=== PATIENT | male | born 1970 | race Caucasian/White ===

== ENCOUNTER 2020-06-01 12:33 | Inpatient (IN) ==
[2020-06-01 14:02] LABS: Basophils # (auto) 0.02 K/uL (0-0.2); Basophils % (auto) 0.2 %; Eosinophils # (auto) 0.27 K/uL (0-0.5); Eosinophils % (auto) 3.2 %; Hematocrit (blood only) 43.6 % (42-52); Immature Granulocytes # (auto) 0.04 K/uL (0.00-0.02); Immature Granulocytes % (auto) 0.5 %; Lymphocytes # (auto) 2.25 K/uL (1.2-3.4); Lymphocytes % (auto) 26.8 %; Mean Corpuscular Hemoglobin 29.5 pg (25-34); Mean Corpuscular Hgb Conc 34.4 g/dL (32-36); Mean Corpuscular Volume 85.8 fL (80-100); Mean Platelet Volume 10.1 fL (7.4-10.4); Monocytes # (auto) 0.48 K/uL (0.11-0.59); Monocytes % (auto) 5.7 %; Neutrophils # (auto) 5.33 K/uL (1.4-6.5); Neutrophils % (auto) 63.6 %; Platelet Count 170 K/uL (130-400); RDW Coefficient of Variation 12.8 % (11.5-14.5); RDW Standard Deviation 40.3 fL (36.4-46.3); Red Blood Count 5.08 M/uL (4.7-6.1); White Blood Count 8.39 K/uL (4.8-10.8)
[2020-06-01 14:15] LABS: INR 1.1 (0.9-1.1); Partial Thromboplastin Time 28.2 Seconds (21.0-31.0); Prothrombin Time 11.2 Seconds (9.0-12.0)
--- NOTE | 2020-06-01 14:15 | Emergency Department Note ---
History of Present Illness General Chief complaint: Leg Injury/Pain Stated complaint: R LEG SWELLING AND PAIN Time Seen by Provider: 06/01/20 12:55 History of Present Illness Maximum Pain Intensity: 9 49-year-old male who presents to the emergency department with complaint of right leg swelling, chest pressure and shortness of breath. The patient reports that he started to get some right calf pain Thday evening, then swelling started yesterday. The patient reports progressively worsening shortness of breath. The reports that when he walked up the steps last night to go to bed, he had difficulty breathing. The thought that it may have been from anxiety, and had him slow his breathing down. The patient reports that his symptoms did improve, and was able to sleep. When he got up this morning, shortness of breath persisted with mild chest pressure. The patient denies history of heart disease. He does report borderline hypercholesterolemia, but was never started on medications. He denies any recent injury to his right leg. 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 The patient reports that he had similar right calf pain and shortness of breath 2 months ago, but that resolved within a few days. The patient reports that his glen grimm recently had a DVT and pulmonary embolus, and was admitted to [facility]. The believes that he is in the process of undergoing a coagulopathy work-up. The patient denies any known coronary artery disease in the family. He denies tobacco use. He currently rates his d iscomfort in the chest a 2 out of 10, and 6 out of 10 in the right calf. Home Medications Home Medications Medication Instructions Recorded Confirmed Type ibuprofen [Advil] 400 mg PO Q6H PRN 06/01/20 06/01/20 History Allergies Allergy/AdvReac Type Severity Reaction Status Date / Time morphine Allergy Mild UNK Unverified 06/01/20 14:39 Past Med/Surg History Medical History Dyslipidemia Pneumonia (Resolved) Surgical History History of appendectomy History of cardiac cath Family History Brother Deep vein thrombosis Grandfather (Maternal) Diabetes Social History Smoking Status: Former smoker Tobacco Type: Cigarettes Hx Alcohol Use: Yes Alcohol type: beer Alcohol Intake Frequency: Monthly or Less Hx Substance Use: No Preferred Language: Malawian Communication Ability: Effective 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 Beliefs That Will Affect Care: None marital status: Current Living Situation: Spouse Other Information That Helps Us Care for You: No Feels Safe at Home: Yes Safety Concerns: Feels Safe At This Time Review of Systems 10 system review was performed and was negative except for pertinent positives and negatives as indicated in history of present illness Physical Exam Vital Signs Vital Signs - 24 hr 06/01/20 12:39 06/01/20 13:40 06/01/20 14:34 Temperature 36.7 C Temperature Source Oral Pulse Rate 67 Pulse Rate [Apical] 62 Respiratory Rate 20 18 Respiratory Depth Normal Blood Pressure 146/89 H Blood Pressure [Left Arm] 141/80 H Blood Pressure Mean 108 Blood Pressure Mean [Left Arm] 100 Pulse Oximetry 96 96 95 Oxygen Delivery Method Room Air Room Air Room Air Sepsis Recent Fever Within 48 Hours No Sepsis New/Unexplained Change in Mental Status N/A Sepsis Action Taken by Nursing No Action Required CONSTITUTIONAL: Healthy and well nourished. Alert and oriented X 3. Patient appears in mild discomfort with right calf pain. HEENT: Normocephalic, atraumatic. Pupils equal, round and reactive. No scl eral icterus or conjunctival injection. NECK: Full active range of motion without discomfort. LYMPHATICS: No cervical chain adenopathy. RESPIRATORY: Clear to auscultation bilaterally with no wheezing, crackles, rhonchi or stridor. CARDIOVASCULAR: Regular rate and rhythm with no murmurs, rubs or gallops. GASTROINTESTINAL: Bowel sounds present in all quadrants. Abdomen is soft and nontender to palpation. MUSCULOSKELETAL: Examination shows edema of the right calf with tenderness to palpation. No overriding erythema or increased warmth to palpation. No popliteal fullness. No tenderness to palpation about the knee or ankle. Pedal pulses are intact. INTEGUMENTARY: No rash or other significant dermatologic conditions noted. HEMATOLOGIC: No ecchymosis or petechiae. PSYCHIATRIC: Positive affect. NEUROLOGIC: No focal neurologic deficits noted. Course Course Patient history and physical exam were performed. Nurse's notes were reviewed. Vital signs were reviewed, showing a blood pressure of 146/89. The patient is otherwise afebrile, normotensive and with normal O2 saturation on room air. IV access was established, and labs were drawn. The patient refused any analgesics. Review of labs shows a normal CBC, CMP, lipase and TSH. Coagulation studies are also normal. ECG was performed and was unremarkable. The patient was placed on athletic monitor while in the emergency department. Troponin is elevated at 1.05. Chest CT angiography shows a saddle embolus that traverses the midline. Extensive pulmonary emboli is noted, involving the right distal main pulmonary artery with bulky pulmonary emboli involving the right hemithorax pulmonary arterial vasculature and to a lesser extent right upper lobe pulmonary arterial vasculature. Venous ultrasound of bilateral lower extremities also shows an extensive right lower extremity DVT. Left lower extremity is normal. The case was further discussed with Dr. Campos, ED attending physician, who recommended discussing the case further with our hospitalist regarding need to transfer to a tertiary care facility for further intervention or thrombolysis. I then discussed the case with the [facility] Hospitalist service, who requested that I also discussed the case with an school operations manager. I was able to contact Dr. Avilez, school operations manager, who recommended that since the patient is currently hemodynamically stable, he can be admitted and treated with IV heparin. I placed an order for IV heparin. I then discussed the case further with the [facility] hospitalist, who will evaluate the patient. Shortly after the patient was evaluated by the [facility] Hospitalist team, I was advised by our assembler unit that the patient's [id number] ( of the patient's brother who recently had pulmonary emboli) has requested to speak with the patient's medical provider, and that the patient be transferred to [facility]. I did explain that I would be unable to discuss this with other family members without the patient's consent per HIPAA laws. I also had our network contract manager page the [facility] hospitalist service regarding this request. The hospitalist service did go back in and speak with the patient and his , who again was concerned if the patient's condition worsens, he would need to be transferred to another facility, and could certainly be at higher risk for adverse event given his current condition. At this point, the hospitalist service came to talk to me about options for transfer. I also had our dependency case manager involved as well. In the meantime, bilateral lower extremity Dopplers were performed to show an extensive right DVT, and no DVT in the left lower extremity. These findings were discussed with the patient and . I also discussed complications with transfer to [facility], especially with their facility not being the closest tertiary care center. Our dependency case manager also discussed possible insurance implications as well. I do understand the patient's and 's concern should his condition deteriorate, and offered to discuss the case with an school operations manager at either [facility] or [facility], the two other closest tertiary care centers. The patient and were in agreement, and re quested transfer to [facility] if accepted. I then discussed the case further with Dr. Valdes, school operations manager at [facility]. The patient's case, including laboratory and imaging results, along with the patient's vital signs and current treatment, were discussed with Dr. Valdes. He indicated that because the patient is currently stable, their facility would essentially provide the same treatment, including IV heparin and telemetry. Even if the patient's case were to worsen, they would only provide additional systemic anticoagulation. He also indicated that his condition would not warrant interventional procedure. He was in agreement with our school operations manager's treatment recommendations. The case was then further discussed with the patient and , and they were relieved that they would be provided the same treatment options at our facility. They were in agreement with admission. I recontacted the [facility] Hospitalist group advise them of the patient and 's wishes. See their dictation for further treatment and final disposition. Administered Medications Heparin Sodium/Dextrose (Heparin Sodium/Dextrose) 25,000 units in 500 mls @ 0.02 mls/hr IV .Q24H [facility]; Protocol Stop: 07/01/20 15:29 Last Admin: 06/01/20 16:35 Dose: 1,500 units/hr, 30 mls/hr Documented by: [id number] Cosigned by: [id number] Discontinued Medications Acetaminophen (Tylenol) Confirm Administered Dose 650 mg .ROUTE .STK-MED ONE Stop: 06/01/20 17:33 Last Admin: 06/01/20 17:35 Dose: 650 mg Documented by: [id number] Heparin Sodium (Porcine) (Heparin Iv Bolus) Confirm Administered Dose 10,000 units .ROUTE .STK-MED ONE Stop: 06/01/20 16:15 Last Admin: 06/01/20 16:35 Dose: 7,000 units Documented by: [id number] Cosigned by: [id number] Heparin Sodium/Dextrose () 1 ea IV NOW STA; Protocol Stop: 06/01/20 15:24 Last Admin: 06/01/20 16:36 Dose: 1 ea Documented by: [id number] Ioversol (Optiray 320 125ml) 88 ml IV ONCE ONE Stop: 06/01/20 14:37 Last Admin: 06/01/20 14:38 Dose: 88 ml Documented by: [id number] Critical Care Time Critical Care Time: Yes Total Critical Care Time: 95 I have personally spent 95 minutes of critical care time in the direct management of this patient. This includes bedside care, interpretation of diagnostic studies, and testing, discussion with consultants, patient, and family members, and other required patient management activities. This 95 minutes is in excess of all separately billable procedures. Medical Decision Making Medical Records Attestation: I reviewed the patient's medical records. Home Medications Current Medication List: was personally reviewed by me Laboratory Data Attestation: I reviewed the patient's lab results. Result diagrams: 06/01/20 13:50 06/01/20 13:50 Lab Results 06/01/20 06/01/20 06/01/20 Range/Units 13:50 13:50 13:50 WBC 8.39 (4.8-10.8) K/uL RBC 5.08 (4.7-6.1) M/uL Hgb 15.0 (14.0-18.0) g/dL Hct 43.6 (42-52) % MCV 85.8 (80-100) fL MCH 29.5 (25-34) pg MCHC 34.4 (32-36) g/dL RDW Std Deviation 40.3 (36.4-46.3) fL RDW Coeff of [place] 12.8 (11.5-14.5) % Plt Count 170 (130-400) K/uL MPV 10.1 (7.4-10.4) fL Immature Gran % (Auto) 0.5 % Neut % (Auto) 63.6 % Lymph % (Auto) 26.8 % Alfalfa % (Auto) 5.7 % Eos % (Auto) 3.2 % Baso % (Auto) 0.2 % Neut # (Auto) 5.33 (1.4-6.5) K/uL Lymph # (Auto) 2.25 (1.2-3.4) K/uL Alfalfa # (Auto) 0.48 (0.11-0.59) K/uL Eos # (Auto) 0.27 (0-0.5) K/uL Baso # (Auto) 0.02 (0-0.2) K/uL Immature Gran # (Auto) 0.04 H (0.00-0.02) K/uL PT 11.2 (9.0-12.0) Seconds INR 1.1 (0.9-1.1) APTT 28.2 (21.0-31.0) Seconds PTT Ratio 1.0 Sodium 141 (136-145) mmol/L Potassium 4.1 (3.5-5.1) mmol/L Chloride 111 H (98-107) mmol/L Carbon Dioxide 26 (21-32) mmol/L Anion Gap 5.0 (3-11) BUN 17 (7-18) mg/dl Creatinine 1.37 (0.6-1.4) mg/dl Est Cr Clr Drug Dosing 75.7 ml/min Est GFR ( Amer) 69.2 Est GFR (Non-Af Amer) 59.7 BUN/Creatinine Ratio 12.2 (10-20) Glucose 89 (70-99) mg/dl Calcium 9.2 (8.5-10.1) mg/dl Total Bilirubin 0.4 (0.2-1) mg/dl AST 28 (15-37) U/L ALT 56 (12-78) U/L Alkaline Phosphatase 104 (45-117) U/L CK-MB (CK-2) 3.6 (0.5-3.6) ng/ml Troponin I 1.050 H* (0-0.045) ng/ml NT-Pro-B Natriuret Pep 678 (0-900) pg/ml Total Protein 7.5 (6.4-8.2) gm/dl Albumin 3.6 (3.4-5.0) gm/dl Globulin 3.9 (2.5-4.0) gm/dl Albumin/Globulin Ratio 0.9 (0.9-2) Lipase 193 (73-393) U/L TSH 0.908 (0.300-4.500) uIu/ml Imaging Data Attestation: I personally reviewed and interpreted this imaging study as follows: My Impression: CT angiography of the chest shows a saddle embolus with other pulmonary emboli. There is no evidence for right heart strain. Bilateral lower extremity venous Dopplers shows an extensive right lower extremity DVT. Left lower extremity is clear. Radiologist reports were reviewed. Radiologist's Impression: CT angio chest PE protocol CT DOSE: 759.22 mGy.cm HISTORY: Chest pain. Dyspnea. Chest Pain, R leg swelling - eval for PE TECHNIQUE: Multiaxial CT images of the chest were performed following the intravenous administration of contrast to evaluate the pulmonary arteries. Maximal intensity projection images were also obtained. A dose lowering technique was utilized adhering to the principles of ALARA. COMPARISON STUDY: None. FINDINGS: Study is positive for a saddle embolus. This traverses the midline. There is extensive pulmonary emboli involving the right distal main pulmonary artery with extension to the right lower and to a lesser extent right upper lobe pulmonary arterial vasculature. There is prominent but less bulky pulmonary embolic change involving the left lower and left upper pulmonary arterial vasculature. There is no evidence for right heart strain. Evaluation of the lung parenchyma shows the lungs region clear. There is minimal interstitial infiltrative change anterior aspect left upper lobe. The pulmonary apices are clear. IMPRESSION: 1. Saddle embolus. 2. Bulky pulmonary emboli involving the right hemithoracic pulmonary arterial vasculature and to a lesser extent left. US venous doppler LE BI HISTORY: Pain. Edema. R leg swelling, SOB COMPARISON STUDY: None. FINDINGS: Acute deep venous thrombosis of the right thigh and lower leg. This involves the distal femoral vein, popliteal, posterior tibial, anterior tibial, and peroneal vessels. The left leg shows no evidence for deep venous thrombosis. IMPRESSION: Extensive acute deep venous thrombosis right leg. Normal left leg. ECG Data Indication: + chest pain and + SOB/dyspnea Rate (beats per minute): 61 Rhythm: + normal sinus ECG Intervals/blocks: + Normal QRS ECG [place]: + Normal Comparison ECG Date: from (10/16/2013) Change: the following changes noted (QT interval slightly prolonged, and T wave amplitude decrease in anterior leads) Blood Pressure Blood Pressure Findings: Elevated blood pressure MDM Narrative Cardiac monitoring: An order was placed for continuous cardiac monitoring. The monitor shows a rate of 61 bpm with a normal sinus rhythm. night monitor history was reviewed throughout the evaluation, and no dysrhythmias were noted. 2 days work-up shows evidence for a saddle pulmonary embolus. The patient also has elevated troponin. It is noted that the patient does not have any right heart strain on CT imaging. The case has been discussed with our hospitalist school operations manager, as well as a tertiary care school operations manager from from [facility] who have stated that treatment at this time is with IV heparin. The patient has remained hemodynamically stable while in the emergency department. He is not dyspneic, and has maintained normal O2 saturations on room air. Not hypotensive, febrile or tachycardic. Although the patient does appear to be stable, he does have a moderate severity medical condition warranting low-dose management. I have thoroughly discussed this case with multiple medical providers and both the patient and , and they do feel comfortable and in agreement with local hospitalist management. Impression & Plan Acute saddle pulmonary embolism, Acute deep vein thrombosis (DVT) of right lower extremity, Elevated troponin I level Discharge Plan Visit Data *Final* Discharge Date/Time: 06/01/20 17:28 Chief Complaint: Leg Injury/Pain Stated Complaint: R LEG SWELLING AND PAIN ED Provider: Herlinda Campos ED Midlevel Provider: Danny Moore Discharge Problem: Acute saddle pulmonary embolism, Acute deep vein thrombosis (DVT) of right lower extremity, Elevated troponin I level Patient Disposition: Admitted As Inpatient Discharge Instructions Interventions: ED Discharge Assessment Last Done: 06/01/20 17:28 Discharge Problem: Acute saddle pulmonary embolism Qualifiers: Acute cor pulmonale presence: without acute cor pulmonale Qualified Code(s): I26.92 - Saddle embolus of pulmonary artery without acute cor pulmonale Acute deep vein thrombosis (DVT) of right lower extremity Qualifiers: Affected thrombotic vein of extremity: unspecified lower extremity proximal vein Qualified Code(s): I82.4Y1 - Acute embolism and thrombosis of unspecified deep veins of right proximal lower extremity
[2020-06-01 14:20] LABS: Alanine Aminotransferase 56 U/L (12-78); Albumin Level 3.6 gm/dl (3.4-5.0); Aspartate Aminotransferase 28 U/L (15-37); BUN Creatinine Ratio 12.2 (10-20); Blood Urea Nitrogen 17 mg/dl (7-18); Calcium 9.2 mg/dl (8.5-10.1); Carbon Dioxide 26 mmol/L (21-32); Chloride 111 mmol/L (98-107); Creatinine Clr Calc Pharmacy 75.7 ml/min; Est GFR (African American) 69.2; Est GFR (Non-African American) 59.7; Glucose 89 mg/dl (70-99); Lipase 193 U/L (73-393); Potassium 4.1 mmol/L (3.5-5.1); Sodium 141 mmol/L (136-145)
[2020-06-01 14:35] LABS: Albumin Globulin Ratio 0.9 (0.9-2); Alkaline Phosphatase 104 U/L (45-117); Bilirubin,Total 0.4 mg/dl (0.2-1); Creatine Kinase MB 3.6 ng/ml (0.5-3.6); Globulin 3.9 gm/dl (2.5-4.0); NT Pro B Type Natriuretic Pept 678 pg/ml (0-900); Thyroid Stimulating Hormone 0.908 uIu/ml (0.300-4.500); Total Protein 7.5 gm/dl (6.4-8.2)
[2020-06-01] MEDS ORDERED: OPTIRAY 320 125ml IV ONE (14:36)
--- NOTE | 2020-06-01 14:47 | CT Scan Report ---
CT angio chest PE protocol CT DOSE: 759.22 mGy.cm HISTORY: Chest pain. Dyspnea. Chest Pain, R leg swelling - eval for PE TECHNIQUE: Multiaxial CT images of the chest were performed following the intravenous administration of contrast to evaluate the pulmonary arteries. Maximal intensity projection images were also obtaine d. A dose lowering technique was utilized adhering to the principles of ALARA. COMPARISON STUDY: None. FINDINGS: Study is positive for a saddle embolus. This traverses the midline. There is extensive pulmonary emboli involving the right distal main pulmonary artery with extension t o the right lower and to a lesser extent right upper lobe pulmonary arterial vasculature. There is prominent but less bulky pulmonary embolic change involving the left lower and left upper pu lmonary arterial vasculature. There is no evidence for right heart strain. Evaluation of the lung parenchyma shows the lungs region clear. There is minimal interstitial infiltr ative change anterior aspect left upper lobe. The pulmonary apices are clear. IMPRESSION: 1. Saddle embolus. 2. Bulky pulmonary emboli involving the right hemithoracic pulmonary arterial vasculature and to a le sser extent left. ACT 112: Negative or not required by law. The above report was generated using voice recognition software. It may contain grammatical, syntax or spelling errors. Electronically signed by: Wayne Eldridge M.D. 06/01/2020 2:46 PM
--- NOTE | 2020-06-01 15:49 | Ultrasound Report ---
US venous doppler LE BI HISTORY: Pain. Edema. R leg swelling, SOB COMPARISON STUDY: None. FINDINGS: Acute deep venous thrombosis of the right thigh and lower leg. This involves the distal fem oral vein, popliteal, posterior tibial, anterior tibial, and peroneal vessels. The left leg shows no evidence for deep venous thrombosis. IMPRESSION: Extensive acute deep venous thrombosis right leg. Normal left leg. ACT 112: Negative or not required by law. The above report was generated using voice recognition software. It may contain grammatical, syntax or spelling errors. Electronically signed by: Wayne Eldridge M.D. 06/01/2020 3:48 PM
--- NOTE | 2020-06-01 16:05 | History & Physical Report ---
Date of Service June 01, 2020 History of Present Illness Chief Complaint: Right leg pain and swelling, SOB Primary Care Provider: Jesus Katz MD Pt is 49 y/o M with PMH mild dyslipidemia presented to ER with c/o R leg pain and swelling for several days. Denies any injury or trauma. Pt states some mild chest tightness and SOB with exertion for past couple of months. Last night increased SOB after climbing stairs with continued SOB with exertion today. SOB decreases at rest. Allergies Allergy/AdvReac Type Severity Reaction Status Date / Time morphine Allergy Mild UNK Unverified 06/01/20 14:39 Home Medications Home Medications Medication Instructions Recorded Confirmed Type ibuprofen [Advil] 400 mg PO Q6H PRN 06/01/20 06/01/20 History Past Med/Surg History Medical History No significant past medical history Surgical History History of cardiac cath Social History Smoking Status: Former smoker Tobacco Type: Cigarettes marital status: Current Living Situation: Spouse Feels Safe at Home: Yes Results & Data Results & [facility] ([facility] Vital Signs (Past 12 Hours) Vital Signs Temp Pulse Pulse Resp BP BP Pulse Ox 06/01/20 14:34 62 18 141/80 H 95 06/01/20 13:40 96 06/01/20 12:39 36.7 C 67 20 146/89 H 96 Code Status & VTE Plan VTE Prophylaxis Plan VTE Prophylaxis will be ordered: Yes
[2020-06-01] MEDS ORDERED: HEPARIN SOD (PORCINE) 1000 UNIT/ML 10 ML VIAL ONE (16:14)
[2020-06-01] MEDS: HEPARIN SODIUM/DEXTROSE 25,000 UNITS/500 ML BAG IV SCH (16:35)
--- NOTE | 2020-06-01 16:44 | Consultation ---
Date of Consultation June 01, 2020 Assessment & Plan (1) Saddle pulmonary embolus: (2) Elevated troponin: Pt is 49 y/o M with PMH mild dyslipidemia presented to ER with c/o R leg pain and swelling for several days. C/O mild chest tightness and SOB, dizziness with exertion for past couple of months. Last night increased SOB after climbing stairs with continued SOB with exertion today, SOB decreases at rest. Denies any worsening chest pain. In ER pt afebrile, P: 67, RR: 20, BP: 146/89, 96% on room air. No leukocytosis, H/H: 15/43, PLT: 140, normal coags, troponin: 1.0 CTA CHEST: 1. Saddle embolus. 2. Bulky pulmonary emboli involving the right hemithoracic pulmonary arterial vasculature and to a lesser extent left. VENOUS DOPPLER: Extensive acute deep venous thrombosis right leg. Normal left leg. -Hospitalist team was asked to evaluate patient for possible admission -Hypercoagulable work-up was added -ER provider - Danny Moore PA-C, as well as myself Zuleima Guerrero PA-C spoke to Dr. Avilez-supervisor core drilling/oral health therapist about patient and he had recommended patient at this time does not require further intervention and recommended heparin and monitoring on telemetry -Upon hospitalist evaluation with patient and patient's , patient's brother talking to on phone as well. Patient's and patient's brother as well of patient would like transfer to tertiary center -ER provider, Danny Moore PA-C made aware of patient and family wishes and reevaluates patient and will contact [facility] History of Present Illness Requesting Physician: Santy Moore PA-C Reason for Consultation: Possible Admission History of Present Illness Pt is 49 y/o M with PMH mild dyslipidemia presented to ER with c/o R leg pain and swelling for several days. Denies any injury or trauma. Pt states some mild chest tightness and SOB, dizziness with exertion for past couple of months. Last night increased SOB after climbing stairs with continued SOB with exertion today. SOB decreases at rest. Denies any worsening chest pain. Denies any fevers, chills, cough, hemoptysis. Does state that he drives to [facility] for work. Denies recent surgeries, any underlying known cancer. Patient reports that his brother had recent DVT and PE and has followed up with [facility] to try and find underlying cause. Patient reports that his brother was told it was unprovoked DVT/PE and he reports that he had negative hypercoagulable work-up. Denies fever/chills, diaphoresis, N/V/D/C, SANCHEZ, syncope, vision changes, neck pain, palpitations, sore throat, choking, otalgia, rhinorrhea, abdominal pain, paresthesias, weakness, rashes, urinary symptoms. Allergies Allergy/AdvReac Type Severity Reaction Status Date / Time morphine Allergy Mild UNK Unverified 06/01/20 14:39 Home Medications Home Medications Medication Instructions Recorded Confirmed Type ibuprofen [Advil] 400 mg PO Q6H PRN 06/01/20 06/01/20 History Patient History Medical History (Updated 06/01/20 @ 16:49 by Zuleima Guerrero PA-C) Dyslipidemia No significant past medical history Pneumonia (Resolved) Surgical History (Updated 06/01/20 @ 16:45 by Zuleima Guerrero PA-C) History of appendectomy History of cardiac cath Family History (Updated 06/01/20 @ 16:46 by Zuleima Guerrero PA-C) Brother Deep vein thrombosis Grandfather (Maternal) Diabetes Social History (Updated 06/01/20 @ 16:47 by Zuleima Guerrero PA-C) Smoking Status: Former smoker Tobacco Type: Cigarettes Hx Alcohol Use: Yes Alcohol Intake Frequency: Monthly or Less Hx Substance Use: No marital status: Current Living Situation: Spouse Feels Safe at Home: Yes Review of Systems Review of Systems: All systems reviewed & are unremarkable except as noted in HPI & below Physical Exam Physical Exam: General: no distress, overweight Head: normocephalic, atraumatic Eyes: conjunctiva non-injected, anicteric ENT: normal inspection external ears, nose, mucous membranes moist Neck: supple, trachea midline Lungs: clear, no respiratory distress, no wheezing/rhonchi/rales CV: RRR, no murmur, no pretibial edema Abd: normal BS, soft, non-tender Ext: no cyanosis, no calf tenderness Neuro: A&O x 3, no focal deficits noted, normal affect Skin: warm, dry Results & Data ([facility]) Vital Signs (Past 12 Hours) Vital Signs Temp Pulse Pulse Resp BP BP Pulse Ox 06/01/20 14:34 62 18 141/80 H 95 06/01/20 13:40 96 06/01/20 12:39 36.7 C 67 20 146/89 H 96 Laboratory Results Short CBC 06/01/20 Range/Units 13:50 WBC 8.39 (4.8-10.8) K/uL Hgb 15.0 (14.0-18.0) g/dL Hct 43.6 (42-52) % Plt Count 170 (130-400) K/uL BMP 06/01/20 13:50 Sodium 141 Potassium 4.1 Chloride 111 H Carbon Dioxide 26 BUN 17 Creatinine 1.37 Glucose 89 Calcium 9.2 Cardiac Enzymes 06/01/20 Range/Units 13:50 CK-MB (CK-2) 3.6 (0.5-3.6) ng/ml Troponin I 1.050 H* (0-0.045) ng/ml Liver Function 06/01/20 Range/Units 13:50 Total Bilirubin 0.4 (0.2-1) mg/dl AST 28 (15-37) U/L ALT 56 (12-78) U/L Alkaline Phosphatase 104 (45-117) U/L Albumin 3.6 (3.4-5.0) gm/dl Diagnostic Findings CTA CHEST: IMPRESSION: 1. Saddle embolus. 2. Bulky pulmonary emboli involving the right hemithoracic pulmonary arterial vasculature and to a lesser extent left. VENOUS DOPPLER: IMPRESSION: Extensive acute deep venous thrombosis right leg. Normal left leg.
--- NOTE | 2020-06-01 17:13 | History & Physical Report ---
Date of Service June 01, 2020 Assessment & Plan (1) Saddle pulmonary embolus: (2) Elevated troponin: Pt is 49 y/o M with PMH mild dyslipidemia presented to ER with c/o R leg pain and swelling for several days. C/O mild chest tightness and SOB, dizziness with exertion for past couple of months. Last night increased SOB after climbing stairs with continued SOB with exertion today, SOB decreases at rest. Denies any worsening chest pain. In ER pt afebrile, P: 67, RR: 20, BP: 146/89, 96% on room air. No leukocytosis, H/H: 15/43, PLT: 140, normal coags, troponin: 1.0 CTA CHEST: 1. Saddle embolus. 2. Bulky pulmonary emboli involving the right hemithoracic pulmonary arterial vasculature and to a lesser extent left. VENOUS DOPPLER: Extensive acute deep venous thrombosis right leg. Normal left leg. -Hospitalist team was asked to evaluate patient for admission -Hypercoagulable work-up was added -ER provider - Danny Moore PA-C, as well as myself Zuleima Guerrero PA-C spoke to Dr. Avilez-fixer supervisor/painter drum about patient and he had recommended patient at this time does not require further intervention and recommended heparin and monitoring on telemetry -Upon hospitalist evaluation with patient and patient's , patient's brother talking to on phone as well. Patient's and patient's brother would like consideration to transfer to tertiary center -ER provider, Danny Moore PA-C made aware of patient and family wishes and reevaluates patient and contacted [facility] and spoke with construction assistant continuous conveyor screen drier who reports no other intervention indicated at this time and if pt would have worsening would accept in transfer. Patient and family aware of recommendations and report understanding and wished to be admitted here at [facility] -Continue Heparin drip -Echo -Repeat troponin -EKG in am -Pulmonology consult -CBC, BMP in am (3) Dyslipidemia: Mild dyslipidemia. Not on any medications DVT Prophylaxis -Currently on Heparin IV for DVT PE that was present prior to admission Full Code as per discussion with pt Follows with Dr Katz for routine care Pt was seen and care coordinated with Dr Forte. See addendum History of Present Illness Chief Complaint: Right leg pain, SOB Primary Care Provider: Jesus Katz MD Pt is 49 y/o M with PMH mild dyslipidemia presented to ER with c/o R leg pain and swelling for several days. Denies any injury or trauma. Pt states some mild chest tightness and SOB, dizziness with exertion for past couple of months. Last night increased SOB after climbing stairs with continued SOB with exertion today. SOB decreases at rest. Denies any worsening chest pain. Denies any fevers, chills, cough, hemoptysis. Does state that he drives to [facility] for work. Denies recent surgeries, any underlying known cancer. Patient reports that his brother had recent DVT and PE and has followed up with [facility] to try and find underlying cause. Patient reports that his brother was told it was unprovoked DVT/PE and he reports that he had negative hypercoagulable work-up. Denies fever/chills, diaphoresis, N/V/D/C, SANCHEZ, syncope, vision changes, neck pain, palpitations, sore throat, choking, otalgia, rhinorrhea, abdominal pain, paresthesias, weakness, rashes, urinary symptoms. Allergies Allergy/AdvReac Type Severity Reaction Status Date / Time morphine Allergy Mild UNK Unverified 06/01/20 14:39 Home Medications Home Medications Medication Instructions Recorded Confirmed Type ibuprofen [Advil] 400 mg PO Q6H PRN 06/01/20 06/01/20 History Past Med/Surg History Medical History (Updated 06/01/20 @ 17:19 by Zuleima Guerrero PA-C) Dyslipidemia Pneumonia (Resolved) Surgical History History of appendectomy History of cardiac cath Family History Brother Deep vein thrombosis Grandfather (Maternal) Diabetes Social History Smoking Status: Former smoker Tobacco Type: Cigarettes Hx Alcohol Use: Yes Alcohol Intake Frequency: Monthly or Less Hx Substance Use: No marital status: Current Living Situation: Spouse Feels Safe at Home: Yes Review of Systems Review of Systems: All systems reviewed & are unremarkable except as noted in HPI & below Physical Exam Physical Exam: General: no distress, overweight Head: normocephalic, atraumatic Eyes: conjunctiva non-injected, anicteric ENT: normal inspection external ears, nose, mucous membranes moist Neck: supple, trachea midline Lungs: clear, no respiratory distress, no wheezing/rhonchi/rales CV: RRR, no murmur, no pretibial edema Abd: normal BS, soft, non-tender Ext: no cyanosis, RLE: +edema, no significant erythema, +tenderness to palpation calf; sensation to light touch intact, brisk capillary refill Neuro: A&O x 3, no focal deficits noted, normal affect Skin: warm, dry Results & Data Results & Data ([facility]) Vital Signs (Past 12 Hours) Vital Signs Temp Pulse Pulse Resp BP BP Pulse Ox 06/01/20 14:34 62 18 141/80 H 95 06/01/20 13:40 96 06/01/20 12:39 36.7 C 67 20 146/89 H 96 Laboratory Results Short CBC 06/01/20 Range/Units 13:50 WBC 8.39 (4.8-10.8) K/uL Hgb 15.0 (14.0-18.0) g/dL Hct 43.6 (42-52) % Plt Count 170 (130-400) K/uL BMP 06/01/20 13:50 Sodium 141 Potassium 4.1 Chloride 111 H Carbon Dioxide 26 BUN 17 Creatinine 1.37 Glucose 89 Calcium 9.2 Cardiac Enzymes 06/01/20 Range/Units 13:50 CK-MB (CK-2) 3.6 (0.5-3.6) ng/ml Troponin I 1.050 H* (0-0.045) ng/ml Liver Function 06/01/20 Range/Units 13:50 Total Bilirubin 0.4 (0.2-1) mg/dl AST 28 (15-37) U/L ALT 56 (12-78) U/L Alkaline Phosphatase 104 (45-117) U/L Albumin 3.6 (3.4-5.0) gm/dl Diagnostic Findings CTA CHEST: IMPRESSION: 1. Saddle embolus. 2. Bulky pulmonary emboli involving the right hemithoracic pulmonary arterial vasculature and to a lesser extent left. VENOUS DOPPLER: IMPRESSION: Extensive acute deep venous thrombosis right leg. Normal left leg. Code Status & VTE Plan VTE Prophylaxis Plan VTE Prophylaxis will be ordered: Yes Supervising Physician Co-Signing Physician Notes Patient was seen and examined by me, care coordinated with Zuleima Guerrero PA-C. Please see her note above for further details. Patient is a 49-year-old male with no significant past medical history, besides dyslipidemia, who now presents with extensive right lower extremity DVT and saddle pulmonary embolism. The patient reports having right calf pain since evening, then swelling which started yesterday. The patient reports progressively worsening shortness of breath and some chest pressure. He denies any recent injury to his right leg. The patient does drive to [place] weekly for work. Patient's brother also had a DVT and pulmonary embolus and was worked up for underlying coagulopathy at [facility], however results nonrevealing. Patient denies any heart disease, and quit smoking about 15 years ago. He was scheduled for screening colonoscopy however seems to be canceled due to COVID. No known history of prior or current cancer, no prior history of DVT or PE. Currently patient is lying in bed, in no acute distress. He is breathing comfortably on room air. His blood pressure is 140s over 80s. He is not tachycardic, nor tachypneic. Lung sounds are clear to auscultation bilaterally without any wheezing rhonchi or crackles, heart sounds are regular. Abdomen is soft, nontender, nondistended, obese, positive bowel sounds. Patient moves all 4 extremities spontaneously without difficulty. He is alert and oriented and answers questions appropriately. There is significant edema of right calf, and tenderness to palpation. Also noted pain with movement of right leg. Skin is otherwise warm, dry, well perfused. Patient's case was discussed with fixer supervisor/painter drum here at [facility], and it was recommended that patient is started on IV heparin, no intervention required at this moment. During my evaluation, patient was on the phone with his brother, who also has history of DVT and PE, and they were considering transfer to [facility] in case patient's medical condition would worsen. ED provider was notified, and contacted [facility] fixer supervisor/painter drum, it was recommended that patient would not be transferred at this time. Patient in agreement to be admitted to [facility]. Hypercoagulable blood work ordered, IV heparin ordered, pulmonology/fixer supervisor consulted. Patient also has elevated troponin, will continue to monitor troponin, telemetry, and will repeat twelve-lead EKG in the morning. We will also obtain echocardiogram, CTA at this point did not clearly show heart strain. Jonathan Forte MD
[2020-06-01] MEDS ORDERED: ACETAMINOPHEN 325 MG TAB ONE (17:32)
[2020-06-01] MEDS ORDERED: ACETAMINOPHEN 325 MG TAB PO PRN (17:44)
[2020-06-01 23:03] LABS: Partial Thromboplastin Ratio 1.8
[2020-06-02] MEDS ORDERED: TRAMADOL HCL 50 MG TABLET PO PRN (01:49)
[2020-06-02] MEDS: HYDROmorphone INJ 0.5 MG/0.5 ML SYR IV PRN ×2 (01:58→10:02)
[2020-06-02 06:44] LABS: Hematocrit (blood only) 40.6 % (42-52); Hemoglobin 13.9 g/dL (14.0-18.0); Mean Corpuscular Hemoglobin 29.3 pg (25-34); Mean Corpuscular Hgb Conc 34.2 g/dL (32-36); Mean Corpuscular Volume 85.7 fL (80-100); Mean Platelet Volume 10.5 fL (7.4-10.4); Platelet Count 169 K/uL (130-400); RDW Coefficient of Variation 12.8 % (11.5-14.5); Red Blood Count 4.74 M/uL (4.7-6.1)
[2020-06-02 07:09] LABS: BUN Creatinine Ratio 14.6 (10-20); Calcium 8.5 mg/dl (8.5-10.1); Est GFR (African American) 76.6; Est GFR (Non-African American) 66.1; Potassium 4.1 mmol/L (3.5-5.1)
--- NOTE | 2020-06-02 07:49 | Pulmonary Consultation ---
Date of Consultation June 02, 2020 Assessment & Plan (1) Acute saddle pulmonary embolism: Impression: 49-year-old male with questionable family history of thrombophilia presenting now with extensive right DVT and PE. He is hemodynamically stable with a normal heart rate and blood pressure and is on room air. He did demonstrate a mild elevation in troponin but BNP is normal. Echocardiogram is pending. Recommendations: 1. Acute pulmonary embolism: Continue heparin. The patient will likely require heparin for 5 days followed by 24 to 48 hours of overlap with an oral anticoagulant. Troponin is peaked and is decreasing. BMP is normal. We are pending echocardiogram. Outcomes in acute pulmonary emboli are not associated with clot burden so the volume of clot should not dictate interventions. Given the patient's hemodynamic stability, would not recommend catheter-based lysis or systemic lysis at this time. Should the patient deteriorate with tachycardia, hypotension, cardiogenic shock, or increasing oxygen requirement, could consider salvage lytic therapy, but again not indicated currently 2. Potential thrombophilia: Prothrombin gene mutation has been assessed as well as cardiolipin. We will add factor V Leiden. Other work-up for thrombophilia is deferred as measurements of protein C&S will be affected by anticoagulation and current acute clot. Given the unprovoked event an extensive nature of the clot, would recommend lifelong anticoagulation unless there is a significant contraindication to anticoagulation. 3. Extensive iliofemoral DVT: Patient does have some signs of on the leg with increased pain. Continue anticoagulation with heparin. Given the risk of potential long-term complications of phlegmasia cerulea dolens of the leg, it would be appropriate to discuss with interventional radiology whether or not catheter-based lysis of the lower extremity clot be appropriate. He is a complicated case as typically catheter directed TPA requires discontinuation of systemic heparin and I would not favor holding heparin and given his extensive burden of pulmonary embolus. We will continue to follow with you Acute cor pulmonale presence: without acute cor pulmonale Qualified Code(s): I26.92 - Saddle embolus of pulmonary artery without acute cor pulmonale (2) Acute deep vein thrombosis (DVT) of right lower extremity: Affected thrombotic vein of extremity: unspecified lower extremity proximal vein Qualified Code(s): I82.4Y1 - Acute embolism and thrombosis of unspecified deep veins of right proximal lower extremity History of Present Illness Attending Physician: Sherron Tim DO History of Present Illness Asked by hospitalist to assist in management this patient admitted with extensive DVT and PE. History is obtained from discussion with the patient as well as review the electronic medical record. Case was also discussed with the ER attending and with the hospitalist service. Patient is a 49-year-old male without significant past medical history. He quit smoking over 12 years ago. 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 He states that last after his drive he noticed some swelling in his right calf. This got worse on return to [place] and the patient was seen by his primary care provider who referred him to the emergency room. He does report that he had some slight shortness of breath while climbing a flight of stairs but is not had any syncope or presyncope. He does relate a vague history of chest pressure going back for several months. He is never had a cardiac work-up previous to this. In the emergency room he was studied with a CT angios right lower extremity clot as well as a fairly high clot burden of pulmonary emboli. The patient was completely hemodynamically stable with a normal heart rate and blood pressure. He was on room air. I was initially contacted about referral to a tertiary center. I advised that the patient could be managed here. Apparently discussions were also had with [facility] roof truss detailer who agreed with coagulation and monitoring. The patient states that he does have a family history of clotting disorder. His brother has an unprovoked clot and is on anticoagulation. It is unclear what work-up for thrombophilia was conducted and his brother. No other history of clotting or bleeding disorders or sudden cardiac that he is aware of. Allergies Allergy/AdvReac Type Severity Reaction Status Date / Time morphine Allergy Mild UNK Unverified 06/01/20 14:39 Home Medications Home Medications Medication Instructions Recorded Confirmed Type ibuprofen [Advil] 400 mg PO Q6H PRN 06/01/20 06/01/20 History Patient History Medical History Dyslipidemia Pneumonia (Resolved) Surgical History History of appendectomy History of cardiac cath Family History Brother Deep vein thrombosis Grandfather (Maternal) Diabetes Social History Smoking Status: Former smoker Tobacco Type: Cigarettes Hx Alcohol Use: Yes Alcohol type: beer Alcohol Intake Frequency: Monthly or Less Hx Substance Use: No Preferred Language: Setswana Communication Ability: Effective Soft Work Cigar Machine Operator Required: No Beliefs That Will Affect Care: None marital status: Current Living Situation: Spouse Other Information That Helps Us Care for You: No Feels Safe at Home: Yes Safety Concerns: Feels Safe At This Time Review of Systems Review of Systems: Please refer to admission H&P. No additions or deletions Physical Exam Constitutional: WD/WN, vitals as above Neck: trachea midline, no thyromegaly Respiratory: normal respiratory effort, lungs clear to auscultation Cardiovascular: RRR, no murmur, no edema Gastrointestinal (Abdomen): normal bowel sounds, soft, nontender, no hepatosplenomegaly Musculoskeletal: Extremities: extremities normal to inspection Skin: no rashes, warm and dry Neurologic: Nonfocal exam Lymphatic: no cervical lymphadenopathy Results & Data Results & Data ([facility]) Vital Signs (Past 12 Hours) Vital Signs Temp Pulse Resp BP Pulse Ox 06/02/20 03:25 36.7 C 63 18 116/71 91 06/02/20 00:06 36.7 C 68 18 120/83 98 Laboratory Results 06/02/20 06:01 06/02/20 06:01 Initial troponin I 0.050 decreased down to 0.743 BNP normal at 678 Anticardiolipin and prothrombin gene mutation pending Diagnostic Findings CT angiogram reviewed independently. There is extensive filling defects including saddle emboli with clot filling the vast majority of the right lower lobe pulmonary artery. EKG reviewed. No findings concerning for right heart strain. PG Care Time/CCT Total # of Minutes Spent Total Time Spent with Patient: Total time spent is greater than 50% in coordin ation of care (as documented) at patient's floor/unit and/or counseling patient: Coding Level of Care Code 40668 Inpt Consult Level 5 Diagnoses Acute saddle pulmonary embolism I26.92 Acute cor pulmonale presence: without acute cor pulmonale Acute deep vein thrombosis (DVT) of right lower extremity I82.4Y1 Affected thrombotic vein of extremity: unspecified lower extremity proximal vein Time Spent (min) 59
[2020-06-02] MEDS: HEPARIN SODIUM/DEXTROSE 25,000 UNITS/500 ML BAG IV SCH (09:15)
[2020-06-02 09:48] LABS: Partial Thromboplastin Ratio 1.5; Partial Thromboplastin Time 42.5 Seconds (21.0-31.0)
[2020-06-02] MEDS ORDERED: HEPARIN IV BOLUS 3,000 UNITS in SYRINGE 0 ML IV ONE (12:45)
[2020-06-02] MEDS ORDERED: OXYCODONE HCL IR 5 MG TAB (IMMEDIATE RELEASE) PO PRN (12:53)
[2020-06-02] MEDS ORDERED: OXYCODONE HCL IR 5 MG TAB (IMMEDIATE RELEASE) PO STA (12:53)
--- NOTE | 2020-06-02 12:59 | Hospitalist Progress Note ---
Date of Service June 02, 2020 Assessment & Plan (1) Saddle pulmonary embolus: heparin drip for now with transition to oral anticoagulant as things settle down in a couple of days. Not requiring oxygen supplementation. (2) DVT (deep venous thrombosis): post thrombotic syndrome. Support pain with medications. Started scheduled APAP and PRN oxycodone. DVT /PE thought to be unprovoked. Hyper coagulable panel is pending. (3) Elevated troponin: likely related to demand ischemia. No chest pain, normal EKG. Sinus rhythm on the monitor. Echo pending. (4) Dyslipidemia: (5) DVT prophylaxis: heparin drip Full Code Dispo-continue hospitalization. Plan for home with clinically improved. Sherron Tim DO [facility] Hospitalist Admission and Anticipated Discharge Date Admission Date: June 01, 2020 Subjective Increased R leg pain ovenright Dilaudid and tramadol not effective Discussed options and decided on scheduled APAP and oxycodone PRN Heparin drip running Denies increased work of breathing except with exertion Bilateral LE pulses are Dopplerable. Pt reports concern for covid-19 based on a possible positive contact in March. Review of Systems Review of Systems: All systems reviewed & are unremarkable except as noted in Subjective Physical Exam Physical Exam: CONSTITUTIONAL: WNWD, vitals as above, generally well- appearing EYES: normal conjunctivae, no scleral icterus ENT: external ear and nose normal, oropharynx clear, MMM RESPIRATORY: clear to auscultation bilaterally, no crackles, rales or wheezes, normal respiratory effort CARDIOVASCULAR: regular rate and rhythm, S1 and 2 heard without murmurs, gallops or rubs, no JVD, no peripheral edema GASTROINTESTINAL: soft, nontender, nondistended MUSCULOSKELETAL: strength 5/5 throughout, head is normocephalic and atraumatic SKIN: warm and dry, no discoloration to r leg at this time. NEUROLOGIC: CN 2-12 grossly intact, normal cognition, normal speech, no tremor, no gross focal deficits. PSYCHIATRIC: alert cooperative and oriented to person, place and time. Results & Data Results & Data ([facility]) Vital Signs (Past 12 Hours) Vital Signs Temp Pulse Pulse Resp BP Pulse Ox 06/02/20 11:47 57 L 06/02/20 11:41 37.0 C 58 L 18 147/68 H 98 06/02/20 08:13 36.8 C 60 18 121/71 96 06/02/20 03:25 36.7 C 63 18 116/71 91 Laboratory Results Short CBC 06/01/20 06/02/20 Range/Units 13:50 06:01 WBC 8.39 7.80 (4.8-10.8) K/uL Hgb 15.0 13.9 L (14.0-18.0) g/dL Hct 43.6 40.6 L (42-52) % Plt Count 170 169 (130-400) K/uL BMP 06/01/20 06/02/20 13:50 06:01 Sodium 141 140 Potassium 4.1 4.1 Chloride 111 H 108 H Carbon Dioxide 26 26 BUN 17 18 Creatinine 1.37 1.26 Glucose 89 104 H Calcium 9.2 8.5 Cardiac Enzymes 06/01/20 06/01/20 Range/Units 13:50 19:50 CK-MB (CK-2) 3.6 (0.5-3.6) ng/ml Troponin I 1.050 H* 0.743 H* (0-0.045) ng/ml Liver Function 06/01/20 Range/Units 13:50 Total Bilirubin 0.4 (0.2-1) mg/dl AST 28 (15-37) U/L ALT 56 (12-78) U/L Alkaline Phosphatase 104 (45-117) U/L Albumin 3.6 (3.4-5.0) gm/dl Medications Administered Current Inpatient Medications Hydromorphone HCl (Dilaudid) 0.25 mg IV Q3H PRN PRN Reason: Pain Stop: 06/16/20 01:48 Last Admin: 06/02/20 10:02 Dose: 0.25 mg Documented by: Heparin Sodium/Dextrose (Heparin Sodium/Dextrose) 25,000 units in 500 mls @ 33 mls/hr IV .[id number] [facility]; Protocol Stop: 07/01/20 15:29 Last Titration: 06/02/20 12:24 Dose: 1,650 units/hr, 33 mls/hr Documented by:
--- NOTE | 2020-06-02 13:08 | Electrocardiogram Report ---
Test Reason : Blood Pressure : / mmHG Vent. Rate : 061 BPM Atrial Rate : 061 BPM P-R Int : 130 ms QRS Dur : 088 ms QT Int : 422 ms P-R-T Axes : 026 048 017 degrees QTc Int : 424 ms Normal sinus rhythm RSR' or QR pattern in V1 suggests right ventricular conduction delay Nonspecific ST abnormality Abnormal ECG When compared with ECG of 16-OCT-2013 10:13, T wave amplitude has decreased in Anterior leads QT has lengthened Confirmed by Víctor Araiza ([id number]) on 06/02/2020 1:08:20 PM Referred By: REFERRED SELF Confirmed By:Víctor Araiza
[2020-06-02] MEDS: ACETAMINOPHEN 500 MG TAB PO SCH ×2 (13:09→22:03)
--- NOTE | 2020-06-02 13:25 | Electrocardiogram Report ---
Test Reason : Blood Pressure : / mmHG Vent. Rate : 056 BPM Atrial Rate : 056 BPM P-R Int : 126 ms QRS Dur : 090 ms QT Int : 486 ms P-R-T Axes : 030 056 035 degrees QTc Int : 468 ms Sinus bradycardia RSR' or QR pattern in V1 suggests right ventricular conduction delay Otherwise Normal ECG When compared with ECG of 01-JUN-2020 13:44, (unconfirmed) No significant change was found Confirmed by Víctor Araiza ([id number]) on 06/02/2020 1:25:01 PM Referred By: REFERRED SELF Confirmed By:Víctor Araiza
[2020-06-02 19:54] LABS: Partial Thromboplastin Time 56.6 Seconds (21.0-31.0)
[2020-06-03] MEDS: HEPARIN SODIUM/DEXTROSE 25,000 UNITS/500 ML BAG IV SCH ×2 (00:18→15:19)
[2020-06-03] MEDS: HYDROmorphone INJ 0.5 MG/0.5 ML SYR IV PRN ×4 (03:30→23:31)
[2020-06-03] MEDS ORDERED: LORazepam 0.25 MG/0.5 ML VIAL IV PRN (05:11)
[2020-06-03] MEDS ORDERED: POLYETHYLENE (MIRALAX) 17 GM PACK PO PRN (05:12)
[2020-06-03] MEDS ORDERED: PROMETHAZINE HCL 12.5 MG in SODIUM CHLORIDE 0.9% 50 ML IV PRN (05:19)
[2020-06-03] MEDS: ACETAMINOPHEN 500 MG TAB PO SCH ×3 (05:23→21:33)
[2020-06-03] MEDS: DOCUSATE SODIUM/SENNA 50/8.6MG TAB PO SCH (05:23)
[2020-06-03 07:48] LABS: Hematocrit (blood only) 41.5 % (42-52); Hemoglobin 14.9 g/dL (14.0-18.0); Mean Corpuscular Hemoglobin 31.3 pg (25-34); Mean Corpuscular Hgb Conc 35.9 g/dL (32-36); Mean Corpuscular Volume 87.2 fL (80-100); Mean Platelet Volume 9.9 fL (7.4-10.4); Platelet Count 190 K/uL (130-400); RDW Coefficient of Variation 12.8 % (11.5-14.5); RDW Standard Deviation 41.1 fL (36.4-46.3); Red Blood Count 4.76 M/uL (4.7-6.1); White Blood Count 7.59 K/uL (4.8-10.8)
[2020-06-03 08:09] LABS: Partial Thromboplastin Ratio 1.9
[2020-06-03 08:12] LABS: BUN Creatinine Ratio 10.1 (10-20); Calcium 9.3 mg/dl (8.5-10.1); Creatinine Clr Calc Pharmacy 69.3 ml/min; Est GFR (African American) 62.5; Potassium 4.1 mmol/L (3.5-5.1)
[2020-06-03 08:13] LABS: Partial Thromboplastin Time 51.8 Seconds (21.0-31.0)
--- NOTE | 2020-06-03 12:54 | Pulmonology Progress Note ---
Date of Service June 03, 2020 Assessment & Plan (1) Acute saddle pulmonary embolism: Impression: 49-year-old male with questionable family history of thrombophilia presenting now with extensive right DVT and PE. Currently he is hemodynamically stable. Echocardiogram demonstrates significant right ventricular strain with evidence of pulmonary hypertension. Recommendations: 1. Acute pulmonary embolism: Continue heparin for the time being. Upon discharge, he can be switched over to a novel anticoagulant. Maintain sats greater than 92%. Additionally, I suspect that he has a high likelihood of obstructive sleep apnea. We will obtain a nocturnal pulse oximetry given his submassive pulmonary embolism and high risk for obstructive sleep apnea. Hopefully, if this demonstrates hypoxemia, this will allow us to send him home with an auto CPAP as he is at very significant risk for further right heart strain and complications due to this given his acute pulmonary embolism and likely chronic obstructive sleep apnea. He will need a formal outpatient sleep study. 2. Potential thrombophilia: Prothrombin gene mutation has been assessed as well as cardiolipin. We will add factor V Leiden. Other work-up for thrombophilia is deferred as measurements of protein C&S will be affected by anticoagulation and current acute clot. Given the unprovoked event an extensive nature of the clot, would recommend lifelong anticoagulation unless there is a significant contraindication to anticoagulation. 3. Extensive iliofemoral DVT: The swelling appears to be improving. No need for catheter directed thrombolysis at this time. We will continue to follow with you Acute cor pulmonale presence: without acute cor pulmonale Qualified Code(s): I26.92 - Saddle embolus of pulmonary artery without acute cor pulmonale (2) Acute deep vein thrombosis (DVT) of right lower extremity: Affected thrombotic vein of extremity: unspecified lower extremity proximal vein Qualified Code(s): I82.4Y1 - Acute embolism and thrombosis of unspecified deep veins of right proximal lower extremity Admission and Anticipated Discharge Date Admission Date: June 01, 2020 Subjective Patient is overall feeling better today. Appetite has been adequate. Right leg pain has improved along with swelling. He is keeping the right leg elevated for the most part. Denies any chest pain but he does become short of breath with minimal exertion. He is currently saturating 95% on room air. Afebrile overnight. Review of Systems Review of Systems: All systems reviewed & are unremarkable except as noted in HPI & below Physical Exam Constitutional: WD/WN, vitals as above Neck: trachea midline, no thyromegaly Respiratory: normal respiratory effort, lungs clear to auscultation Cardiovascular: Rate/Rhythm: regular rhythm and + bradycardic Heart Sounds: normal S1 Prominent P2. Mild right lower extremity swelling. Gastrointestinal (Abdomen): normal bowel sounds, soft, nontender, no hepatosplenomegaly Musculoskeletal: no cyanosis or clubbing, extremities motor strength 5/5 Skin: no rashes, warm and dry Neurologic: patellar DTR's 2+ bilat, sensation intact Nonfocal exam Psychiatric: A+Ox3, euthymic affect Lymphatic: no cervical lymphadenopathy Results & Data Results & Data ([facility]) Vital Signs (Past 12 Hours) Vital Signs Temp Pulse Resp BP Pulse Ox 06/03/20 12:18 97.9 F 61 19 132/80 95 06/03/20 07:22 97.3 F L 52 L 19 120/81 98 06/03/20 03:27 97.5 F L 50 L 18 113/74 95 I personally reviewed vital signs, labs and chest imaging. PG Care Time/CCT Total # of Minutes Spent Total Time Spent with Patient: Total time spent is greater than 50% in coordination of care (as documented) at patient's floor/unit and/or counseling patient: Coding Level of Care Code 82713 Subseq Hosp Care Lvl 3 Diagnoses Acute saddle pulmonary embolism I26.92 Acute cor pulmonale presence: without acute cor pulmonale Acute deep vein thrombosis (DVT) of right lower extremity I82.4Y1 Affected thrombotic vein of extremity: unspecified lower extremity proximal vein
[2020-06-03] MEDS: ENOXAPARIN 100 MG/1ML SYR SQ SCH (21:32)
--- NOTE | 2020-06-03 21:56 | Hospitalist Progress Note ---
Date of Service June 03, 2020 Assessment & Plan (1) Pulmonary embolism: Presented with RLE pain and dyspnea on exertion. CTA chest showed large pulmonary emboli involving saddle embolus involving left & right main pulmonary arteries and branches. Venous duplex demonstrated extensive proximal + distal DVT RLE. VTE, present on admission, apparently unprovoked. Brother has history of DVT, seen at [facility]. Father apparently had some type of clotting disorder. Hemodynamically stable and maintained adequate oxygenation. No need for thrombolytic therapy. Case discussed with [facility] [place]- no need for transfer to tertiary care. Evaluation for hypercoagulable disorders initiated (although some results may be affected by acute VTE). Started on IV heparin. Pulmonary Medicine consulted. Echo showed pulmonary hypertension, RV dilatation with decreased systolic function. Transition from IV unfractionated heparin to SQ enoxaparin. Should be good candidate for DOAC upon discharge. Check with pt's pharmacy regarding any formulary issues. Gradually increase activity as tolerated. Outpatient consultation with Hematology recommended. Routine cancer screening coordinated by PCP recommended. (2) DVT (deep venous thrombosis): As discussed above. (3) Elevated troponin I level: Troponin I as high as 1.050. Elevated troponin probably secondary to pulmonary emboli. Echo did not show any left ventricular abnormalities. Doubt acute coronary syndrome. (4) Right ventricular dilation: Echo showed severe pulmonary hypertension with estimated PA systolic pressure 64 mm, moderate dilatation RV with moderately reduced RV systolic function, mild TR. Right heart findings on echo probably due to pulmonary emboli with RV strain. Consider sleep apnea per Pulm Med; nocturnal pulse oximetry ordered. Outpt sleep study recommended. Should have follow-up echo, perhaps in 2-3 months to reassess. (5) COVID-19 ruled out: SARS-CoV-2 PCR negative 06/02/20. (6) DVT prophylaxis: Receiving IV heparin for acute DVT & PE. (7) Discharge planning issues: Anticipated discharge to home. Family Medicine follow-up with Dr. Katz. Admission and Anticipated Discharge Date Admission Date: June 01, 2020 Subjective Recheck for pulmonary emboli and DVT. Patient seen in their room around 0950. Persistent dyspnea on exertion in room. No pleuritic chest pain, cough, hemoptysis. Persistent pain RLE, mostly medial thigh. No unusual bleeding or bruising. Has questions regarding test results and further management. Review of Systems: Constitutional- no fever. Cardiac- no anginal symptoms. Pulmonary- no cough or SOB. GI- no nausea, vomiting, diarrhea, melena, hematochezia. - no dysuria or hematuria. Otherwise, as noted above. Physical Exam Constitutional: no acute distress Respiratory: no respiratory distress Auscultation: lungs clear to auscultation bilaterally Cardiovascular: Rate/Rhythm: regular rate and regular rhythm Heart Sounds: no gallop, no murmur and no cardiac rub Vessels: dorsalis pedis pulses present (right DP diminished; right PT strong); no JVD Extremities: normal capillary refill and + edema (trace edema right calf); no calf tenderness Gastrointestinal (Abdomen): normal bowel sounds, soft, nontender, no hepatosplenomegaly Musculoskeletal: Extremities: no cyanosis Skin: no rashes, warm and dry Psychiatric: Orientation: alert and oriented x 3 Results & Data Results & Data ([facility]) Vital Signs (Past 12 Hours) Vital Signs Temp Pulse Resp BP Pulse Ox 06/03/20 19:44 36.5 C 54 L 18 138/82 90 06/03/20 15:45 36.7 C 59 L 18 130/76 92 06/03/20 12:18 36.6 C 61 19 132/80 95 Laboratory Results Laboratory Results - last 24 hr 06/03/20 06/03/20 06/03/20 07:02 07:02 07:02 WBC 7.59 RBC 4.76 Hgb 14.9 Hct 41.5 L MCV 87.2 MCH 31.3 MCHC 35.9 RDW Std Deviation 41.1 RDW Coeff of [place] 12.8 Plt Count 190 MPV 9.9 APTT 51.8 H* PTT Ratio 1.9 Sodium 138 Potassium 4.1 Chloride 104 Carbon Dioxide 29 Anion Gap 5.0 BUN 15 Creatinine 1.49 H Est Cr Clr Drug Dosing 69.3 Est GFR ( Amer) 62.5 Est GFR (Non-Af Amer) 54.0 BUN/Creatinine Ratio 10.1 Glucose 111 H Calcium 9.3
[2020-06-04 03:08] LABS: Appearance Urine Clear (Clear); Bilirubin Urine Negative (Negative); Blood Urine Negative (Negative); Color Urine Yellow; Glucose Urine UA Negative (Negative); Ketones Urine Negative (Negative); Leukocyte Esterase Urine Negative (Negative); Nitrite Urine Negative (Negative); Protein Urine Negative (Negative); Specific Gravity Urine 1.008 (1.000-1.030); Urobilinogen Urine Negative (Negative)
[2020-06-04] MEDS: ACETAMINOPHEN 500 MG TAB PO SCH ×3 (05:59→20:57)
[2020-06-04 07:03] LABS: BUN Creatinine Ratio 11.2 (10-20); Calcium 9.1 mg/dl (8.5-10.1); Creatinine Clr Calc Pharmacy 67.1 ml/min; Est GFR (African American) 60.1; Est GFR (Non-African American) 51.8; Potassium 4.4 mmol/L (3.5-5.1)
[2020-06-04] MEDS: DOCUSATE SODIUM/SENNA 50/8.6MG TAB PO SCH (08:19)
[2020-06-04] MEDS: ENOXAPARIN 100 MG/1ML SYR SQ SCH ×2 (08:19→20:57)
[2020-06-04] MEDS: HYDROmorphone INJ 0.5 MG/0.5 ML SYR IV PRN ×3 (10:57→19:01)
--- NOTE | 2020-06-04 11:42 | Pulmonology Progress Note ---
Date of Service June 04, 2020 Assessment & Plan (1) Acute saddle pulmonary embolism: Impression: 49-year-old male with questionable family history of thrombophilia presenting now with extensive right DVT and PE. Currently he is hemodynamically stable. Echocardiogram demonstrates significant right ventricular strain with evidence of pulmonary hypertension. Recommendations: 1. Acute pulmonary embolism: The patient has been switched to Lovenox from heparin drip which is reasonable. He will need to be discharged on a direct oral anticoagulant prior to discharge. Maintain sats greater than 92%. Nocturnal oximetry study is consistent with nocturnal hypoxemia. We will give him supplemental oxygen at night and he will need to undergo a sleep study as an outpatient. I would also recommend a repeat echocardiogram in 3 months to follow-up on the pulmonary pretension. 2. Potential thrombophilia: Genetic testing for factor V Leiden mutation pending. This can be followed up by his primary care. 3. Extensive iliofemoral DVT: The swelling appears to be improving. No need for catheter directed thrombolysis at this time. Pulmonary will sign off at this time. Thank you for the consult. Acute cor pulmonale presence: without acute cor pulmonale Qualified Code(s): I26.92 - Saddle embolus of pulmonary artery without acute cor pulmonale (2) Acute deep vein thrombosis (DVT) of right lower extremity: Affected thrombotic vein of extremity: unspecified lower extremity proximal vein Qualified Code(s): I82.4Y1 - Acute embolism and thrombosis of unspecified deep veins of right proximal lower extremity Admission and Anticipated Discharge Date Admission Date: June 01, 2020 Subjective Patient is still having significant right lower extremity pain. Swelling remains but is improved from initial presentation. He denies any chest pain. He does have exertional dyspnea. He slept much better last night. He was able to complete the nocturnal pulse oximetry study. Physical Exam Constitutional: WD/WN, vitals as above Neck: trachea midline, no thyromegaly Respiratory: normal respiratory effort, lungs clear to auscultation Cardiovascular: Rate/Rhythm: regular rhythm and + bradycardic Heart Sounds: normal S1 Prominent P2. Mild right lower extremity swelling. Gastrointestinal (Abdomen): normal bowel sounds, soft, nontender, no hepatosplenomegaly Musculoskeletal: no cyanosis or clubbing, extremities motor strength 5/5 Skin: no rashes, warm and dry Neurologic: patellar DTR's 2+ bilat, sensation intact Nonfocal exam Psychiatric: A+Ox3, euthymic affect Lymphatic: no cervical lymphadenopathy Results & Data Results & Data ([facility]) Vital Signs (Past 12 Hours) Vital Signs Temp Pulse Pulse Pulse Resp BP Pulse Ox 06/04/20 11:32 97.7 F 56 L 19 114/79 93 06/04/20 10:44 58 L 22 117/84 98 06/04/20 06:58 97.7 F 55 L 19 118/73 95 06/04/20 05:15 51 L 06/04/20 03:35 98.6 F 54 L 17 107/71 96 06/04/20 03:05 49 L 06/04/20 00:34 48 L Pulse Ox 06/04/20 11:32 06/04/20 10:44 06/04/20 06:58 06/04/20 05:15 93 06/04/20 03:35 06/04/20 03:05 93 06/04/20 00:34 89 L PG Care Time/CCT Total # of Minutes Spent Total Time Spent with Patient: Total time spent is greater than 50% in coordination of care (as documented) at patient's floor/unit and/or counseling patient: Coding Level of Care Code 70116 Subseq Hosp Care Lvl 2 Diagnoses Acute saddle pulmonary embolism I26.92 Acute cor pulmonale presence: without acute cor pulmonale Acute deep vein thrombosis (DVT) of right lower extremity I82.4Y1 Affected thrombotic vein of extremity: unspecified lower extremity proximal vein
--- NOTE | 2020-06-04 19:19 | XRay Report ---
SINGLE VIEW CHEST CLINICAL HISTORY: Dyspnea. Pulmonary embolus. FINDINGS: An AP, portable, semierect chest radiograph is compared to study dated 10/16/2013 and corre lated with chest CT dated 06/01/2020. The examination is degraded by portable technique and apical lord otic positioning. The heart is top normal for projection. The mediastinal contour is within normal li mits. The pulmonary vasculature is noncongested. There is elevation of the right hemidiaphragm and bi basilar atelectasis. There are developing airspace opacities in the left upper lobe. No large pleural effusion is identified. No pneumothorax is seen. The bony thorax is grossly intact. IMPRESSION: There are developing airspace opacities in the left upper lobe. This likely represents a pulmonary infarct given the burden of pulmonary embolus. Correlate clinically for evidence of a super imposed infectious/inflammatory pneumonitis. ACT 112: Negative or not required by law. Electronically signed by: Andrew Plunkett M.D. 06/04/2020 7:17 PM
--- NOTE | 2020-06-04 20:11 | Hospitalist Progress Note ---
Date of Service June 04, 2020 Assessment & Plan (1) Pulmonary embolism: Presented with RLE pain and dyspnea on exertion. CTA chest showed large pulmonary emboli involving saddle embolus involving left & right main pulmonary arteries and branches. Venous duplex demonstrated extensive proximal + distal DVT RLE. VTE, present on admission, apparently unprovoked. Brother has history of DVT, seen at [facility]. Father apparently had some type of clotting disorder. Hemodynamically stable and maintained adequate oxygenation; thrombolytic therapy not indicated. Case discussed with [facility] [place] day of admission- no need for transfer to tertiary care. Evaluation for hypercoagulable disorders initiated (although some results may be affected by acute VTE). Started on IV heparin. Pulmonary Medicine consulted. Echo showed pulmonary hypertension, RV dilatation with decreased systolic function. Transitioned from IV unfractionated heparin to SQ enoxaparin last night. Should be good candidate for DOAC upon discharge; will check with pt's pharmacy regarding any formulary issues. Gradually increase activity as tolerated. Analgesics / heating pad / compression stockings for phlebitic pain RLE. Outpatient consultation with Hematology recommended. Routine cancer screening coordinated by PCP recommended. (2) DVT (deep venous thrombosis): As discussed above. (3) Elevated troponin I level: Troponin I as high as 1.050. Elevated troponin probably secondary to pulmonary emboli. Echo did not show any left ventricular abnormalities. Doubt acute coronary syndrome. (4) Right ventricular dilation: Echo showed severe pulmonary hypertension with estimated PA systolic pressure 64 mm, moderate dilatation RV with moderately reduced RV systolic function, mild TR. Right heart findings on echo probably due to pulmonary emboli with RV strain. Consider sleep apnea per Pulm Med; nocturnal pulse oximetry demonstrated hypoxia with O2 sats as low as 72%. Will need nocturnal O2 upon discharge. Outpt sleep study recommended. Should have follow-up echo, perhaps in 2-3 months to reassess. (5) Nocturnal hypoxemia: As discussed above. (6) COVID-19 ruled out: SARS-CoV-2 PCR negative 06/02/20. (7) DVT prophylaxis: Received IV heparin --> SQ enoxaparin for acute DVT & PE. (8) Discharge planning issues: Anticipated discharge to home. Family Medicine follow-up with Dr. Katz. Outpatient consultation with Hematology. visiting and given update. Admission and Anticipated Discharge Date Admission Date: June 01, 2020 Subjective Recheck for pulmonary emboli and DVT. Patient seen in their room around 1040; visiting. Persistent dyspnea on exertion. Occasional nonproductive cough. No pleuritic chest pain; no hemoptysis. Persistent pain right medial thigh. No unusual bleeding or bruising. Review of Systems: Constitutional- no fever. Cardiac- no anginal symptoms. Pulmonary- as noted above. GI- no nausea, vomiting, diarrhea, melena, hematochezia. - no dysuria or hematuria. Otherwise, as noted above. Physical Exam Constitutional: no acute distress Respiratory: no respiratory distress Auscultation: lungs clear to auscultation bilaterally Cardiovascular: Rate/Rhythm: regular rate and regular rhythm Heart Sounds: no gallop, no murmur and no cardiac rub Vessels: dorsalis pedis pulses present (right DP diminished; right PT strong); no JVD Extremities: normal capillary refill and + edema (1+ RLE); no calf tenderness Gastrointestinal (Abdomen): normal bowel sounds, soft, nontender, no hepatosplenomegaly Musculoskeletal: Extremities: no cyanosis Skin: no rashes, warm and dry Psychiatric: Orientation: alert and oriented x 3 Results & Data Results & Data ([facility]) Vital Signs (Past 12 Hours) Vital Signs VS @ 0658- temp 36.5, pulse 55, resp 19, BP 118/73, O2 sat 95% RA. Laboratory Results 06/03/20 07:02 06/04/20 05:57
--- NOTE | 2020-06-04 20:11 | Critical Care Consultation ---
Date of Consultation June 04, 2020 Assessment & Plan (1) Pulmonary embolism: Impression: 49-year-old male with acute saddle PE, pulmonary infarcts, right heart strain who presents to the ICU for close monitoring for risk of decompensation and potential need for TPA. Neuro - [facility] ICU: Negative Cardiac - Right heart strain/elevated troponincardiac echo reveals moderate right heart strain and right ventricle hypokinesis, significant pulmonary hypertension -Troponins peaked, chest pain appears to be pleuritic in nature -No changes on EKG -Treatment of PE as described below -Continuous monitoring on telemetry Respiratory - Submassive PE/pulmonary infarcts/nocturnal hypoxemiaCTA chest confirmed saddle PE with pulmonary emboli involving the right thoracic pulmonary arterial vasculature and to a lesser extent left -Patient underwent 2 days IV heparin infusion and transition to high-dose Lovenox, will continue -Will need oral anticoagulation on discharge -Nocturnal oximetry study is consistent with nocturnal hypoxemia, continue with supplemental oxygen at night -Pulmonology following, appreciate recommendations -Patient undergoing work-up for reported family history of thrombophilia; genetic testing for factor V Leiden mutation pending -Currently maintaining sats on room air, no indication for TPA at this time but will continue to monitor closely in ICU for now GI - Regular diet RENAL/LYTES - DESHAWN?Mild elevation of creatinine to 1.5 from 1.25 baseline -Patient has received high dose Lovenox therapy, continue to worsen would consider switching to heparin -IV fluids added for gentle resuscitation -Continue to monitor with routine BMPs, monitor electrolytes and replete as indicated - Strict I's and O's ENDO - No history of diabetes thyroid disease TSH within normal limits ICU hyperglycemic protocol HEME - H&H stable, monitor routine CBCs ID - No indication for infectious process at this time LINES/IV ACCESS - Peripheral IVs DVT PROPHYLAXIS - Acute right iliofemoral DVTconfirmed with venous Doppler study: Acute DVT of right thigh and lower leg involving distal femoral vein, popliteal, posterior tibial, anterior tibial, and peroneal vessels -Swelling is improving, dopplerable pedal pulses -No indication for mechanical intervention at this time -Continue with high-dose Lovenox therapy and monitor Thank you for allowing us to participate in the care of this patient. Please refer to my attending physician's documentation for any further recommendations. (2) Right ventricular dilation: (3) Dyslipidemia: (4) Elevated troponin: (5) Acute deep vein thrombosis (DVT) of right lower extremity: (6) Acute saddle pulmonary embolism: (7) Nocturnal hypoxemia: History of Present Illness Attending Physician: Simon Gonzales MD History of Present Illness Was consulted by the hospitalist for assistance in this patient's management with pulmonary embolism with cor pulmonale and development of pulmonary infarction and chest pain. Patient is a 49-year-old male with no significant past medical history, former smoker quit 12 years ago. Patient developed swelling in his right calf on while driving which continued to get worse. Patient had initially presented to his primary care provider who sent the patient to the emergency department. He had also had shortness of breath with activity and was taken for CTA chest which revealed saddle embolus with extensive bulky pulmonary emboli and venous Doppler of the right lower extremity showed acute deep venous thrombosis of the right thigh and left lower leg. Cardiac echo showed moderately dilated right ventricle with moderate diffuse right ventricular hypokinesis and severe pulmonary hypertension. Patient underwent 2 days of IV heparin infusion which was transitioned to high-dose Lovenox. He was being followed by pulmonology for assistance with management of PE. He has remained hemodynamically stable on room air, in sinus bradycardia, and normotensive throughout his admission. This afternoon the patient was reported to have developed chest discomfort and worsening dyspnea. He had been placed on oxygen to assist with symptom relief but remained hemodynamically stable. Chest x-ray revealed developing air space opacities in the left upper lobe consistent with pulmonary infarcts. Considering the patient's extensive PE, it was decided the patient should be monitored in ICU as he is high risk for decompensation which would require antithrombotic therapy. Case was also discussed with pulmonology On arrival to the ICU the patient appears comfortable with mild tachypnea but nonlabored and regular breathing. He was transferred on room air and maintains oxygen saturation 94% on monitor. He is mildly bradycardic with heart rate in the 50s and normotensive. He reports 5 out of 10 left-sided chest pain associated with breathing and moving. He also reports shortness of breath with activity but states that he is not currently having shortness of breath while at rest and is unchanged from previous days. He also reports throbbing pain in his right calf which radiates into his thigh and swelling which has improved over the past 2 days. He did exhibit a dry cough while deep breathing during auscultation on exam, and he states that the cough has been ongoing he currently denies headache, dizziness, syncope, recent illness or fevers, palpitations, nausea or vomiting or diarrhea, abdominal pain, weakness or numbness. At this time there is no indication for TPA, but will monitor in ICU for now given significance of extensive PE. Allergies Allergy/AdvReac Type Severity Reaction Status Date / Time morphine Allergy Mild UNK Unverified 06/01/20 14:39 Home Medications Home Medications Medication Instructions Recorded Confirmed Type ibuprofen [Advil] 400 mg PO Q6H PRN 06/01/20 06/01/20 History Patient History Medical History Dyslipidemia Pneumonia (Resolved) Surgical History History of appendectomy History of cardiac cath Family History Brother Deep vein thrombosis Grandfather (Maternal) Diabetes Social History Smoking Status: Former smoker Tobacco Type: Cigarettes Hx Alcohol Use: Yes Alcohol type: beer Alcohol Intake Frequency: Monthly or Less Hx Substance Use: No Preferred Language: Fijian Communication Ability: Effective 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 Beliefs That Will Affect Care: None marital status: Current Living Situation: Spouse Other Information That Helps Us Care for You: No Feels Safe at Home: Yes Safety Concerns: Feels Safe At This Time Review of Systems Review of Systems: All systems reviewed & are unremarkable except as noted in HPI & below Physical Exam Constitutional: cooperative and comfortable; not in distress and not diaphoretic Eyes: PERRL, conjunctivae normal, anicteric sclerae ENMT: external ear and nose normal, oropharynx normal Neck: trachea midline, no thyromegaly Respiratory: normal respiratory effort, + cough and + tachypneic; no respiratory distress and no labored breathing Auscultation: lungs clear to au scultation bilaterally; no crackles, no rhonchi and no wheezes Cardiovascular: RRR, no murmur, no edema Heart Sounds: normal S1 and normal S2 Vessels: no JVD Extremities: normal capillary refill Unilateral edema to the right lower extremity with tenderness Gastrointestinal (Abdomen): normal bowel sounds, soft, nontender, no hepatosplenomegaly Skin: no rashes, warm and dry Neurologic: PERRL, EOMI, accommodation nl, no face palsy, no dysarthria Psychiatric: A+Ox3, euthymic affect Results & Data Results & Data ([facility]) Vital Signs (Past 12 Hours) Vital Signs Temp Pulse Pulse Resp BP Pulse Ox 06/04/20 19:01 36.5 C 55 L 22 128/80 98 06/04/20 17:00 58 L 21 137/80 97 06/04/20 16:00 58 L 06/04/20 15:46 36.8 C 58 L 18 118/72 94 06/04/20 11:32 36.5 C 56 L 19 114/79 93 06/04/20 10:44 58 L 22 117/84 98 Coding Level of Care Code 35783 Inpt Consult Level 5 Diagnoses Pulmonary embolism I26.99 Right ventricular dilation I51.7 Dyslipidemia E78.5 Elevated troponin R79.89 Acute deep vein thrombosis (DVT) of right lower extremity I82.4Y1 Affected thrombotic vein of extremity: unspecified lower extremity proximal vein Acute saddle pulmonary embolism I26.92 Acute cor pulmonale presence: without acute cor pulmonale Nocturnal hypoxemia G47.34 (1) Acute deep vein thrombosis (DVT) of right lower extremity Affected thrombotic vein of extremity: unspecified lower extremity proximal vein Qualified Code(s): I82.4Y1 - Acute embolism and thrombosis of unspecified deep veins of right proximal lower extremity (2) Acute saddle pulmonary embolism Acute cor pulmonale presence: without acute cor pulmonale Qualified Code(s): I26.92 - Saddle embolus of pulmonary artery without acute cor pulmonale
[2020-06-04] MEDS ORDERED: OXYCODONE HCL IR 5 MG TAB (IMMEDIATE RELEASE) PO PRN (20:20)
[2020-06-04] MEDS ORDERED: LORazepam 0.5 MG/1 ML VIAL IV PRN (20:20)
[2020-06-04] MEDS ORDERED: NORMOSOL-R 1,000 ML IV SCH (21:45)
[2020-06-04] MEDS: HYDROmorphone INJ 1 MG/ML SYRINGE IV PRN (22:06)
[2020-06-05] MEDS: HYDROmorphone INJ 1 MG/ML SYRINGE IV PRN (03:31)
[2020-06-05 04:23] LABS: Hematocrit (blood only) 42.8 % (42-52); Hemoglobin 14.6 g/dL (14.0-18.0); Mean Corpuscular Hemoglobin 29.1 pg (25-34); Mean Corpuscular Hgb Conc 34.1 g/dL (32-36); Mean Corpuscular Volume 85.3 fL (80-100); Mean Platelet Volume 9.8 fL (7.4-10.4); Platelet Count 219 K/uL (130-400); RDW Coefficient of Variation 12.8 % (11.5-14.5); RDW Standard Deviation 39.4 fL (36.4-46.3); Red Blood Count 5.02 M/uL (4.7-6.1); White Blood Count 7.85 K/uL (4.8-10.8)
[2020-06-05 04:40] LABS: BUN Creatinine Ratio 13.6 (10-20); Calcium 8.6 mg/dl (8.5-10.1); Creatinine Clr Calc Pharmacy 67.5 ml/min; Est GFR (African American) 60.6; Est GFR (Non-African American) 52.2; Phosphorus 4.1 mg/dl (2.5-4.9); Potassium 4.4 mmol/L (3.5-5.1)
[2020-06-05] MEDS: ACETAMINOPHEN 500 MG TAB PO SCH ×3 (05:17→22:17)
--- NOTE | 2020-06-05 07:42 | Critical Care Progress Note ---
Date of Service June 05, 2020 Assessment & Plan (1) Acute saddle pulmonary embolism: Impression: 49-year-old male with acute saddle PE, pulmonary infarcts, right heart strain who presents to the ICU for close monitoring for risk of decompensation and potential need for TPA. Neuro - [facility] ICU: Negative Cardiac - Right heart strain: - Echocardiogram this admission showed LVEF >70%, RV with moderate dilation and moderate diffuse hypokinesis, severe pulmonary HTN with PA pressure of 64 mmHg. - Treatment of PE as described below. - Continuous cardiac monitoring. - Repeat Echo in 3 months to evaluate for change in R heart function. Elevated troponin: - Likely secondary to right heart strain as a result of acute saddle pulmonary embolus. - Troponin trending down appropriately 1.050 -> 0.743 ->0.062. - EKG without ST/T wave changes that would be suggestive of MT. Respiratory - Submassive PE with pulmonary infarct: - CTA chest confirmed saddle PE with pulmonary emboli involving the right thoracic pulmonary arterial vasculature and to a lesser extent left. - Patient underwent 2 days IV heparin infusion (completed 06/03) and transitioned to Lovenox 100mg SQ q12h, to continue for 2 more days (for a total of 5 days) before bridging to warfarin. - May not be a candidate for NOAC given potential genetic causes of hypercoagulability, however NOAC would be more amenable to patient's lifestyle. - Patient's brother was recently admitted to [facility] for DVT/PE and per patient his brother's hypercoagulability workup was negative. - Patient undergoing work-up for reported family history of thrombophilia; genetic testing for mutations in Factor V Leiden, Proteins C and S, anti- Cardiolipin, B2, and Prothrombin pending. - Patient does state that he drives to [facility] for work on a weekly basis and drives quite a lot on a daily basis as well. - Currently maintaining good saturation on room air, no indication for TPA at this time. - Pulmonology following, appreciate recommendations. Nocturnal hypoxemia: - Nocturnal oximetry study showed a total of 59 apneic events totaling ~ 1 hour while sleeping. - Lowest oxygen saturation 72%. - Continue supplemental oxygen at night while admitted. Patient may require formal sleep study to evaluate for KENAN and receive CPAP for home sleep. GI - - No GI concerns or complaints. - Regular diet. RENAL/LYTES - Elevated creatinine: - Mild elevation of creatinine to 1.5 from baseline of 1.25. - IV fluids added for gentle resuscitation overnight, without change in creatinine. Patient is with good oral intake and will discontinue. - Suspect elevation is 2/2 acute kidney strain from contrast and saddle PE. - Continue to monitor with routine BMPs, monitor electrolytes and replete as indicated. - - Strict I's and O's. ENDO - - No history of diabetes or thyroid disease. - TSH within normal limits. - ICU hyperglycemic protocol. HEME - - H&H stable. - Monitor routine CBCs. ID - - Patient has been afebrile and without leukocytosis. - No indication for infectious process at this time. LINES/IV ACCESS - - Peripheral IVs noted. DVT PROPHYLAXIS - Acute RLE DVT: - US RLE this admission showed DVT of right thigh and lower leg involving the distal femoral vein, popliteal, posterior tibial, anterior tibial, and peroneal vessels - R calf and thigh greater in diameter than LLE, however with improvement in swelling. - Continue high-dose Lovenox therapy as above and monitor while admitted. Thank you for allowing us to participate in the care of this patient. Please refer to Dr. Hawley's documentation for any further recommendations. (2) Acute deep vein thrombosis (DVT) of right lower extremity: (3) Right ventricular dilation: (4) Dyslipidemia: (5) Elevated troponin: (6) Nocturnal hypoxemia: (7) COVID-19 ruled out: Admission and Anticipated Discharge Date Admission Date: June 01, 2020 Supervising Physician Co-Signing Physician Notes Dr. Hoffmann was resident physician during care of patient. I separately evaluated patient for calderon portions of the history and the exam. I was present during the critical portion of medical decision making, and I discussed the case with the resident. I generally agree with the findings and plan. Patient remains hemodynamically stable, developing pulmonary infarct, stable for downgrade out of ICU. Subjective Patient without acute events overnight while in ED. Was transferred to ICU early yesterday evening for symptoms of chest discomfort and increased dyspnea. These symptoms quickly resolved with supplemental oxygen and increase in pain medication. Patient at time of my interview this AM is comfortable and saturating well on room air. Denies SOB, CP, palpitations, nausea or vomiting, dizziness or headache. Review of Systems Constitutional: no fever and no chills Respiratory: + dyspnea (overnight, but not this AM); no cough Cardiovascular: + chest pain (overnight, not this AM); no palpitations and no edema Gastrointestinal: no abdominal pain, no constipation and no diarrhea/loose stools Physical Exam Constitutional: WD/WN, vitals as above cooperative and comfortable; not in distress and not diaphoretic Eyes: PERRL, conjunctivae normal, anicteric sclerae ENMT: external ear and nose normal, oropharynx normal Neck: trachea midline, no thyromegaly Respiratory: normal respiratory effort and + tachypneic; no respiratory distress Auscultation: + wheezes (bilateral, expiratory); no crackles Cardiovascular: Rate/Rhythm: regular rate and regular rhythm Vessels: no JVD Extremities: normal capillary refill and + edema (RLE trace edema with tenderness topalpation of R calf) Gastrointestinal (Abdomen): normal bowel sounds, soft, nontender, no hepatosplenomegaly Musculoskeletal: no cyanosis or clubbing, extremities motor strength 5/5 Skin: no rashes, warm and dry Neurologic: moves all extremities; no focal motor deficits Speech / Cognition: normal speech Motor/Sensory: no tremor Psychiatric: A+Ox3, euthymic affect Results & Data Results & Data ([facility]) Vital Signs (Past 12 Hours) Vital Signs Temp Pulse Resp BP Pulse Ox 06/05/20 06:11 52 L 15 106/71 95 06/05/20 05:11 53 L 19 121/77 93 06/05/20 04:12 36.7 C 82 20 115/71 95 06/05/20 04:11 36.7 C 52 L 14 115/71 93 06/05/20 03:11 53 L 16 108/58 L 92 06/05/20 02:11 51 L 14 133/72 94 06/05/20 01:11 54 L 14 126/89 92 06/05/20 00:11 36.8 C 51 L 18 132/79 94 06/04/20 23:11 50 L 16 140/88 93 06/04/20 22:11 56 L 16 125/83 94 06/04/20 21:11 58 L 15 143/90 H 95 06/04/20 20:11 64 18 155/93 H 92 Resident Activity Tracking Resident Involvement: Resident Care Provided Care Provided: Adult Hospital Medicine (1) Acute saddle pulmonary embolism Acute cor pulmonale presence: without acute cor pulmonale Qualified Code(s): I26.92 - Saddle embolus of pulmonary artery without acute cor pulmonale (2) Acute deep vein thrombosis (DVT) of right lower extremity Affected thrombotic vein of extremity: unspecified lower extremity proximal vein Qualified Code(s): I82.4Y1 - Acute embolism and thrombosis of unspecified deep veins of right proximal lower extremity
[2020-06-05] MEDS: DOCUSATE SODIUM/SENNA 50/8.6MG TAB PO SCH (08:01)
[2020-06-05] MEDS: ENOXAPARIN 100 MG/1ML SYR SQ SCH ×2 (08:02→20:51)
[2020-06-05] MEDS: FOLIC ACID 1 MG TAB PO SCH (08:02)
--- NOTE | 2020-06-05 09:26 | Billing Data ---
Date of Service June 05, 2020 Coding Level of Care Code 67279 Subseq Hosp Care Lvl 3
[2020-06-05] MEDS: HYDROCODONE/ACETAMINOPHEN 10/325 TAB PO PRN ×2 (11:07→20:50)
--- NOTE | 2020-06-05 11:46 | Electrocardiogram Report ---
Test Reason : Blood Pressure : / mmHG Vent. Rate : 059 BPM Atrial Rate : 059 BPM P-R Int : 136 ms QRS Dur : 086 ms QT Int : 466 ms P-R-T Axes : 049 078 065 degrees QTc Int : 461 ms Sinus bradycardia Otherwise normal ECG When compared with ECG of 02-JUN-2020 07:27, No significant change was found Confirmed by Marciano Rodriguez ([id number]) on 06/05/2020 11:46:09 AM Referred By: REFERRED SELF Confirmed By:Reed Rodriguez
--- NOTE | 2020-06-05 20:42 | Hospitalist Progress Note ---
Date of Service June 05, 2020 Assessment & Plan (1) Pulmonary embolism: Presented with RLE pain and dyspnea on exertion. CTA chest showed large pulmonary emboli involving saddle embolus involving left & right main pulmonary arteries and branches. Venous duplex demonstrated extensive proximal + distal DVT RLE. VTE, present on admission, apparently unprovoked. Brother has history of DVT, seen at [facility]. Father apparently had some type of clotting disorder. Hemodynamically stable and maintained adequate oxygenation; thrombolytic therapy not indicated. Case discussed with [facility] day of admission- no need for transfer to tertiary care. Evaluation for hypercoagulable disorders initiated (although some results may be affected by acute VTE). Started on IV heparin. Pulmonary Medicine consulted. Echo showed pulmonary hypertension, RV dilatation with decreased systolic function. Transitioned from IV unfractionated heparin to SQ enoxaparin. Experienced chest discomfort 8/4. Remained hemodynamically stable. Chest x-ray suggested probable pulmonary infarct. Should be good candidate for DOAC upon discharge (unless antiphospholipid syndrome identified); will check with pt's pharmacy regarding any formulary issues. Gradually increase activity as tolerated. Analgesics / heating pad / compression stockings for phlebitic pain RLE. Outpatient consultation with Hematology recommended. Routine cancer screening coordinated by PCP recommended. (2) Pulmonary infarction: Developed chest pain 06/04. Vital signs, O2 sats, EKG stable. Troponin down from previously elevated levels associated with acute PE. Chest x-ray suggested pulmonary infarction. Analgesics PRN. (3) DVT (deep venous thrombosis): As discussed above. 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 Start folate. Check for MTHFR mutation. (5) Elevated troponin I level: Troponin I as high as 1.050. Elevated troponin probably secondary to pulmonary emboli. Echo did not show any left ventricular abnormalities. Doubt acute coronary syndrome. (6) Right ventricular dilation: Echo showed severe pulmonary hypertension with estimated PA systolic pressure 64 mm, moderate dilatation RV with moderately reduced RV systolic function, mild TR. Right heart findings on echo probably due to pulmonary emboli with RV strain. Consider sleep apnea per Pulm Med; nocturnal pulse oximetry demonstrated hypoxia with O2 sats as low as 72%. Will need nocturnal O2 upon discharge. Outpt sleep study recommended. Should have follow-up echo, perhaps in 2-3 months to reassess. (7) Nocturnal hypoxemia: As discussed above. (8) COVID-19 ruled out: SARS-CoV-2 PCR negative 06/02/20. (9) DVT prophylaxis: Received IV heparin --> SQ enoxaparin for acute DVT & PE. (10) Discharge planning issues: Anticipated discharge to home. Family Medicine follow-up with Dr. Katz. Follow-up with Pulmonary Medicine. Outpatient consultation with Hematology. Admission and Anticipated Discharge Date Admission Date: June 01, 2020 Subjective Recheck for pulmonary emboli and DVT. Patient seen in their room around 0840. Chest pressure / pain improved. No dyspnea at rest. Persistent RLE discomfort. No abnormal bleeding or bruising. Review of Systems: Constitutional- no fever. Cardiac- no anginal symptoms. Pulmonary- as noted above. GI- nausea attributed to oxycodone; no vomiting, diarrhea, melena, hematochezia. - no dysuria or hematuria. Otherwise, as noted above. Physical Exam Constitutional: no acute distress Respiratory: no respiratory distress Auscultation: lungs clear to auscultation bilaterally Cardiovascular: Rate/Rhythm: regular rate and regular rhythm Heart Sounds: no gallop, no murmur and no cardiac rub Vessels: no JVD Extremities: normal capillary refill and + edema (1+ RLE); no calf tenderness Gastrointestinal (Abdomen): normal bowel sounds, soft, nontender, no hepatosplenomegaly Musculoskeletal: Extremities: no cyanosis Skin: no rashes, warm and dry Psychiatric: Orientation: alert and oriented x 3 Results & Data Results & Data ([facility]) Vital Signs (Past 12 Hours) Vital Signs Pulse Resp BP Pulse Ox 06/05/20 17:00 61 19 06/05/20 16:50 57 L 15 06/05/20 16:40 66 21 06/05/20 16:30 54 L 22 06/05/20 16:20 54 L 20 06/05/20 16:12 57 L 14 146/83 H 06/05/20 16:10 51 L 19 06/05/20 16:00 56 L 19 06/05/20 15:50 55 L 22 06/05/20 15:46 55 L 21 136/82 06/05/20 15:30 63 06/05/20 15:20 58 L 23 06/05/20 15:17 56 L 06/05/20 15:10 54 L 22 06/05/20 15:00 58 L 27 H 06/05/20 14:50 55 L 21 06/05/20 14:40 55 L 18 06/05/20 14:30 53 L 20 06/05/20 14:20 61 16 06/05/20 14:10 60 21 06/05/20 14:00 56 L 20 06/05/20 13:30 57 L 22 06/05/20 13:00 69 20 96 06/05/20 12:30 54 L 18 88 L 06/05/20 12:11 60 17 127/88 93 06/05/20 12:00 76 20 91 06/05/20 11:30 50 L 18 92 06/05/20 11:12 44 L 14 137/76 95 06/05/20 11:00 55 L 18 93 06/05/20 10:30 56 L 18 95 06/05/20 10:12 58 L 21 121/81 94 06/05/20 10:00 55 L 16 93 06/05/20 09:36 56 L 22 92 06/05/20 09:35 62 20 124/78 93 06/05/20 09:30 59 L 23 93 06/05/20 09:11 55 L 19 124/78 91 06/05/20 09:00 61 24 95 06/05/20 08:30 63 24 89 L Laboratory Results Laboratory Results - last 24 hr 06/04/20 06/05/20 06/05/20 22:28 04:12 04:12 WBC 7.85 RBC 5.02 Hgb 14.6 Hct 42.8 MCV 85.3 MCH 29.1 MCHC 34.1 RDW Std Deviation 39.4 RDW Coeff of [place] 12.8 Plt Count 219 MPV 9.8 Sodium 140 Potassium 4.4 Chloride 107 Carbon Dioxide 27 Anion Gap 6.0 BUN 21 H Creatinine 1.53 H Est Cr Clr Drug Dosing 67.5 Est GFR ( Amer) 60.6 Est GFR (Non-Af Amer) 52.2 BUN/Creatinine Ratio 13.6 Glucose 108 H Calcium 8.6 Phosphorus 4.1 Magnesium 2.0 Troponin I 0.062 H*
[2020-06-06] MEDS: HYDROCODONE/ACETAMINOPHEN 10/325 TAB PO PRN ×3 (04:23→21:34)
[2020-06-06 04:31] LABS: Hematocrit (blood only) 44.7 % (42-52); Hemoglobin 15.6 g/dL (14.0-18.0); Mean Corpuscular Hemoglobin 29.8 pg (25-34); Mean Corpuscular Hgb Conc 34.9 g/dL (32-36); Mean Corpuscular Volume 85.3 fL (80-100); Mean Platelet Volume 10.1 fL (7.4-10.4); Platelet Count 227 K/uL (130-400); RDW Coefficient of Variation 12.7 % (11.5-14.5); RDW Standard Deviation 39.2 fL (36.4-46.3); Red Blood Count 5.24 M/uL (4.7-6.1); White Blood Count 7.27 K/uL (4.8-10.8)
[2020-06-06 04:51] LABS: BUN Creatinine Ratio 14.9 (10-20); Calcium 9.1 mg/dl (8.5-10.1); Creatinine Clr Calc Pharmacy 74.4 ml/min; Est GFR (African American) 66.8; Est GFR (Non-African American) 57.7; Potassium 4.5 mmol/L (3.5-5.1)
[2020-06-06] MEDS: ACETAMINOPHEN 500 MG TAB PO SCH ×5 (05:28→21:34)
[2020-06-06] MEDS: FOLIC ACID 1 MG TAB PO SCH (07:53)
[2020-06-06] MEDS: DOCUSATE SODIUM/SENNA 50/8.6MG TAB PO SCH (07:55)
[2020-06-06] MEDS: ENOXAPARIN 100 MG/1ML SYR SQ SCH ×2 (08:41→21:33)
--- NOTE | 2020-06-06 23:20 | Hospitalist Progress Note ---
Date of Service June 06, 2020 Assessment & Plan (1) Pulmonary embolism: Presented with RLE pain and dyspnea on exertion. CTA chest showed large pulmonary emboli involving saddle embolus involving left & right main pulmonary arteries and branches. Venous duplex demonstrated extensive proximal + distal DVT RLE. VTE, present on admission, apparently unprovoked. Brother has history of DVT, seen at [facility]. Father apparently had some type of clotting disorder. Hemodynamically stable and maintained adequate oxygenation; thrombolytic therapy not indicated. Case discussed with [facility] day of admission- no need for transfer to tertiary care. Evaluation for hypercoagulable disorders initiated (although some results may be affected by acute VTE). Started on IV heparin. Pulmonary Medicine consulted. Echo showed pulmonary hypertension, RV dilatation with decreased RV systolic function. Transitioned from IV unfractionated heparin to SQ enoxaparin. Experienced chest discomfort 8/. Remained hemodynamically stable. Chest x-ray suggested probable pulmonary infarct. Should be good candidate for DOAC upon discharge (unless antiphospholipid syndrome identified). Gradually increase activity as tolerated. Analgesics / heating pad / compression stockings for phlebitic pain RLE. Outpatient consultation with Hematology recommended. Routine cancer screening coordinated by PCP recommended. (2) Pulmonary infarction: Developed chest pain 06/04. Vital signs, O2 sats, EKG stable. Troponin down from previously elevated levels associated with acute PE. Chest x-ray suggested pulmonary infarction. Analgesics PRN. (3) DVT (deep venous thrombosis): As discussed above. 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 Start folate. Check for MTHFR mutation. (5) Elevated troponin I level: Troponin I as high as 1.050. Elevated troponin probably secondary to pulmonary emboli. Echo did not show any left ventricular abnormalities. Doubt acute coronary syndrome. (6) Right ventricular dilation: Echo showed severe pulmonary hypertension with estimated PA systolic pressure 64 mm, moderate dilatation RV with moderately reduced RV systolic function, mild TR. Right heart findings on echo probably due to pulmonary emboli with RV strain. Consider sleep apnea per Pulm Med; nocturnal pulse oximetry demonstrated hypoxia with O2 sats as low as 72%. Will need nocturnal O2 upon discharge. Outpt sleep study recommended. Should have follow-up echo, perhaps in 2-3 months to reassess. (7) Nocturnal hypoxemia: As discussed above. (8) COVID-19 ruled out: SARS-CoV-2 PCR negative 06/02/20. (9) DVT prophylaxis: Received IV heparin --> SQ enoxaparin for acute DVT & PE. (10) Discharge planning issues: Anticipated discharge to home. Family Medicine follow-up with Dr. Katz. Follow-up with Pulmonary Medicine. Outpatient consultation with Hematology. Admission and Anticipated Discharge Date Admission Date: June 01, 2020 Subjective Recheck for pulmonary emboli and DVT. Patient seen in their room around 1410. visiting. Chest pressure / pain improved. Dyspnea with exertion, but not at rest. RLE discomfort improved with compression stocking. Mild epistaxis while wearing O2. No other abnormal bleeding or bruising. Review of Systems: Constitutional- no fever. Cardiac- no anginal symptoms. Pulmonary- as noted above. GI- nausea resolved; no vomiting, diarrhea, melena, hematochezia. - no dysuria or hematuria. Otherwise, as noted above. Physical Exam Constitutional: no acute distress Respiratory: no respiratory distress Auscultation: lungs clear to auscultation bilaterally Cardiovascular: Rate/Rhythm: regular rate and regular rhythm Heart Sounds: no gallop, no murmur and no cardiac rub Vessels: no JVD Extremities: normal capillary refill and + edema (1+ RLE); no calf tenderness Gastrointestinal (Abdomen): normal bowel sounds, soft, nontender, no hepatosplenomegaly Musculoskeletal: Extremities: no cyanosis MALLORY stocking applied RLE Skin: no rashes, warm and dry Psychiatric: Orientation: alert and oriented x 3 Results & Data Results & Data ([facility]) Vital Signs (Past 12 Hours) Vital Signs Temp Pulse Resp BP Pulse Ox 06/06/20 19:04 37.4 C 72 18 138/72 93 06/06/20 16:27 36.7 C 96 06/06/20 15:22 37.1 C 60 18 119/70 92 Laboratory Results 06/06/20 04:05 06/06/20 04:05
[2020-06-07 05:58] LABS: Hematocrit (blood only) 46.3 % (42-52); Hemoglobin 15.9 g/dL (14.0-18.0); Mean Corpuscular Hemoglobin 29.5 pg (25-34); Mean Corpuscular Hgb Conc 34.3 g/dL (32-36); Mean Corpuscular Volume 85.9 fL (80-100); Platelet Count 246 K/uL (130-400); RDW Coefficient of Variation 12.7 % (11.5-14.5); RDW Standard Deviation 39.8 fL (36.4-46.3); Red Blood Count 5.39 M/uL (4.7-6.1); White Blood Count 7.69 K/uL (4.8-10.8)
[2020-06-07] MEDS: ACETAMINOPHEN 500 MG TAB PO SCH ×4 (06:09→21:06)
[2020-06-07] MEDS: HYDROCODONE/ACETAMINOPHEN 10/325 TAB PO PRN ×2 (06:09→12:23)
[2020-06-07 06:33] LABS: Anti Cardiolipin Ab IgG <14 GPL; Anti Cardiolipin Ab IgM 16 MPL; Anti-Thrombin III Activity 95 % normal (80-135); B2 Glycoprotein IgG 12 SGU (<=20); B2 Glycoprotein IgM <9 SMU (<=20); PTT LA Screen 35 sec (<=40); Protein S Functional(Activity) 125 % (70-150)
[2020-06-07 06:36] LABS: BUN Creatinine Ratio 14.8 (10-20); Calcium 9.8 mg/dl (8.5-10.1); Creatinine Clr Calc Pharmacy 70.1 ml/min; Est GFR (Non-African American) 54.4; Potassium 4.2 mmol/L (3.5-5.1)
[2020-06-07] MEDS: ENOXAPARIN 100 MG/1ML SYR SQ SCH ×2 (07:34→21:07)
[2020-06-07] MEDS: FOLIC ACID 1 MG TAB PO SCH (07:34)
[2020-06-07] MEDS: DOCUSATE SODIUM/SENNA 50/8.6MG TAB PO SCH (09:51)
--- NOTE | 2020-06-07 13:42 | CT Scan Report ---
CT head/brain wo con CT DOSE: 614.27 mGy.cm HISTORY: severe headache, r/o bleed TECHNIQUE: Multiaxial CT images of the head were performed without the use of intravenous contrast. A dose lowering technique was utilized adhering to the principles of ALARA. Comparison: None. Findings: The paranasal sinuses and mastoid air cells are clear. The calvarium and skull base are int act. The ventricles and sulci are within normal limits. There is no mass, hematoma, midline shift, or acute infarct. Impression: No acute intracranial abnormality. ACT 112: Negative or not required by law. The above report was generated using voice recognition software. It may contain grammatical, syntax or spelling errors. Electronically signed by: Wayne Eldridge M.D. 06/07/2020 1:41 PM
--- NOTE | 2020-06-07 19:57 | Hospitalist Progress Note ---
Date of Service June 07, 2020 Assessment & Plan (1) Pulmonary embolism: Presented with RLE pain and dyspnea on exertion. CTA chest showed large pulmonary emboli involving saddle embolus involving left & right main pulmonary arteries and branches. Venous duplex demonstrated extensive proximal + distal DVT RLE. VTE, present on admission, apparently unprovoked. Brother has history of DVT, seen at [facility]. Father apparently had some type of clotting disorder. Hemodynamically stable and maintained adequate oxygenation; thrombolytic therapy not indicated. Case discussed with [facility] day of admission- no need for transfer to tertiary care. Evaluation for hypercoagulable disorders initiated (although some results may be affected by acute VTE). Started on IV heparin. Pulmonary Medicine consulted. Echo showed pulmonary hypertension, RV dilatation with decreased RV systolic function. Transitioned from IV unfractionated heparin to SQ enoxaparin. Experienced chest discomfort 8/4. Remained hemodynamically stable. Chest x-ray suggested probable pulmonary infarct. Should be good candidate for DOAC upon discharge (unless antiphospholipid syndrome identified). Transition from enoxaparin to apixaban tomorrow. Gradually increase activity as tolerated. Analgesics / heating pad / compression stockings for phlebitic pain RLE. Outpatient consultation with Hematology recommended. Routine cancer screening coordinated by PCP recommended. (2) Pulmonary infarction: Developed chest pain 06/04. Vital signs, O2 sats, EKG stable. Troponin down from previously elevated levels associated with acute PE. Chest x-ray suggested pulmonary infarction. Analgesics PRN. (3) DVT (deep venous thrombosis): As discussed above. 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 Start folate. Check for MTHFR mutation. (5) Elevated troponin I level: Troponin I as high as 1.050. Elevated troponin probably secondary to pulmonary emboli. Echo did not show any left ventricular abnormalities. Doubt acute coronary syndrome. (6) Right ventricular dilation: Echo showed severe pulmonary hypertension with estimated PA systolic pressure 64 mm, moderate dilatation RV with moderately reduced RV systolic function, mild TR. Right heart findings on echo probably due to pulmonary emboli with RV strain. Consider sleep apnea per Pulm Med; nocturnal pulse oximetry demonstrated hypoxia with O2 sats as low as 72%. Will need nocturnal O2 upon discharge. Outpt sleep study recommended. Should have follow-up echo, perhaps in 2-3 months to reassess. (7) Nocturnal hypoxemia: As discussed above. (8) COVID-19 ruled out: SARS-CoV-2 PCR negative 06/02/20. (9) Headache: Complained of frontal headache. CT head negative for bleed. (10) DVT prophylaxis: Received IV heparin --> SQ enoxaparin for acute DVT & PE. (11) Discharge planning issues: Anticipated discharge to home. Family Medicine follow-up with Dr. Katz. Follow-up with Pulmonary Medicine. Outpatient consultation with Hematology. Admission and Anticipated Discharge Date Admission Date: June 01, 2020 Subjective Recheck for pulmonary emboli and DVT. Patient seen in their room around 1240. visiting. Feels wiped out. Experiencing frontal headache. Chest pressure / pain improved. Dyspnea and fatigue with exertion (although O2 sats maintained). RLE discomfort improved with compression stocking. No abnormal bleeding or bruising. Review of Systems: Constitutional- no fever. Cardiac- no anginal symptoms. Pulmonary- as noted above. GI- mild nausea; no vomiting, diarrhea, melena, hematochezia. - no dysuria or hematuria. Otherwise, as noted above. Physical Exam Constitutional: no acute distress Respiratory: no respiratory distress Auscultation: lungs clear to auscultation bilaterally Cardiovascular: Rate/Rhythm: regular rate and regular rhythm Heart Sounds: no gallop, no murmur and no cardiac rub Vessels: no JVD Extremities: normal capillary refill and + edema (1+ RLE); no calf tenderness Gastrointestinal (Abdomen): normal bowel sounds, soft, nontender, no hepatosplenomegaly Musculoskeletal: Extremities: + extremities abnormal to inspection (MALLORY stocking RLE) and no cyanosis Skin: no rashes, warm and dry Neurologic: PERRL, EOMI, no facial palsy, motor grossly intact Psychiatric: Orientation: alert and oriented x 3 Results & Data Results & Data ([facility]) Vital Signs (Past 12 Hours) Vital Signs Temp Pulse Pulse Pulse Pulse Pulse Resp 06/07/20 15:13 37.1 C 54 L 16 06/07/20 12:19 37.3 C 06/07/20 11:10 36.9 C 64 16 06/07/20 08:59 91 H 70 54 L 06/07/20 08:00 51 L Resp Resp Resp BP Pulse Ox Pulse Ox Pulse Ox 06/07/20 15:13 146/83 H 91 06/07/20 12:19 06/07/20 11:10 133/80 90 06/07/20 08:59 30 H 20 16 91 93 06/07/20 08:00 Pulse Ox 06/07/20 15:13 06/07/20 12:19 06/07/20 11:10 06/07/20 08:59 93 06/07/20 08:00 Laboratory Results 06/07/20 05:30 06/07/20 05:30 Diagnostic Findings Findings: The paranasal sinuses and mastoid air cells are clear. The calvarium and skull base are intact. The ventricles and sulci are within normal limits. There is no mass, hematoma, midline shift, or acute infarct. Impression: No acute intracranial abnormality. Electronically signed by: Wayne Eldridge M.D. 06/07/2020 1:41 PM
[2020-06-08] MEDS: ACETAMINOPHEN 500 MG TAB PO SCH (05:42)
[2020-06-08 06:34] LABS: BUN Creatinine Ratio 16.1 (10-20); Calcium 9.9 mg/dl (8.5-10.1); Creatinine Clr Calc Pharmacy 72.5 ml/min; Est GFR (African American) 65.7; Est GFR (Non-African American) 56.7; Potassium 4.1 mmol/L (3.5-5.1)
[2020-06-08] MEDS: FOLIC ACID 1 MG TAB PO SCH (07:48)
[2020-06-08] MEDS: DOCUSATE SODIUM/SENNA 50/8.6MG TAB PO SCH (07:50)
[2020-06-08] MEDS ORDERED: APIXABAN 5 MG TABLET PO SCH (09:00)
--- NOTE | 2020-06-08 10:21 | Hospitalist Progress Note ---
Date of Service June 08, 2020 Assessment & Plan (1) Pulmonary embolism: Presented with RLE pain and dyspnea on exertion. CTA chest showed large pulmonary emboli involving saddle embolus involving left & right main pulmonary arteries and branches. Venous duplex demonstrated extensive proximal + distal DVT RLE. VTE, present on admission, apparently unprovoked. Brother has history of DVT, seen at [facility]. Father apparently had some type of clotting disorder. Hemodynamically stable and maintained adequate oxygenation; thrombolytic therapy not indicated. Case discussed with [facility] day of admission- no need for transfer to tertiary care. Evaluation for hypercoagulable disorders initiated (although some results may be affected by acute VTE). Started on IV heparin. Pulmonary Medicine consulted. Echo showed pulmonary hypertension, RV dilatation with decreased RV systolic function. Transitioned from IV unfractionated heparin to SQ enoxaparin. Experienced chest discomfort 8/4. Remained hemodynamically stable. Chest x-ray suggested probable pulmonary infarct. Should be good candidate for DOAC upon discharge (unless antiphospholipid syndrome identified). Transitioned from enoxaparin to apixaban. Long-term anticoagulation anticipated. Gradually increase activity as tolerated. Analgesics / heating pad / compression stockings for phlebitic pain RLE. Outpatient consultation with Hematology recommended. Routine cancer screening coordinated by PCP recommended. (2) Pulmonary infarction: Developed chest pain 06/04. Vital signs, O2 sats, EKG stable. Troponin down from previously elevated levels associated with acute PE. Chest x-ray suggested pulmonary infarction. Analgesics PRN. (3) DVT (deep venous thrombosis): As discussed above. 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 Start folate. Check for MTHFR mutation- pending at time of discharge. (5) Elevated troponin I level: Troponin I as high as 1.050. Elevated troponin probably secondary to pulmonary emboli. Echo did not show any left ventricular abnormalities. Doubt acute coronary syndrome. (6) Right ventricular dilation: Echo showed severe pulmonary hypertension with estimated PA systolic pressure 64 mm, moderate dilatation RV with moderately reduced RV systolic function, mild TR. Right heart findings on echo probably due to pulmonary emboli with RV strain. Consider sleep apnea per Pulm Med; nocturnal pulse oximetry demonstrated hypoxia with O2 sats as low as 72%. Given Rx for home O2 2 LPM HS. Outpt sleep study recommended. Follow-up echo in about 3 months recommended. (7) Nocturnal hypoxemia: As discussed above. (8) COVID-19 ruled out: SARS-CoV-2 PCR negative 06/02/20. (9) Headache: Complained of frontal headache 06/07. CT head negative for bleed. Headache resolved. (10) DVT prophylaxis: Received IV heparin --> SQ enoxaparin for acute DVT & PE. (11) Discharge planning issues: Discharge to home. Family Medicine follow-up with Dr. Katz. Outpatient follow-up with Pulmonary Medicine. Outpatient consultation with Hematology. Admission and Anticipated Discharge Date Admission Date: June 01, 2020 Subjective Recheck for pulmonary emboli and DVT. Patient seen in their room around 0950. Feels better today. Chest pain improved. RLE discomfort improved with compression stocking. No abnormal bleeding or bruising. Ambulating. Headache resolved. Ready to go home. Review of Systems: Constitutional- no fever. Cardiac- no anginal symptoms. Pulmonary- as noted above. GI- mild nausea; no vomiting, diarrhea, melena, hematochezia. - no dysuria or hematuria. Otherwise, as noted above. Physical Exam Physical Exam: Patient ambulated ~ [address] with undersigned. Brisk pace. Mild dyspnea. No other problems. Constitutional: no acute distress Respiratory: no respiratory distress Auscultation: lungs clear to auscultation bilaterally Cardiovascular: Rate/Rhythm: regular rate and regular rhythm Heart Sounds: no gallop, no murmur and no cardiac rub Vessels: no JVD Extremities: normal capillary refill and + edema (1+ RLE); no calf tenderness Gastrointestinal (Abdomen): normal bowel sounds, soft, nontender, no hepatosplenomegaly Musculoskeletal: Extremities: + extremities abnormal to inspection (MALLORY stocking RLE) and no cyanosis Skin: no rashes, warm and dry Psychiatric: Orientation: alert and oriented x 3 Results & Data Results & Data ([facility]) Vital Signs (Past 12 Hours) Vital Signs Temp Pulse Pulse Pulse Resp BP Pulse Ox 06/08/20 07:36 37.0 C 51 L 20 101/66 93 06/08/20 03:52 53 L 06/08/20 03:47 37 C 61 18 104/68 92 06/08/20 01:36 51 L 06/08/20 00:05 53 L 06/07/20 23:45 56 L 06/07/20 23:39 36.7 C 50 L 18 119/71 93 Pulse Ox 06/08/20 07:36 06/08/20 03:52 93 06/08/20 03:47 06/08/20 01:36 89 L 06/08/20 00:05 93 06/07/20 23:45 06/07/20 23:39 Laboratory Results 06/08/20 05:33
--- NOTE | 2020-06-08 16:15 | Discharge Summary ---
Date of Service Date of Admission: 06/01/20 Date of Discharge: 06/08/20 Admission HPI Per Admitting Provider Pt is 49 y/o M with PMH mild dyslipidemia presented to ER with c/o R leg pain and swelling for several days. Denies any injury or trauma. Pt states some mild chest tightness and SOB, dizziness with exertion for past couple of months. Last night increased SOB after climbing stairs with continued SOB with exertion today. SOB decreases at rest. Denies any worsening chest pain. Denies any fevers, chills, cough, hemoptysis. Does state that he drives to [facility] for work. Denies recent surgeries, any underlying known cancer. Patient reports that his brother had recent DVT and PE and has followed up with [facility] to try and find underlying cause. Patient reports that his brother was told it was unprovoked DVT/PE and he reports that he had negative hypercoagulable work-up. Denies fever/chills, diaphoresis, N/V/D/C, SANCHEZ, syncope, vision changes, neck pain, palpitations, sore throat, choking, otalgia, rhinorrhea, abdominal pain, paresthesias, weakness, rashes, urinary symptoms. Principal Diagnosis acute pulmonary emboli, saddle and bilateral- unprovoked, present on admission DVT RLE - unprovoked, present on admission OTHER NEW / ACUTE DIAGNOSES hyperhomocysteinemia pulmonary hypertension nocturnal hypoxia, suspected sleep apnea Discharge Data Allergies Allergy/AdvReac Type Severity Reaction Status Date / Time morphine Allergy Mild UNK Unverified 06/01/20 14:39 Consultations 06/01/20 15:23 ED Decision to Admit Stat 06/01/20 17:44 Consult Pulmonology Routine 06/04/20 20:20 Consult Transportation Economics Teacher Routine 06/08/20 10:58 Burn CD for patient Routine Ordered Studies 06/01/20 13:24 US venous doppler LE BI Stat 06/01/20 13:25 CT angio chest PE protocol Stat 06/07/20 12:44 CT head/brain wo con Stat Hospital Course (1) Pulmonary embolism: Presented with RLE pain and dyspnea on exertion. CTA chest showed large pulmonary emboli involving saddle embolus involving left & right main pulmonary arteries and branches. Venous duplex demonstrated extensive proximal + distal DVT RLE. VTE, present on admission, apparently unprovoked. Nonsmoker. Brother has history of DVT, seen at [facility]. Father apparently had some type of clotting disorder. Hemodynamically stable and maintained adequate oxygenation; thrombolytic therapy not indicated. Started on IV heparin. Pulmonary Medicine consulted. Echo showed pulmonary hypertension, RV dilatation with decreased RV systolic function. Transitioned from IV unfractionated heparin to SQ enoxaparin. Experienced chest discomfort 8/4. Remained hemodynamically stable. Chest x-ray suggested probable pulmonary infarct. Transitioned from enoxaparin to apixaban. Long-term anticoagulation anticipated. Gradually increase activity as tolerated. Analgesics / heating pad / compression stockings for phlebitic pain RLE. Outpatient consultation with Hematology recommended. Routine cancer screening coordinated by PCP recommended. Evaluation for hypercoagulable disorders (everything but MTHFR done before heparin started): anti-thrombin III 95% (normal 80-135) protein C activity 130% (normal 70-180) protein S functional 125% (normal 70-150) anti-cardiolipin IgG < 14 (normal <14) anti-cardiolipin IgM 16 (normal <12, 13-20 indeterminate) anti-glycoprotein IgG 12 (normal <20) anti-glycoprotein IgM <9 (normal < 20) [id number] mutation not present factor V Leiden mutation not present lupus anticoagulant 35 (normal <40) homocysteine 13 (normal < 11.4) MTHFR mutation pending (2) Pulmonary infarction: Developed chest pain /. Vital signs, O2 sats, EKG stable. Troponin down from previously elevated levels associated with acute PE. Chest x-ray suggested pulmonary infarction. Analgesics PRN. (3) DVT (deep venous thrombosis): As discussed above. 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 Start folate 1 mg daily. Check for MTHFR mutation- pending at time of discharge. (5) Elevated troponin I level: Troponin I as high as 1.050. Elevated troponin probably secondary to pulmonary emboli. Echo did not show any left ventricular abnormalities. Doubt acute coronary syndrome. (6) Right ventricular dilation: Echo showed severe pulmonary hypertension with estimated PA systolic pressure 64 mm, moderate dilatation RV with moderately reduced RV systolic function, mild TR. Right heart findings on echo probably due to pulmonary emboli with RV strain. Consider sleep apnea per Pulm Med; nocturnal pulse oximetry demonstrated hypoxia with O2 sats as low as 72%. Given Rx for home O2 2 LPM HS. Outpt sleep study recommended. Follow-up echo in about 3 months recommended. (7) Nocturnal hypoxemia: As discussed above. (8) COVID-19 ruled out: SARS-CoV-2 PCR negative 06/02/20. (9) Headache: Complained of frontal headache 06/07. CT head negative for bleed. Headache resolved. (10) DVT prophylaxis: Received IV heparin --> SQ enoxaparin for acute DVT & PE. (11) Discharge planning issues: Discharge to home. Family Medicine follow-up with Dr. Katz. Outpatient follow-up with Pulmonary Medicine. Outpatient consultation with Hematology. Total Time Total Time Spent Total Time Spent (In Minutes): 45 Discharge Plan Discharge Items Patient Disposition: Home - Self-Care Reason For Visit: shortness of breath and leg pain Discharge Diagnosis: pulmonary emboli (blood clots in lungs) deep venous thrombosis (blood clot) right leg Activity: As commented below Activity Comment: gradually increase activity as tolerated Non-emergency contact: Primary Care Provider and Hospitalist Call non-emergency contact if: you have any medication questions and your symptoms worsen Follow-up/Referrals: Jesus Katz MD [Primary Care Provider] - 06/13/20 11:20 am (06/13/2020 11:20 AM Provider Jesus Katz MD Department Internal Medicine [facility] ) Diet: Heart Healthy Addtl Attending Provider Instructions: MEDICATION CHANGES: apixaban (Eliquis) 5 mg pills take 2 pills (10 mg) twice a day for 7 days then 1 pill (5 mg) twice a day (most likely long-term) folic acid 1 mg daily for elevated homocysteine level acetaminophen (Extra Strength Tylenol) 500 mg take 2 pills every 8 hours as needed for pain Do not use ibuprofen (Advil, Motrin, and other brands), naproxen (Aleve and other brands), or other anti-inflammatory medications while you are using blood thinners. SUMMARY OF TEST RESULTS: CT scan of chest showed blood clots in lungs. Ultrasound of legs showed blood clot in right leg. Echocardiogram showed signs of strain from blood clots (and/or sleep apnea). Oxygen levels too low when you are sleeping at night. Homocysteine level was high. This can be associated with increased risk of blood clots. Other tests related to blood clotting problems did not show any significant abnormalities. Test for COVID-19 was negative. PENDING TEST RESULTS: MTHFR mutation. I will call you with results. RECOMMENDATIONS FOR FOLLOW-UP: Outpatient Hematology consultation to discuss any further testing (if necessary) and duration of blood thinner. Please ask Dr. Katz for referral. Outpatient Pulmonary Medicine consultation re: blood clots and suspected sleep apnea. Please ask Dr. Katz for referral. Repeat echocardiogram in about [address] Katz to schedule. Outpatient sleep study as soon as convenient. Please ask Dr. Katz to schedule. OTHER INSTRUCTIONS: Oxygen 2 liters / minute while sleeping. Please do not smoke. Wearing elastic stocking can help to minimize long-term pain and swelling of leg. Elevating your leg will help with swelling. Use heating pad as needed for leg pain. Seek medical attention if you have: * temperature above 101 * chest pain or trouble breathing * abdominal pain, nausea, vomiting * diarrhea, dark stools or bloody stools * abnormal bleeding or bruising. * any unanswered questions or concerns Call 911 if symptoms are severe. Please take good care of yourself. Call if you have any questions or problems. You can reach a [facility] hospitalist on duty at [facility] 24 hours a day by calling [phone]. My cell # is [phone]. ADDITIONAL INSTRUCTIONS FOR BLOOD CLOTS Medication Instructions: Your condition is typically treated with an anticoagulant. Anticoagulants will thin your blood to help prevent new clots. * You should take her medication exactly as directed. * Never skip a dose. * Never take a double dose. If you miss a dose, take it as soon as you remember. Call your Primary Care doctor if you experience any of the following: * Swelling or Pain in your leg * Sudden, continuous pain deep in a muscle * Pain that worsens when you are active or when you stand still for a long time * Chest Pain * Sudden Shortness of Breath * Rapid or pounding heart beat * Fainting * Dizziness * Cough with blood or bloody sputum * Sweating more than normal * Bruises * Heavy or uncontrolled bleeding * Blood in your urine, stool or vomit * Black or tarry stools Caring for Your Self at Home: * Avoid sitting, standing or lying down for long periods without moving your legs and feet * When traveling by car, stop to get out and move around at least once every 3 hours * On long airplane, train or bus rides, get up and move around when possible * If you can't get up, wiggle your toes and tighten your calves to keep your blood moving Follow Up: It is important for you to keep your follow up appointments with your medical provider. Pending Studies at Discharge: Yes Studies:: MTHFR mutation Stand-Alone Forms: My [facility], Work/School Release (Inpt), Smoking Cessation Medications and DC Order Prescriptions: New Eliquis 5 mg tablet 5 mg PO BID Qty: 60 RF: 5 acetaminophen 500 mg tablet 1,000 mg PO Q8H PRN (Reason: fever or pain) Qty: 60 RF: 0 (DME) Oxygen Home Liters Per Minute See Rx Instructions .ROUTE .MEDSUPPLY Qty: 1 RF: 0 folic acid 1 mg tablet 1 mg PO DAILY Qty: 30 RF: 5 Discontinued ibuprofen [Advil] 200 mg Tablet 400 mg PO Q6H PRN (Reason: fever/pain) RF: 0 Discharge Orders: Discharge Order (Routine); Ordered 06/08/20 Ordered By: Simon Gonzales Admission Data Admit Date/Time: 06/01/20 15:48 Attending Provider: Simon Gonzales Admit Provider: Arnol Forte Primary Care Provider: Jesus Katz Other Providers: Sherron Tim ; Arnol Forte ; Karl Avilez ; Guy Hawley Other Interventions: Discharge Summary Assessment (RN) Last Done: 06/08/20 12:22 DC Date/Time DO NOT enter until pt leaves facility: 06/08/20 13:01
--- NOTE | 2020-06-14 14:30 | Communication Note ---
Date of Service: June 14, 2020 MTHFR mutation results reported after discharge. Heterozygous for [id number] variant. Homocysteine level was 13.4. Patient notified and advised to: Continue folic acid. Discuss significance of MTHFR mutation with Hematology and consider having family members tested.
== END 2020-06-08 13:01 | disposition home or self-care (01) | DRG 176 ==
LOC: ED 12:33 → SUATTDRO 15:48 → 2S 15:48 → 1E 06-04 19:41 → 2S 06-06 08:18

== ENCOUNTER 2024-07-06 15:46 | Observation (INO) ==
--- NOTE | 2024-07-06 16:27 | Electrocardiogram Report ---
Test Reason : Blood Pressure : */* mmHG Vent. Rate : 47 BPM Atrial Rate : 47 BPM P-R Int : 126 ms QRS Dur : 88 ms QT Int : 454 ms P-R-T Axes : -15 -10 -19 degrees QTcB Int : 401 ms Sinus bradycardia T wave inversions concerning for ischemia Abnormal ECG When compared with ECG of 01-Sep-2020 18:40, Nonspecific T wave abnormality, worse in Inferior leads Nonspecific T wave abnormality now evident in Lateral leads Confirmed by Marciano Rodriguze ([id number]) on 07/06/2024 4:27:06 PM Referred By: Confirmed By: Marciano Rodriguez
[2024-07-06 16:47] LABS: Basophils # (auto) 0.03 K/uL (0.00-0.20); Basophils % (auto) 0.3 %; Eosinophils # (auto) 0.01 K/uL (0.00-0.50); Eosinophils % (auto) 0.1 %; Hematocrit (blood only) 44.7 % (42.0-52.0); Hemoglobin 15.6 g/dl (14.0-18.0); Immature Granulocytes # (auto) 0.07 K/uL (0.01-0.20); Immature Granulocytes % (auto) 0.6 %; Lymphocytes # (auto) 1.56 K/uL (1.20-3.40); Lymphocytes % (auto) 13.6 %; Mean Corpuscular Hemoglobin 29.8 pg (25.0-34.0); Mean Corpuscular Hgb Conc 34.9 g/dL (32.0-36.0); Mean Corpuscular Volume 85.5 fL (80.0-100.0); Mean Platelet Volume 10.6 fL (9.4-12.4); Monocytes # (auto) 0.28 K/uL (0.11-0.59); Monocytes % (auto) 2.4 %; Neutrophils # (auto) 9.48 K/uL (1.40-6.50); Platelet Count 287 K/uL (130-400); RDW Coefficient of Variation 12.4 % (11.5-14.5); RDW Standard Deviation 38.6 fL (36.4-46.3); Red Blood Count 5.23 M/uL (4.70-6.10); White Blood Count 11.43 K/ul (4.8-10.8)
[2024-07-06 16:53] LABS: Albumin Globulin Ratio 1.4 (0.9-2); Albumin Level 4.4 gm/dl (3.4-5.0); BUN Creatinine Ratio 19.3 (10-20); Bilirubin,Total 0.3 mg/dl (0.2-1.0); Calcium 9.5 mg/dl (8.6-10.3); Creatinine Clr Calc Pharmacy 81.4 ml/min; Est GFR (African American) 79.8 ml/min; Est GFR (Non-African American) 68.8 ml/min; Globulin 3.1 gm/dl (2.5-4.0); Potassium 4.5 mmol/L (3.5-5.1); Total Protein 7.5 gm/dl (6.0-8.3)
[2024-07-06 16:56] LABS: Troponin I High Sensitivity 8.2 pg/ml (0-20)
[2024-07-06 17:02] LABS: Partial Thromboplastin Time 26 Seconds (21-31); Prothrombin Time 10.4 Seconds (9.0-12.0)
--- NOTE | 2024-07-06 17:35 | XRay Report ---
XR chest 1V not portable HISTORY: Chest pain, nonspecific COMPARISON: Chest 06/04/2020. Chest CTA 09/01/2020. FINDINGS: No pneumothorax. No pleural effusions. The cardiac silhouette is top normal in size. No foc al lung consolidations to suggest a pneumonia. No evidence for pulmonary edema. No acute fractures id entified. Stable 1 cm focal density within the right upper lobe. This may represent scarring given th e long-term stability. IMPRESSION: 1. No acute process within the chest. 2. Stable 1 cm focal density within the right upper lobe. This favors scarring given the long-term st ability. ACT 112: Negative or not required by law. Electronically signed by: Arnel Pimentel M.D. 07/06/2024 5:34 PM
[2024-07-06 17:50] LABS: Appearance Urine Clear (Clear); Bilirubin Urine Negative (Negative); Blood Urine Negative (Negative); Color Urine Yellow; Glucose Urine UA Negative (Negative); Ketones Urine Negative (Negative); Leukocyte Esterase Urine Negative (Negative); Nitrite Urine Negative (Negative); Protein Urine Negative (Negative); Specific Gravity Urine 1.026 (1.000-1.030); Urobilinogen Urine Negative (Negative)
--- NOTE | 2024-07-06 18:15 | Emergency Department Note ---
Impression & Plan Abnormal ECG, History of cardiac cath, Dyslipidemia ED Provider Note NAME: PATRICK MATOS AGE: 53 SEX: M : 1970 ARRIVES VIA: Walk-In INFORMANT: Patient, ED PROVIDER(S): Erika Bey MD CHIEF COMPLAINT: Abnormal EKG HPI: This is a 53-year-old male presenting for abnormal EKG. Patient was being prescreened for hernia repair. He had an EKG that showed T wave inversions and was sent here by [facility] for further workup. Denies any current chest pain or changes. No current shortness of breath. ROS: See above HPI for pertinent positives & negatives. A total of 10 systems reviewed and were otherwise negative. PAST MEDICAL HISTORY: See Below PAST SURGICAL HISTORY: See Below FAMILY HISTORY: See Below SOCIAL HISTORY: See Below HOME MEDICATIONS: See Below ALLERGIES: See Below VITALS: See Below PHYSICAL EXAMINATION: General: resting comfortably in no acute distress Head: Normocephalic and atraumatic Eyes: Normal inspection, extraocular muscles intact Ear, nose, throat: Normal external exam Neck: Normal range of motion Respiratory: lungs clear to auscultation bilaterally Cardiovascular: Regular rate/rhythm, no murmur GI: soft, nontender, no guarding or rebound Extremities: nontender, moves all extremities Neuro: The patient awake and alert, appropriately conversive, no focal deficits, symmetric faces Skin: Warm, dry, and intact MEDICAL DECISION MAKING: This is a 53 male presenting for abnormal EKG. Patient was entered for ACS workup due to abnormal T wave inversions. patient is on apixaban her For previous DVT/PE. -ECG independently interpreted by me with sinus bradycardia rate of 47, normal axis, normal IL, normal QRS, normal QTc, no ST segment elevations consistent with STEMI criteria, T waves in the lateral leads concerning for ischemia -Bloodwork is reviewed showing no significant leukocytosis, anemia, electrolyte or creatinine abnormality -Discussed with [facility] service for admission. Differential diagnosis: ACS, PE ER treatment provided: See below Independent History obtained from: Diagnostics interpreted by me: ECG: See above Cardiac Monitoring: An order was placed for continuous cardiac monitoring. The monitor shows a rate of 50 with sinus bradycardia rhythm. Laboratory studies: As stated above and show below. Imaging studies: See below. Past Med/Surg History Problem List (Updated 07/06/24 @ 19:27 by Ashlee Alexandra PA-C) Obesity (BMI 30-39.9) Abnormal ECG Hernia, inguinal, right (Acute) Abdominal pain, lower (Acute) Bradycardia Dyspnea on exertion Dyspnea and respiratory abnormalities Pre-syncope Pre-procedural examination DVT (deep venous thrombosis) Pulmonary embolism Right ventricular dilation Nocturnal hypoxemia Headache Sleep apnea Pulmonary infarction Hyperhomocysteinemia COVID-19 ruled out Discharge planning issues DVT prophylaxis Acute saddle pulmonary embolism (Acute) Acute deep vein thrombosis (DVT) of right lower extremity (Acute) Elevated troponin I level (Acute) Elevated troponin Saddle pulmonary embolus Dyslipidemia History of cardiac cath Non-cardiac chest pain (Acute) Medical History Pneumonia Surgical History History of appendectomy Family History (Updated 07/06/24 @ 19:10 by Ashlee Alexandra PA-C) Brother Deep vein thrombosis Grandfather (Maternal) Diabetes Mother Coronary heart disease Social History Smoking Status: Former smoker Tobacco Type: Cigarettes Age Started Using Tobacco: 14; Age Quit Using Tobacco: 34; packs per day: 1; Hx Alcohol Use: No Hx Substance Use: No Preferred Language: Congolese Communication Ability: Effective [place] Required: No Beliefs That Will Affect Care: None marital status: Current Living Situation: Spouse Feels Safe at Home: Yes Assistive Devices: None Allergies Allergies Allergy/AdvReac Type Severity Reaction Status Date / Time morphine Allergy Intermediate CHEST Verified 10/08/22 16:02 TIGHTNESS Home Meds Previous Rx's Medication Instructions Recorded umeclidinium 62.5 mcg-vilanterol 1 inh inhalation DAILY 90 days #90 10/22/23 25 mcg/actuation powdr for puffs inhalation (Anoro Ellipta) albuterol sulfate 90 mcg/actuation 2 puff inhalation Q6H PRN 01/20/24 aerosol inhaler shortness of breath or wheezing #3 Inhalers apixaban 5 mg tablet (Eliquis) 5 mg PO BID #180 tabs 01/20/24 Results & Data (ED) Vital Signs Vital Signs - 24 hr 07/06/24 15:50 07/06/24 15:59 07/06/24 15:59 Temperature 36.5 C Temperature Source Temporal Artery Scan Pulse Rate 55 L 56 L Pulse Rate from SpO2 Sensor Pulse Rhythm Regular Respiratory Rate 16 18 Respiratory Effort / Characteristics Non-Labored Spontaneous Respiratory Depth Normal Respiratory Pattern Regular Blood Pressure 128/76 Blood Pressure Mean 93 Pulse Oximetry 94 97 97 Oxygen Delivery Method Room Air Room Air Room Air Sepsis Recent Fever Within 48 Hours No Sepsis New/Unexplained Change in Mental Status No Sepsis Action Taken by Nursing No Action Required 07/06/24 16:51 07/06/24 16:51 07/06/24 17:00 Temperature Temperature Source Pulse Rate 59 L 49 L 53 L Pulse Rate from SpO2 Sensor 50 L 51 L Pulse Rhythm Respiratory Rate 24 21 Respiratory Effort / Characteristics Respiratory Depth Respiratory Pattern Blood Pressure Blood Pressure Mean Pulse Oximetry 94 94 Oxygen Delivery Method Sepsis Recent Fever Within 48 Hours Sepsis New/Unexplained Change in Mental Status Sepsis Action Taken by Nursing 07/06/24 17:18 07/06/24 17:24 07/06/24 17:46 Temperature Temperature Source Pulse Rate 51 L 50 L Pulse Rate from SpO2 Sensor 50 L 51 L Pulse Rhythm Respiratory Rate 21 21 Respiratory Effort / Characteristics Respiratory Depth Respiratory Pattern Blood Pressure 128/76 125/76 Blood Pressure Mean 93 97 Pulse Oximetry 94 94 Oxygen Delivery Method Sepsis Recent Fever Within 48 Hours Sepsis New/Unexplained Change in Mental Status Sepsis Action Taken by Nursing 07/06/24 17:48 07/06/24 17:54 07/06/24 18:00 Temperature Temperature Source Pulse Rate 49 L 51 L Pulse Rate from SpO2 Sensor 50 L 54 L Pulse Rhythm Respiratory Rate 22 14 Respiratory Effort / Characteristics Respiratory Depth Respiratory Pattern Blood Pressure 130/80 Blood Pressure Mean 93 Pulse Oximetry 94 95 Oxygen Delivery Method Sepsis Recent Fever Within 48 Hours Sepsis New/Unexplained Change in Mental Status Sepsis Action Taken by Nursing 07/06/24 18:00 07/06/24 18:00 07/06/24 18:03 Temperature Temperature Source Pulse Rate 50 L Pulse Rate from SpO2 Sensor 50 L Pulse Rhythm Respiratory Rate 20 Respiratory Effort / Characteristics Respiratory Depth Respiratory Pattern Blood Pressure 130/80 130/80 Blood Pressure Mean 93 93 Pulse Oximetry 95 Oxygen Delivery Method Sepsis Recent Fever Within 48 Hours Sepsis New/Unexplained Change in Mental Status Sepsis Action Taken by Nursing 07/06/24 18:12 07/06/24 18:24 07/06/24 18:30 Temperature Temperature Source Pulse Rate 48 L 48 L Pulse Rate from SpO2 Sensor 48 L 48 L Pulse Rhythm Respiratory Rate 21 19 Respiratory Effort / Characteristics Respiratory Depth Respiratory Pattern Blood Pressure 135/81 Blood Pressure Mean 95 Pulse Oximetry 94 94 Oxygen Delivery Method Sepsis Recent Fever Within 48 Hours Sepsis New/Unexplained Change in Mental Status Sepsis Action Taken by Nursing 07/06/24 18:30 07/06/24 18:30 07/06/24 18:30 Temperature Temperature Source Pulse Rate 48 L Pulse Rate from SpO2 Sensor 50 L Pulse Rhythm Respiratory Rate 21 Respiratory Effort / Characteristics Respiratory Depth Respiratory Pattern Blood Pressure 135/81 135/81 Blood Pressure Mean 95 95 Pulse Oximetry 94 Oxygen Delivery Method Sepsis Recent Fever Within 48 Hours Sepsis New/Unexplained Change in Mental Status Sepsis Action Taken by Nursing 07/06/24 18:42 Temperature Temperature Source Pulse Rate 56 L Pulse Rate from SpO2 Sensor 57 L Pulse Rhythm Respiratory Rate 22 Respiratory Effort / Characteristics Respiratory Depth Respiratory Pattern Blood Pressure Blood Pressure Mean Pulse Oximetry 95 Oxygen Delivery Method Sepsis Recent Fever Within 48 Hours Sepsis New/Unexplained Change in Mental Status Sepsis Action Taken by Nursing Laboratory Data 07/06/24 16:13 07/06/24 16:13 Lab Results 07/06/24 07/06/24 Range/Units 16:13 Unknown WBC 11.43 H (4.8-10.8) K/ul RBC 5.23 (4.70-6.10) M/uL Hgb 15.6 (14.0-18.0) g/dl Hct 44.7 (42.0-52.0) % MCV 85.5 (80.0-100.0) fL MCH 29.8 (25.0-34.0) pg MCHC 34.9 (32.0-36.0) g/dL RDW Std Deviation 38.6 (36.4-46.3) fL RDW Coeff of [place] 12.4 (11.5-14.5) % Plt Count 287 (130-400) K/uL MPV 10.6 (9.4-12.4) fL Immature Gran % (Auto) 0.6 % Neut % (Auto) 83.0 % Lymph % (Auto) 13.6 % [place] % (Auto) 2.4 % Eos % (Auto) 0.1 % Baso % (Auto) 0.3 % Neut # (Auto) 9.48 H (1.40-6.50) K/uL Lymph # (Auto) 1.56 (1.20-3.40) K/uL [place] # (Auto) 0.28 (0.11-0.59) K/uL Eos # (Auto) 0.01 (0.00-0.50) K/uL Baso # (Auto) 0.03 (0.00-0.20) K/uL Immature Gran # (Auto) 0.07 (0.01-0.20) K/uL PT 10.4 (9.0-12.0) Seconds INR 1.0 (0.9-1.1) APTT 26 (21-31) Seconds PTT Ratio 1.0 Sodium 136 (136-145) mmol/L Potassium 4.5 (3.5-5.1) mmol/L Chloride 106 (98-107) mmol/L Carbon Dioxide 22 (21-32) mmol/L Anion Gap 8 (3-11) BUN 23 (6-23) mg/dl Creatinine 1.19 (0.6-1.4) mg/dl Est Cr Clr Drug Dosing 81.4 ml/min Est GFR ( Amer) 79.8 ml/min Est GFR (Non-Af Amer) 68.8 ml/min BUN/Creatinine Ratio 19.3 (10-20) Glucose 118 H (70-99(Fasting)) mg/dl Calcium 9.5 (8.6-10.3) mg/dl Total Bilirubin 0.3 (0.2-1.0) mg/dl AST 17 (13-39) U/L ALT 25 (7-52) U/L Alkaline Phosphatase 85 (34-104) U/L Troponin I High Sens 8.2 (0-20) pg/ml Total Protein 7.5 (6.0-8.3) gm/dl Albumin 4.4 (3.4-5.0) gm/dl Globulin 3.1 (2.5-4.0) gm/dl Albumin/Globulin Ratio 1.4 (0.9-2) Urine Color Yellow Urine Appearance Clear (Clear) Urine pH 5.0 (4.5-7.5) Ur Specific [place] 1.026 (1.000-1.030) Urine Protein Negative (Negative) Urine Glucose (UA) Negative (Negative) Urine Ketones Negative (Negative) Urine Blood Negative (Negative) Urine Nitrite Negative (Negative) Urine Bilirubin Negative (Negative) Urine Urobilinogen Negative (Negative) Ur Leukocyte Esterase Negative (Negative) Imaging Data Radiologist's Impression: Chest X-Ray 07/06/24 15:59 XR chest 1V not portable HISTORY: Chest pain, nonspecific COMPARISON: Chest 06/04/2020. Chest CTA 09/01/2020. FINDINGS: No pneumothorax. No pleural effusions. The cardiac silhouette is top normal in size. No focal lung consolidations to suggest a pneumonia. No evidence for pulmonary edema. No acute fractures identified. Stable 1 cm focal density within the right upper lobe. This may represent scarring given the long-term stability. IMPRESSION: 1. No acute process within the chest. 2. Stable 1 cm focal density within the right upper lobe. This favors scarring given the long-term stability. ACT 112: Negative or not required by law. Electronically signed by: Arnel Pimentel M.D. 07/06/2024 5:34 PM Discharge Plan Visit Data Chief Complaint: Abnormal Labs/Diagnostic Testing Stated Complaint: ABN EKG ED Provider: Erika Bey Discharge Problem: Abnormal ECG, History of cardiac cath, Dyslipidemia Forms Stand Alone Forms: [employer] Prescriptions Prescriptions: No Action Eliquis 5 mg tablet 5 mg PO BID Qty: 180 3RF albuterol sulfate 90 mcg/actuation HFA aerosol inhaler 2 puff inhalation Q6H PRN (Reason: shortness of breath or wheezing) Qty: 3 3RF Rx Instructions: Use 2 puffs 10 minutes before going out in cold air or prior to exercise Anoro Ellipta 62.5-25 mcg/actuation blister with device 1 inh inhalation DAILY 90 Days Qty: 90 3RF Referrals Referrals: PCP,NO [Physician] -
--- NOTE | 2024-07-06 19:16 | History & Physical Report ---
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 Pt scheduled for R inguinal hernia repair at end of month with Dr. Moss at [facility]. He presented for outpt pre op testing and ecg was concerning for ischemia so he was referred to ED. Pt with t wave inversions V4-V6 which is new compared to ecg 2019, trop negative, no c/o chest pain. Abnormal resting ecg, performed in the pre op setting admit to PCU cycle trops, obtain resting echo hold eliquis, last dose at 0930 on 07/06, will start IV heparin in event abnormal stress NPO after midnght for likely stress test in a.m. consult [facility] cards as he has seen them in the past Hx of cath in 2020 which showed nonobstructive CAD in the RCA will empirically start 81mg ASA for now fasting lipid panel, a1C in a.m Hx of SADDLE PE DVT RV Dilatation follows Dr. Avilez continue anticoagulation Hx of KENAN pt with reported weight loss, he does not wear a cpap device or mask Obesity BMI 38 encourage diet/lifestyle modifications DVT ppx: IV Heparin Dispo admit for cardiac work up FULL CODE PCP: Dr. Blake Pt was seen and examined in collaboration with DR. Lara, please see addendum A total of 61 minutes was spent coordinating, documenting, and providing care for this patient excluding time spent in the performance of separately billed services. This included personally viewing all current laboratories and imaging studies, medication reconciliation, outpatient chart review, and discussion with specialists. History of Present Illness Chief Complaint: Abnormal ECG referred to ED. 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 He is scheduled to have a right inguinal hernia repaired by Dr. Moss at the end of the month. He presented today for preoperative testing and ECG revealed new anterolateral T wave inversions. Patient reports chronic shortness of breath ever since his pulmonary embolism diagnoses. He also complains of intermittent chest twinges that have been off and on and only last seconds to minutes. It is substernal and nonradiating. Again these have been present since his pulmonary embolism. He does report IDAMOND on 1 flight of steps. He reports his steps seem to affect him more. Currently he is chest pain-free, denies fever, chills, sweats, lightheadedness, dizziness, nausea, vomit, abdominal pain, change in bowel or urinary habits. He denies any prior history of CAD. His mother does have a history of CAD as well as a pacemaker, but he is unsure of her age of onset. Allergies Allergy/AdvReac Type Severity Reaction Status Date / Time morphine Allergy Intermediate CHEST Verified 10/08/22 16:02 TIGHTNESS Home Medications Medication Instructions Recorded Confirmed Type umeclidinium 62.5 mcg-vilanterol 1 inh inhalation DAILY 90 days #90 10/22/23 07/06/24 Rx 25 mcg/actuation powdr for puffs inhalation (Anoro Ellipta) albuterol sulfate 90 mcg/actuation 2 puff inhalation Q6H PRN 01/20/24 07/06/24 Rx aerosol inhaler shortness of breath or wheezing #3 Inhalers apixaban 5 mg tablet (Eliquis) 5 mg PO BID #180 tabs 01/20/24 07/06/24 Rx Past Med/Surg History Problem List (Updated 07/06/24 @ 19:27 by Ashlee Alexandra PA-C) Obesity (BMI 30-39.9) Abnormal ECG Hernia, inguinal, right (Acute) Abdominal pain, lower (Acute) Bradycardia Dyspnea on exertion Dyspnea and respiratory abnormalities Pre-syncope Pre-procedural examination DVT (deep venous thrombosis) Pulmonary embolism Right ventricular dilation Nocturnal hypoxemia Headache Sleep apnea Pulmonary infarction Hyperhomocysteinemia COVID-19 ruled out Discharge planning issues DVT prophylaxis Acute saddle pulmonary embolism (Acute) Acute deep vein thrombosis (DVT) of right lower extremity (Acute) Elevated troponin I level (Acute) Elevated troponin Saddle pulmonary embolus Dyslipidemia History of cardiac cath Non-cardiac chest pain (Acute) Medical History Pneumonia Surgical History History of appendectomy Family History (Updated 07/06/24 @ 19:10 by Ashlee Alexandra PA-C) Brother Deep vein thrombosis Grandfather (Maternal) Diabetes Mother Coronary heart disease Social History Smoking Status: Former smoker Tobacco Type: Cigarettes Age Started Using Tobacco: 14; Age Quit Using Tobacco: 34; packs per day: 1; Hx Alcohol Use: No Hx Substance Use: No Preferred Language: German Communication Ability: Effective Senior Controls Analyst Required: No Beliefs That Will Affect Care: None marital status: Current Living Situation: Spouse Feels Safe at Home: Yes Assistive Devices: None Review of Systems Review of Systems: All systems reviewed & are unremarkable except as noted in HPI & below Physical Exam Physical Exam: please refer to Dr. Lara addendum for physical exam findings. Results & Data Results & Data Vital Signs (Past 12 Hours) Vital Signs Temp Pulse Resp BP Pulse Ox O2 Del Method 07/06/24 18:42 56 L 22 95 07/06/24 18:30 48 L 21 94 07/06/24 18:30 135/81 07/06/24 18:30 135/81 07/06/24 18:30 135/81 07/06/24 18:24 48 L 19 94 07/06/24 18:12 48 L 21 94 07/06/24 18:03 50 L 20 95 07/06/24 18:00 130/80 07/06/24 18:00 130/80 07/06/24 18:00 130/80 07/06/24 17:54 51 L 14 95 07/06/24 17:48 49 L 22 94 07/06/24 17:46 125/76 07/06/24 17:24 50 L 21 128/76 94 07/06/24 17:18 51 L 21 94 07/06/24 17:00 53 L 21 94 07/06/24 16:51 49 L 24 94 07/06/24 16:51 59 L 07/06/24 15:59 56 L 18 97 Room Air 07/06/24 15:59 97 Room Air 07/06/24 15:50 36.5 C 55 L 16 128/76 94 Room Air Diagnostic Findings Chest X-Ray 07/06/24 15:59 XR chest 1V not portable HISTORY: Chest pain, nonspecific COMPARISON: Chest 06/04/2020. Chest CTA 09/01/2020. FINDINGS: No pneumothorax. No pleural effusions. The cardiac silhouette is top normal in size. No focal lung consolidations to suggest a pneumonia. No evidence for pulmonary edema. No acute fractures identified. Stable 1 cm focal density within the right upper lobe. This may represent scarring given the long-term stability. IMPRESSION: 1. No acute process within the chest. 2. Stable 1 cm focal density within the right upper lobe. This favors scarring given the long-term stability. ACT 112: Negative or not required by law. Electronically signed by: Arnel Pimentel M.D. 07/06/2024 5:34 PM ECG Additional Comments: I have independently reviewed and interpreted patient's admitting EKG which revealed: sinus bradycardia, t wave inversions leaves V4-V6 COVID-19 Results Results COVID-19 Adm Lab Results: RBC 5.23 M/uL (4.70-6.10) 07/06/24 WBC 11.43 K/ul (4.8-10.8) H 07/06/24 Hgb 15.6 g/dl (14.0-18.0) 07/06/24 Hct 44.7 % (42.0-52.0) 07/06/24 Plt Count 287 K/uL (130-400) 07/06/24 Neutrophils (%) (Auto) 83.0 % 07/06/24 Lymphocytes (%) (Auto) 13.6 % 07/06/24 Monocytes # (Auto) 0.28 K/uL (0.11-0.59) 07/06/24 Eosinophils # (Auto) 0.01 K/uL (0.00-0.50) 07/06/24 Immature Granulocyte % (Auto) 0.6 % 07/06/24 Neutrophils # (Auto) 9.48 K/uL (1.40-6.50) H 07/06/24 Lymphocytes # (Auto) 1.56 K/uL (1.20-3.40) 07/06/24 Monocytes # (Auto) 0.28 K/uL (0.11-0.59) 07/06/24 Eosinophils # (Auto) 0.01 K/uL (0.00-0.50) 07/06/24 Basophils # (Auto) 0.03 K/uL (0.00-0.20) 07/06/24 Immature Granulocyte # (Auto) 0.07 K/uL (0.01-0.20) 4 Na 136 mmol/L (136-145) 07/06/24 K 4.5 mmol/L (3.5-5.1) 07/06/24 Cl 106 mmol/L (98-107) 07/06/24 CO2 22 mmol/L (21-32) 07/06/24 Anion Gap 8 (3-11) 07/06/24 BUN 23 mg/dl (6-23) 07/06/24 Creatinine 1.19 mg/dl (0.6-1.4) 07/06/24 BUN/Creatinine Ratio 19.3 (10-20) 07/06/24 Glucose Level 118 mg/dl (70-99(Fasting)) H 07/06/24 Ca 9.5 mg/dl (8.6-10.3) 07/06/24 Total Bilirubin 0.3 mg/dl (0.2-1.0) 07/06/24 AST/SGOT 17 U/L (13-39) 07/06/24 ALT/SGPT 25 U/L (7-52) 07/06/24 Alkaline Phosphatase 85 U/L (34-104) 07/06/24 Total Protein 7.5 gm/dl (6.0-8.3) 07/06/24 Albumin 4.4 gm/dl (3.4-5.0) 07/06/24 Globulin 3.1 gm/dl (2.5-4.0) 07/06/24 Albumin/Globulin Ratio 1.4 (0.9-2) 07/06/24 PTT 26 Seconds (21-31) 07/06/24 INR 1.0 (0.9-1.1) 07/06/24 Chest X-Ray 07/06/24 Code Status & VTE Plan Code Status FULL CODE VTE Prophylaxis Plan Reason for no VTE drug order: Treatment not tolerated Supervising Physician Co-Signing Physician Notes Patient is a 53-year-old male with history of PE/DVT on chronic anticoagulation with Eliquis, hyperhomocysteinemia, hyperlipidemia, chronic bradycardia and ot her medical problems presents for evaluation of an abnormal EKG. Patient was planned for an elective right inguinal hernia repair and his preop EKG showed inferolateral T wave inversions and on recommendations by his physician he was sent to ED for further evaluation. Patient states having chronic dyspnea on exertion but otherwise denies any chest pain, nausea, vomiting, dizziness. He admits to have transient palpitations 1 week ago. His last Eliquis dose was this morning at around 9:30 AM. Please review HPI for complete details of presentation. I personally reviewed blood work and imaging studies. Chest x- ray showed no acute process, noted chronic 1 cm focal density in the right upper lobe. Physical Exam: Vitals signs as noted above General Appearance:Moderately built and nourished, no apparent distress Head: normocephalic, Atraumatic Eyes: normal inspection, EOMI Neck: supple, Trachea midline Respiratory/Chest: Normal breath sounds, CTA, No accessory muscle use Cardiovascular: S1, S2, No murmur, bradycardia Abdomen/GI:Soft, Non tender, Bowel sounds present Extremities/Musculoskeletal:normal inspection, no edema Neurologic/Psych:AAOX3, grossly no focal neurological deficits Skin: normal color, warm Abnormal EKG: R/O ACS Chronic sinus bradycardia Mild leukocytosis Chronic right upper lobe density ? due to pulmonary infarct Agree with trending troponins, check resting echo, will consult final tester per patient's request N.p.o. after midnight Hold Eliquis, IV heparin for now Check lipid panel, A1c Avoid AV eric blocking agents Start on aspirin 81 mg for now I personally interviewed and examined at bedside. Patient's care is coordinated with Ashlee Alexandra PA-C. I have reviewed the advanced practitioner's documentation, and I agree with plan of care. Please refer to the documentation above for details of patient's presentation and for discussion of other issues. I spent a total [id number] coordinating, documenting, and providing care for this patient excluding time spent in the performance of separately billed services.
[2024-07-06] MEDS ORDERED: POLYETHYLENE (MIRALAX) 17 GM PACK PO PRN (21:28)
[2024-07-06] MEDS ORDERED: NITROGLYCERIN SL 0.4 MG/TAB TAB SL PRN (21:28)
[2024-07-06] MEDS ORDERED: FAMOTIDINE 20 MG TAB PO PRN (21:28)
[2024-07-06] MEDS ORDERED: ACETAMINOPHEN 325 MG TAB PO PRN (21:28)
[2024-07-06] MEDS ORDERED: MELATONIN 3 MG TAB PO PRN (21:28)
[2024-07-06] MEDS ORDERED: ONDANSETRON INJ 2 MG/ML 2 ML VIAL IV PRN (21:28)
[2024-07-06] MEDS ORDERED: Heparin IV Adult Wt-Based Standard *NO* INITIAL Bolus Protocol IV SCH (21:30)
[2024-07-06] MEDS: HEPARIN SODIUM/DEXTROSE 25,000 UNITS/500 ML BAG IV SCH (22:02)
--- OUTSIDE RECORDS SUMMARY | 2024-07-06 22:30 | External Medical Summary | Summary of Care ---
Author Name Unknown Organization [facility] Address [address] [place] [address] Phone [phone] Care Team Providers Care Honeycomb Blanket Maker Name Role Phone Unavailable Primary Care Provider Unavailabl e Reason for Visit * Reason Comments NEW PATIENT rightinguinal hernia * Evaluate & Treat - Unlimited Visits (Within 10 days (routine)) - Pending Review Specialty Diagnoses / Procedures Referred By Tommie govea Referred To Contact General Surgery Diagnoses Non-recurrent unilateral inguinal hernia without obstruction or gangrene Lorena Whittington PA-C [address] [place] [address] [place] [address] Referral ID Status Reason Start Date Expiration Date Visits Requested Visits Authorized [id number] Pending Review Specialty Services Required 07/04/[phone] Encounter Details Date Type Department Care Team (Late st Contact Info) Description 07/05/2024 10:15 AM EDT Office Visit General Surgery, [facility] [address] [facility] [place] [address] Yon Moss MD [address] [facility] [place] [address] Pre-op examination*; Right inguinal hernia Allergies Active Allergy Reactions Criticality Noted Date Comments Morphine Sulfate Other (Please comment) Medium 010 Chest tightness documented as of this encounter (statuses as of 07/05/2024) Medications Medication Sig Dispensed Refills Start Date End Date Status apixaban (ELIQUIS) 5 MG Tablet Take 1 Tablet by mouth in the morning and 1 Tablet before bedtime. hosp d/c. Active Acetaminophen 500 MG Capsule Take 2 Capsules by mouth every 8 hours as needed. hosp d/c Active Vitamin D3 25 MCG (1000 UT) Oral Capsule Take by mouth daily. Active Atorvastatin Calcium 10 MG Oral Tablet (Lipitor)Indication s:Coronary artery disease involving [place] coronary artery of [place] heart without angina pectoris TAKE 1 TABLET BY MOUTH EVERY DAY 90 Tablet 1 05/20/2022 Active Anoro Ellipta 62.5-25 MCG/ACT Inhalation Aerosol Powder Breath Activated (umeclidinium-vilan terol) Inhale 1 Puff by mouth daily. 30 Each 11 05/24/2024 Active predniSONE 20 MG Oral Tablet (Deltasone)Indicati ons:Sore throat (viral) Take 2 Tablets by mouth in the morning for 5 days. 10 Tablet 07/04/2024 07/09/2024 Active documented as of this encounter (statuses as of 07/05/2024) Active Problems Problem Noted Date Diagnosed Date Right inguinal hernia 07/05/2024 Prediabetes 06/09/2021 Overview: Per Prediabetes protocol History of DVT (deep vein thrombosis) 05/29/2021 History of pulmonary embolus (PE) 05/29/2021 Overview: Saddle Coronary artery disease invo lving [place] coronary artery of [place] heart without angina pectoris 05/29/2021 KENAN (obstructive sleep apnea) 05/29/2021 REM sleep behavior disorder 09/17/2020 Nocturnal hypoxemia 09/17/2020 Overview: 170 minutes below 89%, REM related 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 06/01/2020 Mixed dyslipidemia 02/11/2011 Disc disorder of lumbar region 03/11/2007 Spinal stenosis of lumbar re gion without neurogenic claudication 03/11/2007 BMI 34.0-34.9,adult documented as of this encounter (statuses as of 07/05/2024) Resolved Problems Problem Noted Date Diagnosed Date Resolved Date Leg DVT (deep venous thrombo embolism), acute, right 06/01/2020 12/05/2020 Overview: [facility] Obesity, Class I, BMI 30.0-3 4.9 (see actual BMI) 02/11/2011 05/18/2014 Tobacco use disorder 08/03/2003 011 Gastritis 04/14/2018 documented as of this encounter (statuses as of 07/05/2024) Immunizations Name Administration Dates Next Due HEP A - Hepatitis A (Adult > 18 yrs) 09/09/2018 Hepatitis B, 20+ yrs 09/09/2018 Seasonal Influenza, Trivalen t, (IIV3), with Preserv, (Fluzone) 08/01/2011 TDAP (age 10 and older)(Boostrix) 12/05/2020 TDAP, Age 7 and older, IM (Adacel) 03/05/2010, Zoster Vaccine Recombinant (Shingrix) 06/13/2020 ,12/04/2019 documented as of this encounter Social History Tobacco Use Types Packs/Day Years Used Date Smoking Tobacco: Former Cigarettes 0.5 25 1 - 08/01/2010 Smokeless Tobacco: Former Snuff Alcohol Use Standard Drinks/Week Comments No 0 (1 standard drink = 0.6 oz pur e alcohol) rare PHQ-2 Answer Date Recorded PHQ-2 Score 0 09/02/2020 Utilities Answer Date Recorded Do you have trouble paying y our heating, water, or electric bill? (Adult - for ages 18 years and over) Not on file 04/18/2024 Is your family able to pay t he heat, water, or electric bill? (Household - for ages 0-17 years) Not on file 04/18/2024 Does your family have access to good internet? (Household - for ages 0-17 years) Not on file 04/18/2024 Social Connections Answer Date Recorded How often do you feel lonely or isolated from those around you? (Adult - for ages 18 years and over) Not on file 04/18/2024 Sex and Gender Information Value Date Recorded Sex Assigned at Not on file Gender Identity Not on file Sexual Orientation Not on file Job Start Date Occupation Industry Not on file Not on file Not on file documented as of this encounter Progress Notes * Yon Moss MD - 07/05/2024 11:25 AM EDT CC- Chief Complaint Patient presents with NEW PATIENT rightinguinal hernia REF: KOPTCHAK, LORENA[address] [place] [address] (office) [phone] (fax) HPI.: Yon Galeana is a 53 year old male seen in consultation for a right inguinal hernia. Symptoms have been present for a few weeks duration. Pain is sharp, intermittent, and radiating to groin. He was seen in the emergency department underwent CT scan due to pain. This demonstrated the hernia. Lump is reducible. He has no Sxs of chronic constipation,chronic cough,difficulty urinating. Past Medical History Past Medical History: Diagnosis Date Acute appendicitis 08/23/2014 [place], [place] BMI 31.0-31.9,adult Gastritis History of tobacco use Leg DVT (deep venous thromboembolism), acute, right (HCC) 06/01/2020 [facility] Nocturnal hypoxemia 09/17/2020 170 minutes below 89%, REM related Nonallopathic lesion of sacral region, not elsewhere classified 12/03/2014 Dr Brooks Other and unspecified disc disorder of lumbar region Pulmonary embolism ([facility]) 06/01/2020 saddle embolus involving both arteries REM sleep behavior disorder 09/17/2020 Spinal stenosis, lumbar region, without neurogenic claudication Past Surgical History Past Surgical History: Procedure Laterality Date ABD/PELVIS CT W/ + W/O IV AND W/PO CONTRAST 08/22/2014 possible occlusion/thrombus of posterior portal venous branch,, appendix markedly dilated, fluid filled, with inflammatory changes ,atelectasis vs pneumonia ABD/PELVIS CT W/O IV AND W/O PO CONTRAST 02/03/2010 normal, [facility] CARDIAC CATH SCANNED RESULT N/A 12/09/2020 60-70% mid RCA disease, 40% proximal RCA COLONOSCOPY, DIAGNOSTIC (RECTUM) N/A 08/29/2021 diverticulosis sigmoid colon/recall 10 years/COLONOSCOPY FLEXIBLE PROXIMAL DIAGNOSTIC performed by Whit Cisneros DO at ENDOSCOPY [facility] CTA CHEST NON-CORONARY W CONTRAST 06/01/2020 saddle embolus involving both pulmonary arteries and RV strain EGD, FLEXIBLE, DIAGNOSTIC 11/10/2013 ESOPHAGOGASTRODUODENOSCOPY (EGD), FLEXIBLE, TRANSORAL, DIAGNOSTIC performed by Whit Cisneros DO at ENDOSCOPY [facility] LAPAROSCOPY;APPENDECTOMY 08/23/2014 [facility] retrocecal POLYSOMNOGRAPHY, 1-3 PARAMETERS N/A 09/17/2020 REM AHI 9.4, 170 min with O2 below 89%, REM related sleep disorder with nocturnal hypoxemia, CPAP recommended Medications: Current Outpatient Medications Medication Sig Dispense Refill apixaban (ELIQUIS) 5 MG Tablet Take 1 Tablet by mouth in the morning and 1 Tablet before bedtime. hosp d/c. Acetaminophen 500 MG Capsule Take 2 Capsules by mouth every 8 hours as needed. hosp d/c Vitamin D3 25 MCG (1000 UT) Oral Capsule Take by mouth daily. Atorvastatin Calcium 10 MG Oral Tablet (Lipitor) TAKE 1 TABLET BY MOUTH EVERY DAY 90 Tablet 1 Anoro Ellipta 62.5-25 MCG/ACT Inhalation Aerosol Powder Breath Activated (umeclidinium-vilanterol) Inhale 1 Puff by mouth daily. 30 Each 11 predniSONE 20 MG Oral Tablet (Deltasone) Take 2 Tablets by mouth in the morning for 5 days. 10 Tablet 0 No current facility-administered medications for this visit. Allergies: Allergies as of 07/05/2024 - Reviewed 07/05/2024 Allergen Reaction Noted Morphine sulfate Other (Please comment) 02/06/2010 Family History Family History Problem Relation Name Age of Onset No Past Hx Mother Clotting disorder Father Clotting disorder Brother No Past Hx Son Glaucoma Grandmother (Maternal) Diabetes Grandfather (Maternal) Social History Social History Socioeconomic History Marital status: Spouse name: Not on file Number of children: Not on file Years of education: Not on file Highest education level: Not on file Occupational History Not on file Tobacco Use Smoking status: Former Current packs/day: 0.00 Average packs/day: 0.5 packs/day for 25.0 years (12.5 ttl pk-yrs) Types: Cigarettes Start date: 1985 Quit date: 08/01/2010 Years since quittin.9 Smokeless tobacco: Former Types: Snuff Substance and Sexual Activity Alcohol use: No Comment: rare Drug use: No Sexual activity: Yes Partners: Female Other Topics Concern Not on file Social History Narrative Not on file Social Determinants of Health Financial Resource Strain: Not on file Food Insecurity: Not on file Transportation Needs: Not on file Social Connections: Unknown (04/18/2024) Social Connections How often do you feel lonely or isolated from those around you? (Adult - for ages 18 years and over): Not on file Housing Stability: Not on file ROS: GEN: no weight loss, fever, fatigue HEENT: no changes in vision or hearing, no sinus problems, no sore throat, no hoarseness RESPIRATORY: no cough, wheezing, SOB or change in breathing CARDIOVASCULAR: no exertional chest pain, dyspnea, palpitations GI: no melena or hemetemesis, no change in bowel habits, no nausea or vomiting : no dysuria, hematuria, frequency MUSCULOSKELETAL: no change in joint pains, no new arthritis PSYCHIATRIC: no significant anxiety or depression, unchanged sleep pattern HEME: no bleeding tendency, no clotting tendency NEURO: no significant headache, no seizures , no tremors SKIN: no new rashes, no itching Physical Exam: There were no vitals taken for this visit. Constitutional: alert, healthy, well nourished Head: normocephalic, atraumatic Eyes: conjunctiva non-injected, sclera white Neck: supple, no adenopathy Lungs: clear to auscultation, breath sounds are equal and symmetric Heart: regular rate & rhythm and no murmur, gallops or rubs Abdomen: soft, non-tender, + hernia (inguinal, right, reducible, tender) Back: normal curvature, normal ROM, no CVA tenderness Extremities: no edema, no skin discoloration Skin: no obvious rashes or significant lesions Imaging: CT imaging reviewed personally IMP: Yon Galeana is a 53 year old male with a right inguinal hernia which is currently symptomatic. For this reason, I have recommended that the patient consider a hernia repair. This could be performed in open or laparascopic approach. We discussed proceeding with a laparoscopic approach. I discussed the surgery in detail and the complications related to the surgery and the anesthesia. Risks include, but are not limited to: recurrence of the hernia, persistent pain in the groin from injury to the ilioinguinal nerve, numbness, seroma formation, bleeding, infection and mesh infection requiring mesh removal. Patient understands these risks. Expected same day nature of surgery and postoperative recovery period reviewed. Activity restrictions postoperatively to include no heavy lifting or high impact activity for four to six weeks reviewed. All questions were answered to the patient's satisfaction and consent was signed. We also reviewed the signs and symptoms of incarceration and the patient was instructed to go directly to the emergency room should this occur. He is on Eliquis and will need to be off the Eliquis for 5 days prior to surgery. Yon Moss MD 07/05/2024 11:25 AM documented in this encounter Nursing Notes * Liane Tran LPN - 07/05/2024 11:09 AM EDT [facility] Inguinal Hernia Pre-op Education Patient was seen in clinic 07/05/2024 for [facility] Inguinal Hernia preoperative education. Patient was provided with the [facility] bag with supplies needed for preoperative preparation for surgery and educated per instructions on sheet. Patient was instructed to begin preparation on 07/05/2024. The following was provided to the patient: Patient Instruction Sheet HELP Card Chlorhexidine Soap Preventing Adverse Events During Surgery Pamphlet Help Prevent Skin Infections After Surgery Patient Education Included: Boost Breeze: Patient should drink at 10:00 pm the evening before surgery and 3 hours before arrival time to the hospital on the day of their surgery. Patient has been instructed not to eat or drink anything other than Boost Breeze after midnight thenight before surgery. Antibacterial soap or wipes: Provided and instructed to use evening prior and morning of surgery. The leave the soap on skin for 2 minutes and to not apply any lotions, creams, powders or deodorant after showering. Reviewed deep breathing and coughing exercises. Smoking cessation education not applicable. . Preop testing reviewed with patient by provider (see screening labs and procedures ordered prior tosurgery). Ambulation requirements prior to surgery: Encouraged to walk twice a day for at least 10 minutes. Postoperative activity restrictions: No lifting, pushing or pulling greater than 10 pounds for minimum of 6 weeks post-op. Discharge Needs Assessment: Not applicable. Patient has been or will be instructed by the preadmisison testing nurse on which medications should be held prior to surgery. [facility] written instructions were provided to patient along with contact information for nurse and clinic. Patient encouraged to contact nurse with any questions or concerns. Patient verbalized understanding. * Liane Tran LPN - 07/05/2024 11:07 AM EDT Chief Complaint Patient presents with NEW PATIENT rightinguinal hernia Patient has pain of a four. documented in this encounter Plan of Treatment Upcoming Encounters Date Type Department Care Team (Late st Contact Info) Description 07/06/2024 3:00 PM EDT Nurse Only Ancillary [address] [place] [address] [place], Nurse [address] [place] [address] 07/25/2024 Hospital Encounter OR [facility], Operating Room [facility] [address] [place] [id number] Yon Moss MD [address] [place] [address] 08/09/2024 2:00 PM EDT Office Visit General Surgery, [facility] [address] [place] [address] Yon Moss MD [address] [place] [address] 06/08/2025 10:00 AM EDT Office Visit Family Medicine [address] [place] [phone] Carmen Blake MD [address] [place] [address] [place] [address] Scheduled Orders Name Type Priority Associated Diagnoses Orde r Schedule EKG EKG Routine Pre-op examination Expected: 07/05/2024 (Approximate), Expi res: 08/04/2025 CBC Lab Routine Pre-op examination Expected: 07/05/2024, Expires: Scheduled Procedures Name Priority Associated Diagnoses Date/Ti me LAPAROSCOPIC REPAIR INGUINAL HERNIA INITIAL Right inguinal hernia COLONOSCOPY FLEXIBLE PROXIMA L DIAGNOSTIC Recall Screening for colon cancer Health Maintenance Due Date Last Done Comments HIV Screening 1984 Hepatitis C Screening 1987 Cologuard 2014 Fecal Occult Blood Test 2014 Sigmoidoscopy 2014 Hepatitis B Vaccine (2 of 3 - 19+ 3-dose series) 10/07/2018 09/09/2018 Depression Screening 09/02/2021 09/02/2020 COVID-19 Vaccine (1 - 3-2 4 season) 2024 Influenza Vaccine (FLU shot) (#1) 2024 08/01/2011 HbA1c 05/24/2025 05/24/2024, 05/29/2021 DTap/Tdap Vaccines (4 - Td o r Tdap) 12/05/2030 12/05/2020, 03/05/2010, 01/31/2004 Colonoscopy 08/29/2031 08/29/2021, 08/29/2021 Colorectal Cancer Screening 08/29/2031 Zoster Vaccines Completed 06/13/2020, 12/04/2019 HPV (Gardasil) Vaccine Aged Out No lo nger eligible based on patient's age to complete this topic MENINGOCOCCAL (MENACTRA/MENVEO) Aged Out No longer eligible b ased on patient's age to complete this topic Pneumococcal Vaccine: Pediatrics (0 to 5 Years) and At-Risk Patients (6 to 64 Years) Aged Out No longer eligible b ased on patient's age to complete this topic documented as of this encounter Medical Devices Not on filedocumented as of this encounter Visit Diagnoses Diagnosis Pre-op examination- Primary Preoperative examination, unspecified Right inguinal hernia Inguinal hernia without mention of obstruction or gangrene, unilateral or unspecified, (not specified as recurrent) Right inguinal hernia- Primary Inguinal hernia without mention of obstruction or gangrene, unilateral or unspecified, (not specified as recurrent) documented in this encounter
--- OUTSIDE RECORDS SUMMARY | 2024-07-06 22:31 | External Medical Summary | Summary of Care ---
Author Name Unknown Organization [facility] Address [address] [place] [address] Phone [phone] Care Team Providers Care Manager Procurement Name Role Phone Unavailable Primary Care Provider Unavailabl e Reason for Visit * Reason Comments NEW PATIENT rightinguinal hernia * Evaluate & Treat - Unlimited Visits (Within 10 days (routine)) - Pending Review Specialty Diagnoses / Procedures Referred By Tommie govea Referred To Contact General Surgery Diagnoses Non-recurrent unilateral inguinal hernia without obstruction or gangrene Lorena Whittington PA-C [address] [place] [address] [place] [address] Referral ID Status Reason Start Date Expiration Date Visits Requested Visits Authorized [id number] Pending Review Specialty Services Required 07/04/[phone] Encounter Details Date Type Department Care Team (Late st Contact Info) Description 07/05/2024 10:15 AM EDT Office Visit General Surgery, [facility] [address] [facility] [place] [address] Yon Moss MD [address] [facility] [place] [address] Pre-op examination*; Right inguinal hernia Allergies Active [...] Oral Tablet (Lipitor)Indication s:Coronary artery disease involving nikolai coronary artery of nikolai heart without angina pectoris TAKE 1 TABLET [...] Overview: Saddle Coronary artery disease invo lving nikolai coronary artery of nikolai heart without angina pectoris 05/29/2021 KENAN (obstructive [...] thrombo embolism), acute, right 06/01/2020 12/05/2020 Overview: [facility] Obesity, Class I, BMI 30.0-3 4.9 (see [...] with NEW PATIENT rightinguinal hernia REF: KOPTCHAK, LORENA[address] [place] [address] (office) [phone] (fax) HPI.: Yon Galeana is a 53 [...] Medical History: Diagnosis Date Acute appendicitis 08/23/2014 [place], [place] BMI 31.0-31.9,adult Gastritis History of tobacco use Leg DVT (deep venous thromboembolism), acute, right (HCC) 06/01/2020 [facility] Nocturnal hypoxemia 09/17/2020 170 minutes below 89%, REM related Nonallopathic lesion of sacral region, not elsewhere classified 12/03/2014 Dr Brooks Other and unspecified disc disorder of lumbar region Pulmonary embolism ([facility]) 06/01/2020 saddle embolus involving both arteries REM [...] IV AND W/O PO CONTRAST 02/03/2010 normal, [facility] CARDIAC CATH SCANNED RESULT N/A 12/09/2020 60-70% mid RCA disease, 40% proximal RCA COLONOSCOPY, DIAGNOSTIC (RECTUM) N/A 08/29/2021 diverticulosis sigmoid colon/recall 10 years/COLONOSCOPY FLEXIBLE PROXIMAL DIAGNOSTIC performed by Whit Cisneros DO at ENDOSCOPY [facility] CTA CHEST NON-CORONARY W CONTRAST 06/01/2020 saddle embolus involving both pulmonary arteries and RV strain EGD, FLEXIBLE, DIAGNOSTIC 11/10/2013 ESOPHAGOGASTRODUODENOSCOPY (EGD), FLEXIBLE, TRANSORAL, DIAGNOSTIC performed by Whit Cisneros DO at ENDOSCOPY [facility] LAPAROSCOPY;APPENDECTOMY 08/23/2014 [facility] retrocecal POLYSOMNOGRAPHY, 1-3 PARAMETERS N/A 09/17/2020 REM [...] 07/06/2024 3:00 PM EDT Nurse Only Ancillary [address] [place] [address] [place], Nurse [address] [place] [address] 08/09/2024 2:00 PM EDT Office Visit General Surgery, [facility] [address] [place] [address] Yon Moss MD [address] [place] [address] 06/08/2025 10:00 AM EDT Office Visit Family Medicine [address] [place] [phone] Carmen Blake MD [address] [place] [address] [place] [address] Scheduled Orders Name Type Priority Associated Diagnoses [...] 09/09/2018 Depression Screening 09/02/2021 09/02/2020 COVID-19 Vaccine (2022-2 4 season) 2024 Influenza Vaccine (FLU shot) [...]
--- OUTSIDE RECORDS SUMMARY | 2024-07-06 22:31 | External Medical Summary ---
Author Name Unknown Address Unknown Organization K01:[facility] [place] [address] [facility] [address] Laboratory Report Ordering Provider Test Date Status JACE CARRILLO 07/04/2024 11:33:12 Final Observation Date Value Abnormality Reference (Units) Status Streptococcus pyogenes DNA [Presence] in Throat by MEGHANA with probe detection 07/04/2024 11:33:12 Negative. No Group A Streptococcus detected by PCR (amplified probe). Negative Final This test was developed and its performance characteristics determined by [facility]. It has not been cleared or approved by the FDA. The laboratory is regulated under CLIA as qualified to perform high- complexity testing. This test is used for clinical purposes. It should not be regarded as investigational or for research. Performing Location [facility] [address] [facility] [address]
--- OUTSIDE RECORDS SUMMARY | 2024-07-06 22:31 | External Medical Summary ---
Author Name Unknown Address Unknown Organization [id number]:[facility] [place] [address] [facility] [address] Laboratory Report Ordering Provider Test Date Status JACE CARRILLO 07/04/2024 11:36:46 Final Observation Date Value Abnormality Reference (Units ) Status SARS Coronavirus 2 07/04/2024 11:36:46 Negative N egative Final No SARS-CoV2 Coronavirus RNA detected by PCR (amplified probe).
This express test was developed and its performance characteristics determined by [facility]. It has not been cleared or approved by the U.S. Food and Drug Administration (FDA). FDA does not require this test to go thru premarket FDA review. This test is used for clinical purposes. It should not be regarded as investigational or for research. This laboratory is certified under the Clinical Laboratory Improvement Amendments (CLIA) as qualified to perform high complexity clinical laboratory testing.

This test is a nucleic acid amplification test (NAAT), a reverse transcriptase polymerase chain reaction (RT-PCR) test, or a Centers for Disease Control-acceptable equivalent. The test is performed in a high complexity Clinical Laboratory Improvement Amendments-(CLIA) certified laboratory. The test is acceptable for SARS-CoV-2 diagnosis, surveillance, and travel within the [place] and to most countries. Please check with local testing authorities about requirements before travel.

The validation of bronchial specimens, tracheal aspirates, and sputum for this assay was developed and performance characteristics determined by [facility]. The validation of alternate specimen types has not been cleared or approved by the U.S. Food and Drug Administration (FDA). It has been determined that such clearance is not necessary. Influenza virus A RNA [Prese nce] in Specimen by MEGHANA with probe detection 07/04/2024 11:36:46 Negative Negative Final No Influenza A RNA detected by PCR (amplified probe) Influenza virus B RNA [Prese nce] in Specimen by MEGHANA with probe detection 07/04/2024 11:36:46 Negative Negative Final No Influenza B RNA detected by PCR (amplified probe) Respiratory syncytial virus RNA [Identifier] in Specimen by MEGHANA with probe detection 07/04/2024 11:36:46 Negative Negative Final No Respiratory Syncytial Vir us RNA detected by PCR (amplified probe) Performing Location LABORATORY [place] [address] [facility] [address]
--- OUTSIDE RECORDS SUMMARY | 2024-07-06 22:31 | External Medical Summary | Summary of Care ---
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 Name Role Phone Unavailable Primary Care Provider Unavailabl e Reason for Referral * Evaluate & Treat - Unlimited Visits (Within 10 days (routine)) - Pending Review Specialty Diagnoses / Procedures Referred By Tommie govea Referred To Contact General Surgery Diagnoses Non-recurrent unilateral inguinal hernia without obstruction or gangrene Catherine Whittington PA-C [address] [place] [address] [place] [id number] Referral ID Status Reason Start Date Expiration Date Visits Requested Visits Authorized [id number] Pending Review Specialty Services Required 07/04/[phone] Question Answer Referral Priority Within 10 days (routine) Where should this appointment be scheduled? [facility] What condition is the patient being seen for? General Surgery Conditions What condition is the patient being seen for? Hernia (excluding Hiatal) Comments Right inguinal hernia Reason for Visit * Reason Comments Emergency Department Follow-Up Encounter Details Date Type Department Care Team (Late st Contact Info) Description 07/04/2024 11:40 AM EDT Office Visit Family Medicine [address] [place] [phone] Catherine Whittington PA-C [address] [place] [address] [place] [address] Sore throat (viral)*; Non-recurrent unilateral inguinal hernia without obstruction or gangrene; Viral URI Allergies Active Allergy Reactions Criticality Noted Date Comments Morphine Sulfate Other (Please comment) Medium 010 Chest tightness documented as of this encounter (statuses as of 07/04/2024) Medications Medication Sig Dispensed Refills Start Date [...] Oral Tablet (Lipitor)Indication s:Coronary artery disease involving [place] coronary artery of pa[place] heart without angina pectoris TAKE 1 TABLET [...] as of this encounter (statuses as of 07/04/2024) Active Problems Problem Noted Date Diagnosed Date Prediabetes 06/09/2021 Overview: Per Prediabetes protocol History of DVT (deep vein thrombosis) 05/29/2021 History of pulmonary embolus (PE) 05/29/2021 Overview: Saddle Coronary artery disease invo lving pa[place] coronary artery of [place] heart without angina pectoris 05/29/2021 KENAN (obstructive sleep apnea) 05/29/2021 REM sleep behavior disorder 09/17/2020 Nocturnal hypoxemia 09/17/2020 Overview: 170 minutes below 89%, REM related 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 06/01/2020 Mixed dyslipidemia 02/11/2011 Disc disorder of lumbar region 03/11/2007 Spinal stenosis of lumbar re gion without neurogenic claudication 03/11/2007 BMI 34.0-34.9,adult documented as of this encounter (statuses as of 07/04/2024) Resolved Problems Problem Noted Date Diagnosed Date Resolved Date Leg DVT (deep venous thrombo embolism), acute, right 06/01/2020 12/05/2020 Overview: [facility] Obesity, Class I, BMI 30.0-3 4.9 (see actual BMI) 02/11/2011 05/18/2014 Tobacco use disorder 08/03/2003 011 Gastritis 04/14/2018 documented as of this encounter (statuses as of 07/04/2024) Immunizations Name Administration Dates Next Due HEP [...] on file documented as of this encounter Last Filed Vital Signs Vital Sign Reading Time Taken Comments Blood Pressure 118/76 07/04/2024 11:22 AM EDT Pulse 66 07/04/2024 11:22 AM EDT Temperature 36.1 C (97 F) 07/04/2024 11:22 AM EDT Respiratory Rate - - Oxygen Saturation 95% 07/04/2024 11:22 AM EDT Inhaled Oxygen Concentration - - Weight 106.6 kg (235 lb) 07/04/2024 11:22 AM EDT Height - - Body Mass Index 35.73 05/24/2024 10:06 AM EDT documented in this encounter Progress Notes * Catherine Whittington PA-C - 07/04/2024 11:24 AM EDT Nursing Notes: Ashlee Pacheco LPN 07/04/24 1122 Sign at exiting of workspace [facility] ER Hernia on right side Now "just not feeling good" Severe sore throat, can't swallow Sluggish Started yesterday Pt here today with sore throat, fatigue since yesterday. Pt also with cough, chest congestion, ear pain, nasal/head congestion. Pt denies fever. Pt has not been around anyone who has been sick. Pt also here for ER FU. Pt was told that he has a hernia. He doesn't know where. They found it on CT scan? Its on the right side. Pain is at groin. They didn't set him up tiwth surg. They told him tosee PCP. Review of patient's allergies indicates: Allergen Reactions Morphine Sulfate Other (Please comment) Chest tightness Current Outpatient Medications Medication Sig Dispense Refill [...] Puff by mouth daily. 30 Each 11 No current facility-administered medications for this visit. Past Medical History: Diagnosis Date Acute appendicitis 08/23/2014 [place], [place] BMI 31.0-31.9,adult Gastritis History of tobacco use Leg DVT (deep venous thromboembolism), acute, right (HCC) 06/01/2020 [facility] Nocturnal hypoxemia 09/17/2020 170 minutes below 89%, REM related Nonallopathic lesion of sacral region, not elsewhere classified 12/03/2014 Dr Brooks Other and unspecified disc disorder of lumbar region Pulmonary embolism ([facility]) 06/01/2020 saddle embolus involving both arteries REM sleep behavior disorder 09/17/2020 Spinal stenosis, lumbar region, without neurogenic claudication Social History Socioeconomic History Marital status: Spouse [...] on file Housing Stability: Not on file O:Blood pressure 118/76, pulse 66, temperature 36.1 C (97 F), temperature source Tympanic, weight 106.6 kg (235 lb), SpO2 95%. GENERAL: alert and no distress NECK: supple, no adenopathy EYES: conjunctiva are pink and non-injected, sclera clear EARS: External ears normal, Canals clear, TM's Normal NOSE: no mucosal erythema, no mucosal edema, no purulent discharge OROPHARYNX: no exudate, no erythema, lips, buccal mucosa, and tongue normal, and mucous membranes are moist HEART: regular rate & rhythm, no murmur, and no gallops LUNGS: chest symmetric with normal AP diameter, no chest deformities noted, no chest wall tenderness, lungs clear to auscultation A:Sore throat (viral) (Primary) - GROUP A STREP PCR Non-recurrent unilateral inguinal hernia without obstruction or gangrene - SURGERY REFERRAL OP Viral URI - INFLUENZA A/B RSV SARS-COV2,PCR; Future; Expected date: 07/04/2024 - INFLUENZA A/B RSV SARS-COV2,PCR Rapid strep neg. Will send for culture. 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 Rest, fluids. Any questions/problems, please call. If anything changes, worsens, develops new sx, please call [facility]. Will refer to surg. Follow Up: Return if symptoms worsen or fail to improve. Catherine Whittington PA-C documented in this encounter Nursing Notes * Ashlee Pacheco LPN - 07/04/2024 11:22 AM EDT [facility] ER Hernia on right side Now "just not feeling good" Severe sore throat, can't swallow Sluggish Started yesterday documented in this encounter Plan of Treatment Upcoming Encounters Date Type Department Care Team (Late st Contact Info) Description 07/05/2024 10:15 AM EDT Office Visit General Surgery, [facility] [address] [address] Yon Moss MD [address] [place] [address] 06/08/2025 10:00 AM EDT Office Visit Family Medicine [facility] [address] [place] [address] [place] [phone] Carmen Blake MD [address] [place] [address] [place] [address] Pending Results Name Type Priority Associated Diagnoses Date /Time INFLUENZA A/B RSV SARS-COV2,PCR Lab Routine Viral URI 07/04/2024 11:36 AM EDT Scheduled Orders Name Type Priority Associated Diagnoses Orde r Schedule GROUP A STREP PCR Lab Routine Sore throat (viral) Ordered: 07/04/2024 INFLUENZA A/B RSV SARS-COV2,PCR Lab Routine Viral URI Expected: 07/04/2024 (Approximate), Expires: 07/04/2025 Scheduled Procedures Name Priority Associated Diagnoses Date/Ti me COLONOSCOPY FLEXIBLE PROXIMA L DIAGNOSTIC Recall Screening for colon cancer Scheduled Referrals Name Type Priority Associated Diagnoses Orde r Schedule SURGERY REFERRAL OP Referral Within 10 da ys (routine) Non-recurrent unilateral inguinal hernia without obstruction or gangrene Ordered: 07/04/2024 Health Maintenance Due Date Last Done Comments HIV Screening 1984 Hepatitis C Screening 1987 Cologuard 2014 Fecal Occult Blood Test 2014 Sigmoidoscopy 2014 Hepatitis B Vaccine (2 of 3 - 19+ 3-dose series) 10/07/2018 09/09/2018 Depression Screening 09/02/2021 09/02/2020 COVID-19 Vaccine (1 - 2022-2 4 season) 2024 Influenza Vaccine (FLU shot) [...] as of this encounter Visit Diagnoses Diagnosis Sore throat (viral)- Primary Acute pharyngitis Non-recurrent unilateral inguinal hernia without obstruction or gangrene Viral URI Acute upper respiratory infections of unspecified site documented in this encounter
[2024-07-07 04:54] LABS: Basophils # (auto) 0.06 K/uL (0.00-0.20); Basophils % (auto) 0.5 %; Eosinophils # (auto) 0.08 K/uL (0.00-0.50); Eosinophils % (auto) 0.6 %; Hemoglobin 15.4 g/dl (14.0-18.0); Immature Granulocytes # (auto) 0.07 K/uL (0.01-0.20); Immature Granulocytes % (auto) 0.5 %; Lymphocytes # (auto) 3.84 K/uL (1.20-3.40); Mean Corpuscular Hemoglobin 30.3 pg (25.0-34.0); Mean Corpuscular Volume 86.4 fL (80.0-100.0); Mean Platelet Volume 10.8 fL (9.4-12.4); Neutrophils # (auto) 7.84 K/uL (1.40-6.50); Neutrophils % (auto) 61.4 %; Platelet Count 284 K/uL (130-400); RDW Coefficient of Variation 12.3 % (11.5-14.5); RDW Standard Deviation 39.1 fL (36.4-46.3); Red Blood Count 5.09 M/uL (4.70-6.10); White Blood Count 12.79 K/ul (4.8-10.8)
[2024-07-07 05:09] LABS: Albumin Globulin Ratio 1.3 (0.9-2); Albumin Level 3.9 gm/dl (3.4-5.0); BUN Creatinine Ratio 19.3 (10-20); Bilirubin,Total 0.3 mg/dl (0.2-1.0); Calcium 9.1 mg/dl (8.6-10.3); Chol HDL Ratio 5.6 (0-5); Creatinine Clr Calc Pharmacy 84.8 ml/min; Est GFR (Non-African American) 72.5 ml/min; Magnesium 2.1 mg/dl (1.7-2.4); Potassium 3.7 mmol/L (3.5-5.1); Total Protein 6.9 gm/dl (6.0-8.3)
[2024-07-07 05:42] LABS: ANTI-Xa, UFH(UnfractionatedHep 0.55 IU/ml (0.3-0.7)
[2024-07-07 07:15] LABS: Estimated Average Glucose 134 mg/dl; Hemoglobin A1C 6.3 % (4.5-5.6)
[2024-07-07 08:11] VITALS: RESP 16
--- NOTE | 2024-07-07 08:49 | Electrocardiogram Report ---
Test Reason : Blood Pressure : */* mmHG Vent. Rate : 49 BPM Atrial Rate : 49 BPM P-R Int : 134 ms QRS Dur : 92 ms QT Int : 484 ms P-R-T Axes : 43 64 -9 degrees QTcB Int : 437 ms Sinus bradycardia T wave abnormality, consider anterolateral ischemia Abnormal ECG When compared with ECG of 06-Jul-2024 16:01, Criteria for Inferior infarct are no longer Present T wave inversion now evident in Anterior leads Confirmed by Marciano Rodriguez ([id number]) on 07/07/2024 8:48:43 AM Referred By: REFERRED SELF Confirmed By: Marciano Rodriguez
[2024-07-07] MEDS: ASPIRIN 81 MG ECTAB PO SCH (09:07)
[2024-07-07] MEDS: UMECLIDINIUM/VILANTEROL 62.5/25MCG 7 PUFFS/INHALER INH SCH (09:07)
--- NOTE | 2024-07-07 09:58 | XCELERA ---
[id number] \\[email or web address]\[id number]
--- OUTSIDE RECORDS SUMMARY | 2024-07-07 10:08 | External Medical Summary | Summary of Care ---
Author Name Unknown Organization [facility] Address [address] [facility] [address] Phone [phone] Care Team Providers Care Director Of Radio Services Name Role Phone Unavailable Primary Care Provider Unavailabl e Encounter Details Date Type Department Care Team (Late st Contact Info) Description 07/07/2024 Orders Only PATIENT PORTAL DO NOT DELETE THIS DEPT USED BY [place] [id number] Allergies Active Allergy Reactions Criticality Noted Date Comments Morphine Sulfate Other (Please comment) Medium 010 Chest tightness documented as of this encounter (statuses as of 07/07/2024) Medications Medication Sig Dispensed Refills Start Date [...] Oral Tablet (Lipitor)Indication s:Coronary artery disease involving [place] coronary artery of [place] heart without angina pectoris TAKE 1 TABLET BY MOUTH EVERY DAY 90 Tablet 1 05/20/2022 Active Anoro Ellipta 62.5-25 MCG/ACT Inhalation Aerosol Powder Breath Activated (umeclidinium-vilan terol) Inhale 1 Puff by mouth daily. 30 Each 05/24/2024 Active predniSONE 20 MG Oral Tablet (Deltasone)Indicati ons:Sore throat (viral) Take 2 Tablets by mouth in the morning for 5 days. 10 Tablet 07/04/2024 07/09/2024 Active documented as of this encounter (statuses as of 07/07/2024) Active Problems Problem Noted Date Diagnosed Date Right inguinal hernia 07/05/2024 Prediabetes 06/09/2021 Overview: Per Prediabetes protocol History of DVT (deep vein thrombosis) 05/29/2021 History of pulmonary embolus (PE) 05/29/2021 Overview: Saddle Coronary artery disease invo lving [place] coronary artery of [place] heart without angina pectoris 05/29/2021 KENAN (obstructive sleep apnea) 05/29/2021 REM sleep behavior disorder 09/17/2020 Nocturnal hypoxemia 09/17/2020 Overview: 170 minutes below 89%, REM related 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 06/01/2020 Mixed dyslipidemia 02/11/2011 Disc disorder of lumbar region 03/11/2007 Spinal stenosis of lumbar re gion without neurogenic claudication 03/11/2007 BMI 34.0-34.9,adult documented as of this encounter (statuses as of 07/07/2024) Resolved Problems Problem Noted Date Diagnosed Date Resolved Date Leg DVT (deep venous thrombo embolism), acute, right 06/01/2020 12/05/2020 Overview: [facility] Obesity, Class I, BMI 30.0-3 4.9 (see actual BMI) 02/11/2011 05/18/2014 Tobacco use disorder 08/03/2003 011 Gastritis 04/14/2018 documented as of this encounter (statuses as of 07/07/2024) Immunizations Name Administration Dates Next Due HEP [...] on file documented as of this encounter Plan of Treatment Upcoming Encounters Date Type Department Care Team (Latest Contact Info) Description 07/25/2024 7:45 AM EDT Hospital Encounter [facility], Operating Room [facility] [address] [phone] Yon Moss MD [address] [place] [address] 07/25/2024 7:45 AM EDT - 07/25/2024 9:23 AM EDT Surgery OR [facility], Operating Room [facility] [address] [place] [phone] Yon Moss MD [address] [place] [address] LAPAROSCOPIC REPAIR INGUINAL HERNIA INITIAL 08/09/2024 2:00 PM EDT Office Visit General Surgery, [facility] [address] [address] Yon Moss MD [address] [place] [address] 06/08/2025 10:00 AM EDT Office Visit Family Medicine [address] [place] [phone] Carmen Blake MD [address] [place] [address] [place] [address] Scheduled Procedures Name Priority Associated Diagnoses Date/Ti me LAPAROSCOPIC REPAIR INGUINAL HERNIA INITIAL Right inguinal hernia 07/25/2024 7:45 AM EDT COLONOSCOPY FLEXIBLE PROXIMAL DIAGNOSTIC Recall Screening for colon cancer Health [...]
--- OUTSIDE RECORDS SUMMARY | 2024-07-07 10:08 | External Medical Summary | Summary of Care ---
Author Name Unknown Organization [facility] Address [address] [place] [address] Phone [phone] Care Team Providers Care Lining Layer Name Role Phone Unavailable Primary Care Provider Unavailabl e Reason for Visit * Reason Comments Acute Encounter Details Date Type Department Care Team (Late st Contact Info) Description 07/06/2024 4:40 PM EDT Office Visit Family Medicine [address] [place] [phone] Abena Gilmore CRNP [address] [place] [address] [place] [address] Abnormal EKG* Allergies Active Allergy Reactions Criticality Noted Date Comments Morphine Sulfate Other (Please comment) Medium 010 Chest tightness documented as of this encounter (statuses as of 07/06/2024) Medications Medication Sig Dispensed Refills Start Date [...] Oral Tablet (Lipitor)Indication s:Coronary artery disease involving [place] coronary artery of [place] heart without angina pectoris TAKE 1 TABLET [...] as of this encounter (statuses as of 07/06/2024) Active Problems Problem Noted Date Diagnosed Date Right inguinal hernia 07/05/2024 Prediabetes 06/09/2021 Overview: Per Prediabetes protocol History of DVT (deep vein thrombosis) 05/29/2021 History of pulmonary embolus (PE) 05/29/2021 Overview: Saddle Coronary artery disease invo lving [place] coronary artery of [place] heart without angina pectoris 05/29/2021 KENAN (obstructive sleep apnea) 05/29/2021 REM sleep behavior disorder 09/17/2020 Nocturnal hypoxemia 09/17/2020 Overview: 170 minutes below 89%, REM related 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 06/01/2020 Mixed dyslipidemia 02/11/2011 Disc disorder of lumbar region 03/11/2007 Spinal stenosis of lumbar re gion without neurogenic claudication 03/11/2007 BMI 34.0-34.9,adult documented as of this encounter (statuses as of 07/06/2024) Resolved Problems Problem Noted Date Diagnosed Date Resolved Date Leg DVT (deep venous thrombo embolism), acute, right 06/01/2020 12/05/2020 Overview: [facility] Obesity, Class I, BMI 30.0-3 4.9 (see actual BMI) 02/11/2011 05/18/2014 Tobacco use disorder 08/03/2003 011 Gastritis 04/14/2018 documented as of this encounter (statuses as of 07/06/2024) Immunizations Name Administration Dates Next Due HEP [...] Sign Reading Time Taken Comments Blood Pressure 130/80 07/06/2024 3:13 PM EDT Pulse 52 07/06/2024 3:13 PM EDT Temperature 36.7 C (98 F) 07/06/2024 3:13 PM EDT Respiratory Rate - - Oxygen Saturation 94% 07/06/2024 3:13 PM EDT Inhaled Oxygen Concentration - - Weight - - Height - - Body Mass Index - - documented in this encounter Plan of Treatment Upcoming Encounters Date Type Department Care Team (Latest Contact Info) Description 07/25/2024 7:45 AM EDT Hospital Encounter OR [facility], Operating Room [facility] [address] [phone] Yon Moss MD [address] [place] [address] 07/25/2024 7:45 AM EDT - 07/25/2024 9:23 AM EDT Surgery OR [facility], Operating Room [facility] [address] [place] [phone] Yon Moss MD [address] [place] [address] LAPAROSCOPIC REPAIR INGUINAL HERNIA INITIAL 08/09/2024 2:00 PM EDT Office Visit General Surgery, [facility] [address] [place] [address] Yon Moss MD [address] [place] [address] 06/08/2025 10:00 AM EDT Office Visit Family Medicine [address] [place] [phone] Carmen Blake MD [address] [place] [address] [place] [address] Scheduled Procedures Name Priority Associated Diagnoses Date/Ti [...] as of this encounter Visit Diagnoses Diagnosis Right inguinal hernia- Primary Inguinal hernia without mention of obstruction or gangrene, unilateral or unspecified, (not specified as recurrent) Abnormal EKG- Primary Nonspecific abnormal electrocardiogram (ECG) (EKG) Right inguinal hernia Inguinal hernia without mention of obstruction or gangrene, unilateral or unspecified, (not specified as recurrent) documented in this encounter
--- OUTSIDE RECORDS SUMMARY | 2024-07-07 10:09 | External Medical Summary | Summary of Care ---
Author Name Unknown Organization [facility] Address [address] [facility] [place] [address] Phone [phone] Care Team Providers Care Bus Boy Name Role Phone Unavailable Primary Care Provider Unavailabl e Encounter Details Date Type Department Care Team (Late st Contact Info) Description 07/06/2024 3:00 PM EDT Nurse Only Ancillary [address] [place] [address] [place], Nurse [address] [place] [address] Arrived Allergies Active Allergy Reactions Criticality Noted Date [...] Oral Tablet (Lipitor)Indication s:Coronary artery disease involving [place] coronary artery of [place] heart without angina pectoris TAKE 1 TABLET [...] Overview: Saddle Coronary artery disease invo lving [place] coronary artery of [place] heart without angina pectoris 05/29/2021 KENAN (obstructive [...] thrombo embolism), acute, right 06/01/2020 12/05/2020 Overview: [facility] Obesity, Class I, BMI 30.0-3 4.9 (see [...] on file documented as of this encounter Nursing Notes * Ashlee Pacheco LPN - 07/06/2024 2:58 PM EDT EKG reviewed by Abena Gilmore PA-C Pt sent to ER for changes in EKG. documented in this encounter Plan of Treatment Upcoming Encounters Date Type Department Care Team (Latest Contact Info) Description 07/06/2024 4:40 PM EDT Office Visit Family Medicine [address] [place] [phone] Abena Gilmore CRNP [address] [place] [address] [place] [address] 07/25/2024 7:45 AM EDT Hospital Encounter OR [facility], Operating Room [facility] [address] [place] [phone] Yon Moss MD [address] [place] [address] 07/25/2024 7:45 AM EDT - 07/25/2024 9:23 AM EDT Surgery OR [facility], Operating Room [facility] [address] [place] [phone] Yon Moss MD [address] [place] [address] LAPAROSCOPIC REPAIR INGUINAL HERNIA INITIAL 08/09/2024 2:00 PM EDT Office Visit General Surgery, [facility] [address] [place] [address] oYn Moss MD [address] [place] [address] 06/08/2025 10:00 AM EDT Office Visit Family Medicine [address] [place] [phone] Carmen Blake MD [address] [place] [address] [place] [address] Scheduled Procedures Name Priority Associated Diagnoses Date/Ti [...] unilateral or unspecified, (not specified as recurrent) Pre-op examination- Primary Preoperative examination, unspecified Right inguinal hernia Inguinal hernia without mention of obstruction or gangrene, unilateral or unspecified, (not specified as recurrent) documented in this encounter
[2024-07-07 10:19] VITALS: PULSE 50
[2024-07-07 10:53] VITALS: BP 106/70; TEMP 97.7; O2SAT 94
--- NOTE | 2024-07-07 11:45 | Cardiology Consultation ---
Date of Consultation July 07, 2024 Assessment & Plan (1) Abnormal ECG: (2) Bradycardia: (3) Dyspnea on exertion: (4) Coronary artery disease: Plan 1. Abnormal EKG: He has T wave inversions in the lateral precordial leads. This is a change from prior EKGs. Review of his EKG during stress testing also revealed some T wave inversions. Nonspecific finding. Known history of coronary disease. 2. Coronary artery disease: Known to have nonobstructive disease involving the right coronary artery. Currently notations are due to dyspnea on exertion. This was present ever since his pulmonary embolus and appears stable. No symptoms of chest discomfort. Given his known coronary disease he would benefit from continuing apixaban and more aggressive lipid control with statin therapy. 3. Hyperlipidemia: LDL 156. Patient with known coronary disease his goal LDL would be at least less than 70. I would recommend the addition of a high-dose statin, atorvastatin or rosuvastatin. 4. Pulmonary embolus: Continuing on systemic anticoagulation 5. Dyspnea on exertion: [place] to be related to his prior pulmonary embolus. Possibly related to chronotropic incompetence. Unchanged over several years. 6. Bradycardia: He has an element of bradycardia at baseline. It is possible that some of his symptoms are related to chronotropic incompetence. Outpatient monitoring was performed previously which did not demonstrate chronotropic incompetence. For worsening symptoms repeat monitoring could be performed. Based on his need to undergo surgery and concerns over his EKG in the setting of known right coronary disease we will perform repeat stress testing today. Will choose dobutamine over exercise based on his known dyspnea and short exercise time previously. History of Present Illness Reason for Consultation: Abnormal EKG Requesting Physician: Ibrahima Attending Physician: Tim Marcus MD History of Present Illness The patient is a 53-year-old gentleman with a history of nonobstructive coronary disease involving the right coronary artery who presented for routine preoperative evaluation. This evaluation involved an EKG. The patient's EKG was felt to be abnormal and he was referred to the emergency room and met in the hospital. He was subsequently admitted to the hospital for additional evaluation. Curiously, the patient was not having symptoms of heart disease. He does have a history of a pulmonary embolus and since that event he has had an element of dyspnea on exertion. He reports stability of this dyspnea. Can occur with significant activity such as going up a flight of stairs. He does not have associated chest pain. In 2020 he was evaluated for the symptoms with exercise echocardiography. He had an abnormal EKG during that test but normal augmentation of all segments on echocardiography. Based on his symptoms and abnormal EKG he was referred for coronary angiography which demonstrated a nonobstructive lesion in the right coronary artery. Again, the patient does not have exertional chest pain. His exertional dyspnea has been stable. He reports "pinching" pains on occasion and occasional "flutters". The symptoms are infrequent and quite brief in duration. He denies significant dizziness, lightheadedness or presyncope. No recent history of syncope. He did report upper respiratory symptoms consistent with a viral illness recently. No fevers or chills. No symptoms currently. Allergies Allergy/AdvReac Type Severity Reaction Status Date / Time morphine Allergy Intermediate CHEST Verified 10/08/22 16:02 TIGHTNESS Home Medications Medication Instructions Recorded Confirmed Type umeclidinium 62.5 mcg-vilanterol 1 inh inhalation DAILY 90 days #90 10/22/23 07/06/24 Rx 25 mcg/actuation powdr for puffs inhalation (Anoro Ellipta) albuterol sulfate 90 mcg/actuation 2 puff inhalation Q6H PRN 01/20/24 07/06/24 Rx aerosol inhaler shortness of breath or wheezing #3 Inhalers apixaban 5 mg tablet (Eliquis) 5 mg PO BID #180 tabs 01/20/24 07/06/24 Rx Patient History Medical History Pneumonia Surgical History History of appendectomy Family History (Updated 07/06/24 @ 19:10 by Ashlee Alexandra PA-C) Brother Deep vein thrombosis Grandfather (Maternal) Diabetes Mother Coronary heart disease Social History Smoking Status: Never smoker Tobacco Type: Cigarettes Age Started Using Tobacco: 14; Age Quit Using Tobacco: 34; packs per day: 1; Do You Dip or Chew Tobacco: No; Hx Alcohol Use: Yes Alcohol type: beer Alcohol Intake Frequency: Monthly or Less Hx Substance Use: No Preferred Language: Djiboutian Communication Ability: Effective Atlassian Administrator Required: No Beliefs That Will Affect Care: None marital status: Current Living Situation: Spouse Other Information That Helps Us Care for You: No Feels Safe at Home: Yes Safety Concerns: Feels Safe At This Time Assistive Devices: Glasses Review of Systems Review of Systems: Per HPI Physical Exam Physical Exam: The patient is alert and oriented. Mood and affect appeared normal. He answered all questions appropriately. HEENT: Pupils are equal and reactive to light and accommodation. Extraocular movements are intact. The sclerae are anicteric. Neuro: Cranial nerves intact Lungs: Clear to auscultation bilaterally. He has good air movement without use of accessory muscles. No rales wheezes or rhonchi. Cardiac: Heart demonstrates a regular rate and rhythm. Normal S1 and S2. No murmurs on examination. Pulses: The patient has palpable radial pulses bilaterally that are equal in intensity Extremities: There was no evidence of hypoperfusion. There is no cyanosis or clubbing. There is no edema. Skin: I did not appreciate any rashes on examination today. Results & Data Vital Signs (Past 12 Hours) Vital Signs Temp Pulse Pulse Resp BP Pulse Ox O2 Del Method 07/07/24 10:52 36.5 C 50 L 16 106/70 94 Room Air 07/07/24 10:13 50 L 07/07/24 08:10 36.4 C L 48 L 16 108/72 95 Room Air 07/07/24 05:23 51 L 07/07/24 05:10 Room Air 07/07/24 03:30 36.8 C 58 L 18 133/86 96 Room Air Laboratory Results Abnormal Lab Results 07/06/24 07/06/24 07/06/24 16:13 19:53 Unknown WBC 11.43 H RBC 5.23 Hgb 15.6 Hct 44.7 MCV 85.5 MCH 29.8 MCHC 34.9 RDW Std Deviation 38.6 RDW Coeff of [place] 12.4 Plt Count 287 MPV 10.6 Immature Gran % (Auto) 0.6 Neut % (Auto) 83.0 Lymph % (Auto) 13.6 Moffat % (Auto) 2.4 Eos % (Auto) 0.1 Baso % (Auto) 0.3 Neut # (Auto) 9.48 H Lymph # (Auto) 1.56 Moffat # (Auto) 0.28 Eos # (Auto) 0.01 Baso # (Auto) 0.03 Immature Gran # (Auto) 0.07 PT 10.4 INR 1.0 APTT 26 PTT Ratio 1.0 Heparin Anti-Xa, Unfract Sodium 136 Potassium 4.5 Chloride 106 Carbon Dioxide 22 Anion Gap 8 BUN 23 Creatinine 1.19 Est Cr Clr Drug Dosing 81.4 Est GFR ( Amer) 79.8 Est GFR (Non-Af Amer) 68.8 BUN/Creatinine Ratio 19.3 Glucose 118 H Estimat Average Glucose Hemoglobin A1c Calcium 9.5 Magnesium Total Bilirubin 0.3 AST 17 ALT 25 Alkaline Phosphatase 85 Troponin I High Sens 8.2 9.4 Total Protein 7.5 Albumin 4.4 Globulin 3.1 Albumin/Globulin Ratio 1.4 Triglycerides Cholesterol LDL Cholesterol, Calc VLDL Cholesterol, Calc HDL Cholesterol Cholesterol/HDL Ratio Urine Color Yellow Urine Appearance Clear Urine pH 5.0 Ur Specific [place] 1.026 Urine Protein Negative Urine Glucose (UA) Negative Urine Ketones Negative Urine Blood Negative Urine Nitrite Negative Urine Bilirubin Negative Urine Urobilinogen Negative Ur Leukocyte Esterase Negative 07/07/24 07/07/24 00:58 04:11 WBC 12.79 H RBC 5.09 Hgb 15.4 Hct 44.0 MCV 86.4 MCH 30.3 MCHC 35.0 RDW Std Deviation 39.1 RDW Coeff of [place] 12.3 Plt Count 284 MPV 10.8 Immature Gran % (Auto) 0.5 Neut % (Auto) 61.4 Lymph % (Auto) 30.0 Moffat % (Auto) 7.0 Eos % (Auto) 0.6 Baso % (Auto) 0.5 Neut # (Auto) 7.84 H Lymph # (Auto) 3.84 H Moffat # (Auto) 0.90 H Eos # (Auto) 0.08 Baso # (Auto) 0.06 Immature Gran # (Auto) 0.07 PT INR APTT PTT Ratio Heparin Anti-Xa, Unfract 0.55 Sodium 136 Potassium 3.7 Chloride 105 Carbon Dioxide 23 Anion Gap 8 BUN 22 Creatinine 1.14 Est Cr Clr Drug Dosing 84.8 Est GFR ( Amer) 84.0 Est GFR (Non-Af Amer) 72.5 BUN/Creatinine Ratio 19.3 Glucose 98 Estimat Average Glucose 134 Hemoglobin A1c 6.3 H Calcium 9.1 Magnesium 2.1 Total Bilirubin 0.3 AST 14 ALT 22 Alkaline Phosphatase 81 Troponin I High Sens 6.2 9.7 Total Protein 6.9 Albumin 3.9 Globulin 3.0 Albumin/Globulin Ratio 1.3 Triglycerides 133 Cholesterol 223 H LDL Cholesterol, Calc 156 VLDL Cholesterol, Calc 27 HDL Cholesterol 40 Cholesterol/HDL Ratio 5.6 H Urine Color Urine Appearance Urine pH Ur Specific [place] Urine Protein Urine Glucose (UA) Urine Ketones Urine Blood Urine Nitrite Urine Bilirubin Urine Urobilinogen Ur Leukocyte Esterase Diagnostic Findings Echocardiogram 07/07/2024: Normal LV systolic function with ejection fraction of 60 to 65%. Mild right ventricular dilation with normal function. No significant valvular heart disease. Echocardiogram 08/14/2022: Normal LV systolic function with ejection fraction of 65 to 70%. Mild LVH. Mildly dilated right ventricle with normal systolic function. No significant valvular heart disease. Normal right ventricular pressures. Coronary angiography 12/09/2020: Codominant circulation. 67% right coronary stenosis evaluated with FFR. Found to be nonflow limiting. Right heart catheterization 12/09/2020: PA pressure 39/12 mmHg ECG Additional Comments: Sinus bradycardia with lateral T wave inversions PG Care Time/CCT Total # of Minutes Spent Total Time Spent with Patient: Total time spent is greater than 50% in coordination of care (as documented) at patient's floor/unit and/or counseling patient: Coding Level of Care Code 40337 IN/OBS CONSULT LVL 4,60M Diagnoses Abnormal ECG R94.31 Bradycardia R00.1 Dyspnea on exertion R06.00 Coronary artery disease I25.10
[2024-07-07] MEDS: ATROPINE SULFATE 0.1 MG/ML 10ML SYR IV ONE (12:08)
[2024-07-07] MEDS: DOBUTamine HCL 12.5 MG/ML 20 ML VIAL IV ONE (12:09)
[2024-07-07] MEDS: METOPROLOL TARTRATE 1 MG/ML VIAL IV ONE (12:10)
[2024-07-07] MEDS: APIXABAN 5 MG TABLET PO ONE (12:31)
--- NOTE | 2024-07-07 12:49 | XCELERA ---
[id number]
--- NOTE | 2024-07-07 12:54 | Discharge Summary ---
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 He is scheduled to have a right inguinal hernia repaired by Dr. Moss at the end of the month. He presented today for preoperative testing and ECG revealed new anterolateral T wave inversions. Patient reports chronic shortness of breath ever since his pulmonary embolism diagnoses. He also complains of intermittent chest twinges that have been off and on and only last seconds to minutes. It is substernal and nonradiating. Again these have been present since his pulmonary embolism. He does report [place] on 1 flight of steps. He reports his steps seem to affect him more. Currently he is chest pain-free, denies fever, chills, sweats, lightheadedness, dizziness, nausea, vomit, abdominal pain, change in bowel or urinary habits. He denies any prior history of CAD. His mother does have a history of CAD as well as a pacemaker, but he is unsure of her age of onset. Admission Exam Per Admitting Provider Vitals signs as noted above General Appearance:Moderately built and nourished, no apparent distress Head: normocephalic, Atraumatic Eyes: normal inspection, EOMI Neck: supple, Trachea midline Respiratory/Chest: Normal breath sounds, CTA, No accessory muscle use Cardiovascular: S1, S2, No murmur, bradycardia Abdomen/GI:Soft, Non tender, Bowel sounds present Extremities/Musculoskeletal:normal inspection, no edema Neurologic/Psych:AAOX3, grossly no focal neurological deficits Skin: normal color, warm Principal Diagnosis Abnormal EKG, rule out ischemia Discharge Exam GENERAL: Alert and oriented x3. NAD, on RA. HEENT: No pallor, no icterus. Pupils equal, round and reactive to light. Oral mucosa moist. NECK: No JVD, no neck masses. HEART: S1 and S2 heard. Regular rate and rhythm. No murmur, no gallop. RESPIRATORY SYSTEM: Normal AP diameter. No accessory muscle use. No wheezing, no crackles. ABDOMEN: Soft, bowel sounds present, nontender, no distention. CENTRAL NERVOUS SYSTEM: No facial droop. Speech is clear. Obeys simple commands. Moves extremities. EXTREMITIES: No edema, no erythema seen. 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 Pt scheduled for R inguinal hernia repair at end of month with Dr. Moss at [facility]. He presented for outpt pre op testing and ecg was concerning for ischemia so he was referred to ED. Pt with t wave inversions V4-V6 which is new compared to ecg 2019, trop negative, no c/o chest pain. Abnormal resting ecg, performed in the pre op setting admit to PCU cycle trops, obtain resting echo hold eliquis, last dose at 0930 on 07/06, will start IV heparin in event abnormal stress NPO after midnght for likely stress test in a.m. consult [facility] cards as he has seen them in the past Hx of cath in 2020 which showed nonobstructive CAD in the RCA will empirically start 81mg ASA for now fasting lipid panel, a1C in a.m Hx of SADDLE PE DVT RV Dilatation follows Dr. Avilez continue anticoagulation Hx of KENAN pt with reported weight loss, he does not wear a cpap device or mask Obesity BMI 38 encourage diet/lifestyle modifications DVT ppx: IV Heparin Dispo admit for cardiac work up FULL CODE PCP: Dr. Blake Addendum 07/07/2024: Patient was seen and examined at bedside. Troponin x 4 negative. Patient with no chest pain. Patient has baseline shortness of breath which has not increased since last 4 years which he got after COVID/PE 4 years ago. discussed with cardiology, patient underwent dobutamine stress echo, no evidence of ischemia. He is okay to be discharged from cardiology standpoint. He is being discharged with following instruction at the point of discharge: Follow-up with your primary care physician within a week time and likely you will need labs CBC/CMP/magnesium/phosphorus. Follow-up with your cardiology as prior. Because of your elevated LDL levels, you are being started on atorvastatin. You will need liver function test monitoring in 2 to 3 months time. You will also need your lipid profile monitoring. Coordinate with your PCP office to set up the test and long-term monitoring. Take your medications as prescribed. Please make sure that you are able to get your medications today by calling your pharmacy before you leave the hospital so that your treatment continuity is not broken. Home Health Attestation I certify that this patient is under my care and that I, or a physicians energy assistant working with me, had a face to-face encounter that meets the home health [id number] encounter requirements with this patient. The encounter with the patient was in whole, or in part, for the following medical condition, which is the primary reason for home health care (list medical condition): I certify that, based on my findings, the following services are medically necessary home health services: My clinical findings support the need for the above services because: Further, I certify that my clinical findings support that this patient is homebound (i.e. absences from home require considerable and taxing effort and are for medical reasons or jewish services or infrequently or of short durat ion when for other reasons) because: Certification for Home Health Services: Based on the above findings, I certify that this patient is confined to the home and needs intermittent residential care, physical therapy and/or speech therapy or continues to need occupational therapy. The patient is under my care, and I have initiated the establishment of the plan of care. This patient will be followed by a physician who will periodically review the plan of care. Total Time Total Time Spent Total Time Spent (In Minutes): 45 Discharge Plan Discharge Items Patient Disposition: Home - Self-Care Reason For Visit: ABNORMAL ECG Discharge Diagnosis: Abnormal EKG, rule out ischemia Activity: Resume your previous activity Non-emergency contact: Primary Care Provider Call non-emergency contact if: you have any medication questions and your symptoms worsen Follow-up/Referrals: Carmen Blake MD [Primary Care Provider] - Diet: Heart Healthy Addtl Attending Provider Instructions: Follow-up with your primary care physician within a week time and likely you will need labs CBC/CMP/magnesium/phosphorus. Follow-up with your cardiology as prior. Because of your elevated LDL levels, you are being started on atorvastatin. You will need liver function test monitoring in 2 to 3 months time. You will also need your lipid profile monitoring. Coordinate with your PCP office to set up the test and long-term monitoring. Take your medications as prescribed. Please make sure that you are able to get your medications today by calling your pharmacy before you leave the hospital so that your treatment continuity is not broken. Pending Studies at Discharge: No Stand-Alone Forms: My [facility] [employer], Smoking Cessation Medications and DC Order Prescriptions: New atorvastatin 40 mg Tablet 40 mg PO QAM Qty: 30 0RF Continued Eliquis 5 mg tablet 5 mg PO BID Qty: 180 3RF albuterol sulfate 90 mcg/actuation HFA aerosol inhaler 2 puff inhalation Q6H PRN (Reason: shortness of breath or wheezing) Qty: 3 3RF Rx Instructions: Use 2 puffs 10 minutes before going out in cold air or prior to exercise Anoro Ellipta 62.5-25 mcg/actuation blister with device 1 inh inhalation DAILY 90 Days Qty: 90 3RF Discharge Orders: Discharge Order (Routine); Ordered 07/07/24 Ordered By: Tim Gilliam/Other Patient Handouts: Prediabetes, 5 Steps for Eating Healthier Admission Data Admit Date/Time: 07/06/24 18:31 Attending Provider: Tim Marcus Admit Provider: Tang Lara Primary Care Provider: Carmen Blake Other Providers: Matt Mcclellan
[2024-07-07] MEDS: ATORVASTATIN 40 MG TAB PO SCH (13:37)
== END 2024-07-07 14:30 | disposition home or self-care (01) ==
LOC: ED 15:46 → 2E 15:46 → SUATTDRO 18:31 → 2E 21:13

== ENCOUNTER 2025-05-25 19:16 | Inpatient (IN) ==
--- NOTE | 2025-05-25 19:25 | Emergency Department Note ---
Impression & Plan Back pain, Intractable back pain ED Provider Note CHIEF COMPLAINT: Back pain HISTORY OF PRESENTING ILLNESS: The patient is a 54-year-old male who presents to the emergency department with his stating that he sees at [facility] pain management has been having injections in his back with the last one being on 05/09. He bent over in the shower today and felt something pop and immediately felt weakness, numbness, and tingling in the right leg. He did not fully fall over and was able to catch himself but he was not able to ambulate. Patient reports that his pain is significant and he is uncomfortable lying flat in bed. He denies loss of bowel or bladder, numbness or tingling of his groin, or fever. REVIEW OF SYSTEMS: See HPI for pertinent positives and pertinent negatives. ALLERGIES: Morphine MEDICATIONS: See below PAST MEDICAL HISTORY: See below PHYSICAL EXAM: VITALS: Vitals are noted on the nurse's note and reviewed by myself. Vital signs stable. GENERAL: 54-year-old male, patient in a significant amount of pain, lying flat in bed, in no acute distress, nondiaphoretic, well-developed well-nourished. SKIN: Capillary refill less than 2 seconds. HEENT: Normocephalic. PERRLA. EOMI. Nares patent. Mucous membranes moist. Neck is supple. HEART: Regular rate and rhythm without murmurs gallops or rubs. LUNGS: CTA BL without wheezes, rales or rhonchi. No retractions or accessory muscle use. ABDOMEN: Positive BS x 4. Soft, nontender, without masses or organomegaly. No guarding or rebound tenderness. MUSCULOSKELETAL: Tenderness upon palpation to the lumbar spine and right-sided lumbar paraspinal muscles. Straight leg raise positive. Patient is hardly able to move the right leg. He reports numbness and tingling. Normal sensation on exam. Physical exam is limited due to discomfort. No tenderness upon palpation to the cervical or thoracic spine. NEURO: Patient was alert and oriented. No focal neurological deficits. DIFFERENTIAL DIAGNOSIS: Differential diagnosis includes cauda equina syndrome, cord compression, disc herniation, muscle spasm, lumbar strain, epidural abscess, malignancy, transverse myelitis, urinary tract infection, colitis, diverticulitis, kidney stone, among others. ED COURSE AND MEDICAL DECISION MAKING: HISTORY FROM INDEPENDENT HISTORIAN: The patient himself and his . MEDICATIONS GIVEN: Decadron 10 mg IV, oxycodone 5 mg PO, Toradol 15 mg IV INTERPRETATION OF LABS: I interpreted the labs with full lab results as below in the lab section of this note. Pertinent lab results discussed in the MDM section below. INTERPRETATION OF IMAGING: Imaging studies were interpreted by myself and read by radiology as per the imaging section of this note. MRI lumbar spine - Advanced disc degeneration at L5-S1: Moderate disc degeneration at L3- 4, L4-5, and mild disc degeneration at L2-3 with annular disc bulging causing a mild subarticular recess stenosis at L2-3, L3-4, L5-S1 and a severe right and moderate left subarticular recess stenosis at L4-5 impinging the transiting L5 nerve roots. 2. There is a moderate spinal canal stenosis at L4-5. 3. There is mild bilateral L3-4 and mild bilateral L5-S1 neuroforaminal stenoses without evidence of neural impingement. 4. No evidence of fracture, infection, tumor or arachnoiditis. ESCALATION OF CARE CONSIDERED: Escalation of care was considered after evaluating the patient who can only lie flat in bed due to discomfort. He has a known history of back pain and reports feeling a pop with weakness, numbness, and tingling in the right lower extremity. He has not been able to ambulate due to discomfort. After pain management here in the emergency department he is still not able to move from the flat position. An MRI of the lumbar spine was obtained and the patient was admitted for pain management and orthopedic spine consultation. CONSULTATIONS: On-call orthopedic origination specialist Dr. Moise - Presented the patient to the provider and our treatment plan here in the emergency department. Discussed admitting him for pain control and having him follow-up with him regarding possible surgery or outpatient follow-up. Agrees that admission to pain management is warranted. On-call [facility] hospitalist Dr. England - Presented the patient to the provider and inform them of my consultation with the orthopedic origination specialist. They agreed to admitting the patient to medicine for pain management and will reach out to the provider in the morning for consultation. [facility] SUMMARY: I evaluated the 54-year-old male who presents to the emergency department due to lower back pain and right sided weakness, numbness, and tingling after bending down in the shower feeling a popping sensation in his back. See HPI and physical exam above. IV access was established and labs were obtained. Decadron, Toradol, and oxycodone were given initially for symptom management. Due to the patient's presentation of weakness, numbness, and tingling of the right lower extremity an MRI of the lumbar spine was ordered. Patient does not deny numbness or tingling in his groin as well as loss of bowel or bladder. MRI shows the findings listed above. A consultation with on-call orthopedic origination specialist can be seen in detail above. On reevaluation the patient is still lying flat in bed and is not able to sit up or to ambulate on his own without extreme discomfort. The patient was admitted to medicine and that consultation can be seen in detail above. They agreed to admission for pain management. Patient also agrees to the outlined treatment plan and admission for pain management as he does not feel he can go home on his own this evening. All of his questions were answered. The patient was admitted in stable condition. DIAGNOSIS: Back pain, intractable back pain The chart was completed utilizing [employer] Speech voice recognition software. Grammatical errors, random word insertions, pronoun errors, and incomplete sentences are an occasional consequence of this system due to software limitations, ambient noise, and hardware issues. Any formal questions or concerns about the content, text, or information contained within the body of this dictation should be directly addressed to the provider for clarification. Past Med/Surg History Problem List (Updated 05/26/25 @ 18:37 by Jeannie Raphael PA-C) Intractable back pain (Acute) Back pain (Acute) Chronic anticoagulation Chronic thromboembolic disease 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 with discogenic back pain and leg pain Lumbar stenosis with neurogenic claudication Lumbar spondylosis Lumbar stenosis without neurogenic claudication Severe back pain Lumbar radiculopathy Herniated lumbar disc without myelopathy Coronary artery disease Obesity (BMI 30-39.9) Abnormal ECG Bradycardia Dyspnea on exertion Dyspnea and respiratory abnormalities Pre-syncope Pre-procedural examination DVT (deep venous thrombosis) Pulmonary embolism Right ventricular dilation Nocturnal hypoxemia Headache Sleep apnea Pulmonary infarction Hyperhomocysteinemia COVID-19 ruled out Discharge planning issues DVT prophylaxis Acute saddle pulmonary embolism (Acute) Acute deep vein thrombosis (DVT) of right lower extremity (Acute) Elevated troponin I level (Acute) Elevated troponin Saddle pulmonary embolus Dyslipidemia History of cardiac cath Non-cardiac chest pain (Acute) Medical History Pneumonia Surgical History History of appendectomy Family History Brother Deep vein thrombosis Grandfather (Maternal) Diabetes Mother Coronary heart disease Social History Smoking Status: Never smoker Tobacco Type: Cigarettes Age Started Using Tobacco: 14; Age Quit Using Tobacco: 34; packs per day: 1; Do You Dip or Chew Tobacco: No; Hx Alcohol Use: Yes Alcohol type: beer Alcohol Intake Frequency: Monthly or Less Hx Substance Use: No Preferred Language: Turkish Communication Ability: Effective Cricket Coach Required: No Beliefs That Will Affect Care: None marital status: Current Living Situation: Spouse Other Information That Helps Us Care for You: No Feels Safe at Home: Yes Safety Concerns: Feels Safe At This Time Assistive Devices: Walker Allergies Allergies Allergy/AdvReac Type Severity Reaction Status Date / Time morphine Allergy Intermediate CHEST Verified 05/25/25 23:15 TIGHTNESS Home Meds Home Medications Medication Instructions Recorded Confirmed gabapentin 300 mg capsule 900 mg PO HS 05/25/25 05/25/25 Previous Rx's Medication Instructions Recorded alee (Ultra-Light Rollator misc) #1 ea 12/01/24 albuterol sulfate 90 mcg/actuation 2 puff inhalation Q6H PRN 12/08/24 aerosol inhaler shortness of breath or wheezing #3 Inhalers umeclidinium 62.5 mcg-vilanterol 1 inh inhalation DAILY 90 days #90 12/08/24 25 mcg/actuation powdr for puffs inhalation (Anoro Ellipta) apixaban 5 mg tablet (Eliquis) 5 mg PO BID #180 tabs 05/23/25 Results & Data (ED) Vital Signs Vital Signs - 24 hr 05/25/25 19:18 05/25/25 21:08 05/25/25 23:00 Temperature 36.6 C 36.6 C Temperature Source Temporal Artery Scan Oral Pulse Rate 75 Pulse Rate [Finger] 60 69 Respiratory Rate 18 16 18 Respiratory Effort / Characteristics Non-Labored Spontaneous Non-Labored Spontaneous Non-Labored Spontaneous Respiratory Depth Normal Normal Normal Respiratory Pattern Regular Blood Pressure 154/72 H Blood Pressure [Right Arm] 128/73 130/70 Blood Pressure Mean 99 Blood Pressure Mean [Right Arm] 91 90 Blood Pressure Position [Right Arm] Lying Lying Pulse Oximetry 97 93 93 Oxygen Delivery Method Room Air Room Air Room Air Sepsis Recent Fever Within 48 Hours No Sepsis New/Unexplained Change in Mental Status No Sepsis Action Taken by Nursing No Action Required Laboratory Data 05/26/25 05:26 05/27/25 05:56 Lab Results 05/25/25 Range/Units 19:47 WBC 10.65 (4.8-10.8) K/ul RBC 5.38 (4.70-6.10) M/uL Hgb 16.0 (14.0-18.0) g/dl Hct 46.0 (42.0-52.0) % MCV 85.5 (80.0-100.0) fL MCH 29.7 (25.0-34.0) pg MCHC 34.8 (32.0-36.0) g/dL RDW Std Deviation 38.8 (36.4-46.3) fL RDW Coeff of [place] 12.6 (11.5-14.5) % Plt Count 269 (130-400) K/uL MPV 10.0 (9.4-12.4) fL Immature Gran % (Auto) 0.5 % Neut % (Auto) 63.2 % Lymph % (Auto) 27.1 % [place] % (Auto) 6.2 % Eos % (Auto) 2.5 % Baso % (Auto) 0.5 % Neut # (Auto) 6.73 H (1.40-6.50) K/uL Lymph # (Auto) 2.89 (1.20-3.40) K/uL [place] # (Auto) 0.66 H (0.11-0.59) K/uL Eos # (Auto) 0.27 (0.00-0.50) K/uL Baso # (Auto) 0.05 (0.00-0.20) K/uL Immature Gran # (Auto) 0.05 (0.01-0.20) K/uL Sodium 137 (136-145) mmol/L Potassium 3.7 (3.5-5.1) mmol/L Chloride 106 (98-107) mmol/L Carbon Dioxide 23 (21-32) mmol/L Anion Gap 8 (3-11) BUN 14 (6-23) mg/dl Creatinine 1.43 H (0.6-1.4) mg/dl Est Cr Clr Drug Dosing Not Reportable eGFR 57.86 BUN/Creatinine Ratio 9.8 L (10-20) Glucose 127 H (70-99(Fasting)) mg/dl Calcium 9.1 (8.6-10.3) mg/dl Total Bilirubin 0.3 (0.2-1.0) mg/dl AST 19 (13-39) U/L ALT 28 (7-52) U/L Alkaline Phosphatase 88 (34-104) U/L Total Protein 7.1 (6.0-8.3) gm/dl Albumin 3.9 (3.4-5.0) gm/dl Globulin 3.2 (2.5-4.0) gm/dl Albumin/Globulin Ratio 1.2 (0.9-2) Administered Medications Acetaminophen (Acetaminophen 500 Mg Tab) 1,000 mg PO Q8 GRAHAM Stop: 06/25/25 13:59 Last Admin: 05/27/25 13:51 Dose: 1,000 mg Documented By: Admin: 05/27/25 05:31 Dose: 1,000 mg Documented By: Admin: 05/26/25 20:56 Dose: 1,000 mg Documented By: Admin: 05/26/25 14:36 Dose: Not Given Documented By: SHAKILA Apixaban (Apixaban 5 Mg Tablet) 5 mg PO BID GRAHAM Stop: 06/25/25 08:59 Last Admin: 05/26/25 08:10 Dose: 5 mg Documented By: SHAKILA Cyclobenzaprine HCl (Cyclobenzaprine Hcl 10 Mg Tab) 10 mg PO TID GRAHAM Stop: 06/25/25 13:59 Last Admin: 05/27/25 13:52 Dose: 10 mg Documented By: Admin: 05/27/25 07:54 Dose: 10 mg Documented By: Admin: 05/26/25 20:56 Dose: 10 mg Documented By: Admin: 05/26/25 15:00 Dose: 10 mg Documented By: SHAKILA Dexamethasone (Dexamethasone 4 Mg Tab) 4 mg PO TID GRAHAM Stop: 06/25/25 08:59 Last Admin: 05/27/25 15:08 Dose: 4 mg Documented By: Admin: 05/27/25 07:55 Dose: 4 mg Documented By: Admin: 05/26/25 20:57 Dose: 4 mg Documented By: Admin: 05/26/25 14:35 Dose: 4 mg Documented By: Admin: 05/26/25 09:55 Dose: 4 mg Documented By: SHAKILA Enoxaparin Sodium (Enoxaparin Inj 120 Mg/0.8 Ml Syr) 111 mg SQ Q12 GRAHAM Stop: 06/25/25 12:14 Last Admin: 05/27/25 07:55 Dose: 111 mg Documented By: Admin: 05/26/25 23:19 Dose: 111 mg Documented By: Admin: 05/26/25 13:04 Dose: 111 mg Documented By: SHAKILA Gabapentin (Gabapentin 300 Mg Cap) 900 mg PO HS [facility] Stop: 06/25/25 20:59 Last Admin: 05/26/25 20:57 Dose: 900 mg Documented By: TOMAS Gabapentin (Gabapentin 300 Mg Cap) 300 mg PO BID17 [facility] Stop: 06/25/25 08:59 Last Admin: 05/27/25 07:54 Dose: 300 mg Documented By: Admin: 05/26/25 18:36 Dose: 300 mg Documented By: Admin: 05/26/25 09:55 Dose: 300 mg Documented By: SHAKILA Oxycodone HCl (Oxycodone Hcl Ir 5 Mg Tab (Immediate Release)) 10 mg PO Q3H PRN PRN Reason: Severe Pain (Scale 7, 8, 9,10) Stop: 06/09/25 07:57 Last Admin: 05/27/25 11:54 Dose: 10 mg Documented By: Admin: 05/26/25 20:56 Dose: 10 mg Documented By: Admin: 05/26/25 16:48 Dose: 10 mg Documented By: Admin: 05/26/25 11:02 Dose: 10 mg Documented By: SHAKILA Umeclidinium/Vilanterol (Umeclidinium/Vilanterol 62.5/25mcg 7 Puffs/Inhaler) 1 puffs INH DAILY GRAHAM Stop: 06/25/25 08:59 Last Admin: 05/27/25 07:55 Dose: 1 puffs Documented By: Admin: 05/26/25 08:10 Dose: 1 puffs Documented By: SHAKILA Discontinued Medications Cyclobenzaprine HCl (Cyclobenzaprine Hcl 5 Mg Tab) 5 mg PO TID GRAHAM Stop: 06/25/25 08:59 Last Admin: 05/26/25 09:55 Dose: 5 mg Documented By: SHAKILA Dexamethasone Sodium Phosphate (DexamethasonePf 10 Mg/Ml Vial) 10 mg IV NOW ONE Stop: 05/25/25 19:34 Last Admin: 05/25/25 19:47 Dose: 10 mg Documented By: NANDA Hydromorphone HCl (Hydromorphone Inj 0.5 Mg/0.5 Ml Syr) 0.5 mg IV Q4H PRN PRN Reason: Severe Pain (Scale 7, 8, 9,10) Stop: 06/09/25 02:11 Last Admin: 05/26/25 06:30 Dose: 0.5 mg Documented By: THONG Ketorolac Tromethamine (Ketorolac Tromethamine 15 Mg/Ml Vial) 15 mg IV NOW STA Stop: 05/25/25 19:34 Last Admin: 05/25/25 19:47 Dose: 15 mg Documented By: NANDA Oxycodone HCl (Oxycodone Hcl Ir 5 Mg Tab (Immediate Release)) 5 mg PO NOW STA Stop: 05/25/25 19:37 Last Admin: 05/25/25 19:47 Dose: 5 mg Documented By: NANDA Oxycodone HCl (Oxycodone Hcl Ir 5 Mg Tab (Immediate Release)) 5 mg PO Q6H PRN PRN Reason: Mod-Sev Pain (Scale 4-10) Stop: 06/09/25 02:11 Last Admin: 05/26/25 02:42 Dose: 5 mg Documented By: THONG Discharge Plan Visit Data Chief Complaint: Back Injury/Pain Stated Complaint: BACK PAIN ED Provider: Juan Mayer ED Midlevel Provider: Jeannie Raphael Discharge Problem: Back pain, Intractable back pain Patient Disposition: Admitted As Inpatient Condition: Fair Discharge Instructions Interventions: ED Discharge Assessment Last Done: 05/26/25 01:37 Discharge Problem: Back pain Qualifiers: Back pain location: low back pain Chronicity: acute Back pain laterality: right Sciatica presence: with sciatica Sciatica laterality: sciatica of right side Q ualified Code(s): M54.41 - Lumbago with sciatica, right side
[2025-05-25] MEDS: dexAMETHasone**PF** 10 MG/ML VIAL IV ONE (19:47)
[2025-05-25] MEDS: KETOROLAC TROMETHAMINE 15 MG/ML VIAL IV STA (19:47)
[2025-05-25 19:57] LABS: Hematocrit (blood only) 46.0 % (42.0-52.0); Hemoglobin 16.0 g/dl (14.0-18.0); Immature Granulocytes # (auto) 0.05 K/uL (0.01-0.20); Immature Granulocytes % (auto) 0.5 %; Mean Corpuscular Hemoglobin 29.7 pg (25.0-34.0); Mean Corpuscular Volume 85.5 fL (80.0-100.0); Platelet Count 269 K/uL (130-400); RDW Standard Deviation 38.8 fL (36.4-46.3); Red Blood Count 5.38 M/uL (4.70-6.10); White Blood Count 10.65 K/ul (4.8-10.8)
[2025-05-25 20:15] LABS: Alanine Aminotransferase 28 U/L (7-52); Albumin Globulin Ratio 1.2 (0.9-2); Alkaline Phosphatase 88 U/L (34-104); Anion Gap 8 (3-11); Bilirubin,Total 0.3 mg/dl (0.2-1.0); Blood Urea Nitrogen 14 mg/dl (6-23); Calcium 9.1 mg/dl (8.6-10.3); Carbon Dioxide 23 mmol/L (21-32); Chloride 106 mmol/L (98-107); Globulin 3.2 gm/dl (2.5-4.0); Glucose 127 mg/dl (70-99(Fasting)); Potassium 3.7 mmol/L (3.5-5.1); Sodium 137 mmol/L (136-145); Total Protein 7.1 gm/dl (6.0-8.3)
--- NOTE | 2025-05-25 22:27 | Magnetic Resonance Report ---
Exam(s): MRI L SPINE Without Contrast EXAM: MR Lumbar Spine Without Intravenous Contrast CLINICAL HISTORY: Reason for exam: lumbar back pain, right leg numbness tingling. TECHNIQUE: Magnetic resonance images of the lumbar spine without intravenous contrast in multiple planes. COMPARISON: Prior MRI of the lumbar spine from November 20, 2024. FINDINGS: Vertebrae: There are 5 lumbar type vertebral bodies with a mild generalized curved to the right and shallow lumbar lordosis. There is normal vertebral body height and alignment. The bone marrow signal is heterogeneous with reactive endplate changes and areas of focal fat or venous malformations.. No acute fracture. Spinal cord: The conus is normal size, shape and signal characteristics, terminating at T12-L1. Soft tissues: Moderate atrophy of the iliopsoas, paraspinous intraspinous musculature. The aorta and IVC flow voids are intact. Tiny left renal cyst. DISCS/SPINAL CANAL/NEURAL FORAMINA: L1-L2: The intervertebral disc is normal. L2-L3: There is mild disc degeneration with annular disc bulge causing a mild subarticular recess stenosis with disc extending to the neural foramina without evidence of impingement or significant stenosis. L3-L4: Moderate disc degeneration with annular disc bulge causing a mild subarticular recess stenosis with disc and osteophyte extending to the neural foramina causing mild bilateral stenosis without evidence of neural impingement. L4-L5: Moderate disc degeneration with annular disc bulge causing a severe right and moderate left subarticular recess stenosis with impingement of the transiting L5 nerve roots with superimposed congenitally short pedicles causing a moderate spinal canal stenosis with thecal sac area measuring 0.72 cm². There is disc and osteophyte extending to the neural foramina without evidence of impingement or significant stenosis. L5-S1: Advanced disc degeneration with annular disc bulge causing a mild subarticular recess stenosis with disc and osteophyte extending to the neural foramina causing mild bilateral stenosis without evidence of neural impingement. IMPRESSION: 1. Advanced disc degeneration at L5-S1: Moderate disc degeneration at L3- 4, L4-5, and mild disc degeneration at L2-3 with annular disc bulging causing a mild subarticular recess stenosis at L2-3, L3-4, L5-S1 and a severe right and moderate left subarticular recess stenosis at L4-5 impinging the transiting L5 nerve roots. 2. There is a moderate spinal canal stenosis at L4-5. 3. There is mild bilateral L3-4 and mild bilateral L5-S1 neuroforaminal stenoses without evidence of neural impingement. 4. No evidence of fracture, infection, tumor or arachnoiditis. Note: Compared to the prior lumbar spine MRI from November 20, 2024, there has been no significant change. Electronically signed by: Puja Peterson MD 05/25/25 22:26 PM
--- NOTE | 2025-05-26 00:52 | History & Physical Report ---
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 Patient has ongoing back pain for some time. Had epidural shot on May 09, 2025 but states it did not help his pain much. Today the pain was very severe could not ambulate. The pain is shooting down his right leg. Right leg is numb and heavy. Could not fully lift the right leg. Denies any bowel or bladder incontinence. Denies any fevers. Denies any headache. No cough. No chest pain or shortness breath. No nausea. No abdominal pain. Normal bowel and bladder movements. Hemodynamics are okay. Severe back pain Lumbar radiculopathy Pain shooting down right leg Right leg is numb and heavy and having painful movements ER spoke to orthospine and recommended admission MRI lumbar spine:1. Advanced disc degeneration at L5-S1: Moderate disc degeneration at L3- 4, L4-5, and mild disc degeneration at L2-3 with annular disc bulging causing a mild subarticular recess stenosis at L2-3, L3-4, L5-S1 and a severe right and moderate left subarticular recess stenosis at L4-5 impinging the transiting L5 nerve roots. 2. There is a moderate spinal canal stenosis at L4-5. 3. There is mild bilateral L3-4 and mild bilateral L5-S1 neuroforaminal stenoses without evidence of neural impingement. 4. No evidence of fracture, infection, tumor or arachnoiditis. Pain control Orthospine consult in a.m. Prediabetes Will follow HbA1c levels 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 History of DVT On Eliquis. History of hyperlipidemia Patient not taking statin History of nonobstructive CAD Patient not taking statin On Eliquis DVT prophylaxis On Eliquis Disposition Medical floor Full code. 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 Patient has ongoing back pain for some time. Had epidural shot on May 09, 2025 but states it did not help his pain much. Today the pain was very severe could not ambulate. The pain is shooting down his right leg. Right leg is numb and heavy. Could not fully lift the right leg. Denies any bowel or bladder incontinence. Denies any fevers. Denies any headache. No cough. No chest pain or shortness breath. No nausea. No abdominal pain. Normal bowel and bladder movements. Hemodynamics are okay. Past medical history. As mentioned above. Past surgical history. Cardiac cath. Colonoscopy. EGD. Laparoscopic inguinal hernia repair. Laparoscopic appendectomy. Social history. . Quit smoking 2009. Smokes 0.5 pack a day for 25 years. Alcohol rare. No drug use. Family history. Brother had a clotting disorder. Father had clotting disorder. Maternal grandfather diabetes. Maternal grandmother had glaucoma. Allergies Allergy/AdvReac Type Severity Reaction Status Date / Time morphine Allergy Intermediate CHEST Verified 05/25/25 23:15 TIGHTNESS Home Medications Medication Instructions Recorded Confirmed Type walker (Ultra-Light Rollator misc) #1 ea 12/01/24 05/09/25 Rx albuterol sulfate 90 mcg/actuation 2 puff inhalation Q6H PRN 12/08/24 05/25/25 Rx aerosol inhaler shortness of breath or wheezing #3 Inhalers umeclidinium 62.5 mcg-vilanterol 1 inh inhalation DAILY 90 days #90 12/08/24 05/25/25 Rx 25 mcg/actuation powdr for puffs inhalation (Anoro Ellipta) apixaban 5 mg tablet (Eliquis) 5 mg PO BID #180 tabs 05/23/25 05/25/25 Rx gabapentin 300 mg capsule 900 mg PO HS 05/25/25 05/25/25 History Past Med/Surg History Problem List (Updated 05/26/25 @ 00:49 by Fran England MD) Severe back pain Lumbar radiculopathy Herniated lumbar disc without myelopathy Coronary artery disease Obesity (BMI 30-39.9) Abnormal ECG Bradycardia Dyspnea on exertion Dyspnea and respiratory abnormalities Pre-syncope Pre-procedural examination DVT (deep venous thrombosis) Pulmonary embolism Right ventricular dilation Nocturnal hypoxemia Headache Sleep apnea Pulmonary infarction Hyperhomocysteinemia COVID-19 ruled out Discharge planning issues DVT prophylaxis Acute saddle pulmonary embolism (Acute) Acute deep vein thrombosis (DVT) of right lower extremity (Acute) Elevated troponin I level (Acute) Elevated troponin Saddle pulmonary embolus Dyslipidemia History of cardiac cath Non-cardiac chest pain (Acute) Medical History Pneumonia Surgical History History of appendectomy Family History Brother Deep vein thrombosis Grandfather (Maternal) Diabetes Mother Coronary heart disease Social History Smoking Status: Never smoker Tobacco Type: Cigarettes Age Started Using Tobacco: 14; Age Quit Using Tobacco: 34; packs per day: 1; Do You Dip or Chew Tobacco: No; Hx Alcohol Use: Yes Alcohol type: beer Alcohol Intake Frequency: Monthly or Less Hx Substance Use: No Preferred Language: Tristanian Communication Ability: Effective Sound Effects Person Required: No Beliefs That Will Affect Care: None marital status: Current Living Situation: Spouse Other Information That Helps Us Care for You: No Feels Safe at Home: Yes Safety Concerns: Feels Safe At This Time Assistive Devices: Walker Review of Systems Review of Systems: All systems reviewed & are unremarkable except as noted in HPI & below Physical Exam Physical Exam: General- Not in distress Head- atraumatic Eyes- PERRL. ENT- oropharynx clear Neck- supple, no JVD. Lungs- clear to auscultation no wheezing or crackles Heart- regular rhythm; no murmur, no gallop. Abdomen- normal bowel sounds, soft, nontender, no distension Extremities- no pretibial edema, no erythema seen Neuro- alert, oriented PERRL, no facial palsy; no dysarthria; moves extremities. Musculoskeletal; painful right leg movement. Straight leg raise test right leg positive. Results & Data Results & Data Vital Signs (Past 12 Hours) Vital Signs Temp Pulse Pulse Resp BP BP Pulse Ox 05/25/25 23:00 36.6 C 69 18 130/70 93 05/25/25 21:08 60 16 128/73 93 05/25/25 19:18 36.6 C 75 18 154/72 H 97 O2 Del Method 05/25/25 23:00 Room Air 05/25/25 21:08 Room Air 05/25/25 19:18 Room Air Diagnostic Findings Laboratory Results WBC 10.65 K/ul (4.8-10.8) 05/25/25 19:47 RBC 5.38 M/uL (4.70-6.10) 05/25/25 19:47 Hgb 16.0 g/dl (14.0-18.0) 05/25/25 19:47 Hct 46.0 % (42.0-52.0) 05/25/25 19:47 MCV 85.5 fL (80.0-100.0) 05/25/25 19:47 MCH 29.7 pg (25.0-34.0) 05/25/25 19:47 MCHC 34.8 g/dL (32.0-36.0) 05/25/25 19:47 RDW Std Deviation 38.8 fL (36.4-46.3) 05/25/25 19:47 RDW Coeff of Taurus 12.6 % (11.5-14.5) 05/25/25 19:47 Plt Count 269 K/uL (130-400) 05/25/25 19:47 MPV 10.0 fL (9.4-12.4) 05/25/25 19:47 Immature Gran % (Auto) 0.5 % 05/25/25 19:47 Neut % (Auto) 63.2 % 05/25/25 19:47 Lymph % (Auto) 27.1 % 05/25/25 19:47 Parmer % (Auto) 6.2 % 05/25/25 19:47 Eos % (Auto) 2.5 % 05/25/25 19:47 Baso % (Auto) 0.5 % 05/25/25 19:47 Neut # (Auto) 6.73 K/uL (1.40-6.50) H 05/25/25 19:47 Lymph # (Auto) 2.89 K/uL (1.20-3.40) 05/25/25 19:47 Parmer # (Auto) 0.66 K/uL (0.11-0.59) H 05/25/25 19:47 Eos # (Auto) 0.27 K/uL (0.00-0.50) 05/25/25 19:47 Baso # (Auto) 0.05 K/uL (0.00-0.20) 05/25/25 19:47 Immature Gran # (Auto) 0.05 K/uL (0.01-0.20) 05/25/25 19:47 Sodium 137 mmol/L (136-145) 05/25/25 19:47 Potassium 3.7 mmol/L (3.5-5.1) 05/25/25 19:47 Chloride 106 mmol/L (98-107) 05/25/25 19:47 Carbon Dioxide 23 mmol/L (21-32) 05/25/25 19:47 Anion Gap 8 (3-11) 05/25/25 19:47 BUN 14 mg/dl (6-23) 05/25/25 19:47 Creatinine 1.43 mg/dl (0.6-1.4) H 05/25/25 19:47 Est Cr Clr Drug Dosing Not Reportable 05/25/25 19:47 eGFR 57.86 05/25/25 19:47 BUN/Creatinine Ratio 9.8 (10-20) L 05/25/25 19:47 Glucose 127 mg/dl (70-99(Fasting)) H 05/25/25 19:47 Calcium 9.1 mg/dl (8.6-10.3) 05/25/25 19:47 Total Bilirubin 0.3 mg/dl (0.2-1.0) 05/25/25 19:47 AST 19 U/L (13-39) 05/25/25 19:47 ALT 28 U/L (7-52) 05/25/25 19:47 Alkaline Phosphatase 88 U/L (34-104) 05/25/25 19:47 Total Protein 7.1 gm/dl (6.0-8.3) 05/25/25 19:47 Albumin 3.9 gm/dl (3.4-5.0) 05/25/25 19:47 Globulin 3.2 gm/dl (2.5-4.0) 05/25/25 19:47 Albumin/Globulin Ratio 1.2 (0.9-2) 05/25/25 19:47 Impressions Lumbar Spine MRI 05/25/25 19:33 Exam(s): MRI L SPINE Without Contrast EXAM: MR Lumbar Spine Without Intravenous Contrast CLINICAL HISTORY: Reason for exam: lumbar back pain, right leg numbness tingling. TECHNIQUE: Magnetic resonance images of the lumbar spine without intravenous contrast in multiple planes. COMPARISON: Prior MRI of the lumbar spine from November 20, 2024. FINDINGS: Vertebrae: There are 5 lumbar type vertebral bodies with a mild generalized curved to the right and shallow lumbar lordosis. There is normal vertebral body height and alignment. The bone marrow signal is heterogeneous with reactive endplate changes and areas of focal fat or venous malformations.. No acute fracture. Spinal cord: The conus is normal size, shape and signal characteristics, terminating at T12-L1. Soft tissues: Moderate atrophy of the iliopsoas, paraspinous intraspinous musculature. The aorta and IVC flow voids are intact. Tiny left renal cyst. DISCS/SPINAL CANAL/NEURAL FORAMINA: L1-L2: The intervertebral disc is normal. L2-L3: There is mild disc degeneration with annular disc bulge causing a mild subarticular recess stenosis with disc extending to the neural foramina without evidence of impingement or significant stenosis. L3-L4: Moderate disc degeneration with annular disc bulge causing a mild subarticular recess stenosis with disc and osteophyte extending to the neural foramina causing mild bilateral stenosis without evidence of neural impingement. L4-L5: Moderate disc degeneration with annular disc bulge causing a severe right and moderate left subarticular recess stenosis with impingement of the transiting L5 nerve roots with superimposed congenitally short pedicles causing a moderate spinal canal stenosis with thecal sac area measuring 0.72 cm². There is disc and osteophyte extending to the neural foramina without evidence of impingement or significant stenosis. L5-S1: Advanced disc degeneration with annular disc bulge causing a mild subarticular recess stenosis with disc and osteophyte extending to the neural foramina causing mild bilateral stenosis without evidence of neural impingement. IMPRESSION: 1. Advanced disc degeneration at L5-S1: Moderate disc degeneration at L3- 4, L4-5, and mild disc degeneration at L2-3 with annular disc bulging causing a mild subarticular recess stenosis at L2-3, L3-4, L5-S1 and a severe right and moderate left subarticular recess stenosis at L4-5 impinging the transiting L5 nerve roots. 2. There is a moderate spinal canal stenosis at L4-5. 3. There is mild bilateral L3-4 and mild bilateral L5-S1 neuroforaminal stenoses without evidence of neural impingement. 4. No evidence of fracture, infection, tumor or arachnoiditis. Note: Compared to the prior lumbar spine MRI from November 20, 2024, there has been no significant change. Electronically signed by: Puja Peterson MD 05/25/25 22:26 PM Code Status & VTE Plan VTE Prophylaxis Plan VTE Prophylaxis will be ordered: Yes
[2025-05-26] MEDS ORDERED: ALBUTEROL HFA 8 GM INHALER INH PRN (02:12)
[2025-05-26] MEDS ORDERED: POLYETHYLENE (MIRALAX) 17 GM PACK PO PRN (02:12)
[2025-05-26] MEDS ORDERED: ACETAMINOPHEN 325 MG TAB PO PRN (02:12)
[2025-05-26 06:00] LABS: Hematocrit (blood only) 46.7 % (42.0-52.0); Hemoglobin 16.2 g/dl (14.0-18.0); Immature Granulocytes # (auto) 0.08 K/uL (0.01-0.20); Immature Granulocytes % (auto) 0.7 %; Mean Corpuscular Hemoglobin 29.7 pg (25.0-34.0); Mean Corpuscular Volume 85.7 fL (80.0-100.0); Platelet Count 271 K/uL (130-400); RDW Standard Deviation 38.7 fL (36.4-46.3); Red Blood Count 5.45 M/uL (4.70-6.10); White Blood Count 10.75 K/ul (4.8-10.8)
[2025-05-26 06:23] LABS: Anion Gap 7.0 (3-11); Blood Urea Nitrogen 20.0 mg/dl (6-23); Calcium 9.1 mg/dl (8.6-10.3); Carbon Dioxide 23.0 mmol/L (21-32); Chloride 105.0 mmol/L (98-107); Creatinine Clr Calc Pharmacy 77.2 ml/min; Glucose 159.0 mg/dl (70-99(Fasting)); Magnesium 2.1 mg/dl (1.7-2.4); Potassium 4.7 mmol/L (3.5-5.1); Sodium 135.0 mmol/L (136-145)
[2025-05-26] MEDS: HYDROmorphone INJ 0.5 MG/0.5 ML SYR IV PRN (06:30)
[2025-05-26] MEDS: APIXABAN 5 MG TABLET PO SCH (08:10)
[2025-05-26] MEDS: UMECLIDINIUM/VILANTEROL 62.5/25MCG 7 PUFFS/INHALER INH SCH (08:10)
[2025-05-26] MEDS ORDERED: dexAMETHasone 8 MG in SYRINGE 0 ML IV SCH (09:00)
--- NOTE | 2025-05-26 09:18 | Orthopedic Consultation ---
Date of Service May 26, 2025 Assessment & Plan (1) Lumbar radiculopathy: (2) Lumbar stenosis without neurogenic claudication: (3) Lumbar spondylosis: Plan Discussed the imaging findings and likely pain generators with the patient today at bedside. He voiced understanding, and received calls that when he met Dr. Adams in the office he decided he would like to proceed with the least invasive route and trial of the injections which is certainly a reasonable plan. Unfortunately has not had significant relief with the injection, he has been started on oral steroid with an increase in his gabapentin dose. He will try to mobilize with physical therapy, states he would like to go home later today as long as the pain is well-controlled. He does some remaining paresthesias of the right lower extremity however I expect these to hopefully improve with the steroid to dose. Should you decide to go home later today he knows to call the office on Wednesday to get scheduled with Dr. Adams to possibly discuss surgery in the future. If he is unable to return home today and does not progress with physical therapy, would be reasonable to keep him for continued pain control. In the event he would wish to have surgery, I informed him he would need to be off the Eliquis for several days due to increased bleeding risk. No urgent neurologic deficits to warrant an emergent surgery on blood thinners. I will discuss the case with Dr. Adams when he returns to [facility], I will remain available throughout the weekend should any changes occur however today he is slightly improved. Will reevaluate tomorrow if he is still here, and if not improving will need to discuss with hospitalist whether or not it is reasonable to hold his Eliquis for a few days as he does have history of a chronic saddle embolus in his lungs. Mobilize with PT, maximize gabapentin, okay for discharge if he is ambulatory and pain controlled for follow-up in the office with Dr. Adams. History of Present Illness Reason for Consultation: Low back, right leg pain Attending Physician: Rajiv Ardon DO Patient is a 54-year-old gentleman who has been seen by my partner Dr. Adams in the past. He was referred to [facility] pain management where he has undergone several epidural injections for right lower extremity radicular pain. Most recent injection was May 09, he does not report any significant lasting relief from that injection. Yesterday he slipped in the shower, no fall or injury however he did experience a flareup of the low back pain radiating into the right lower extremity. He began doing some stretches and was okay for a few hours however by yesterday evening pain was unbearable and he presented to the emergency department. He was given IV steroids, Toradol and gabapentin which he is on chronically. This morning his pain is somewhat improved, reports that he still has paresthesias of the right lower extremity and it feels heavy however he is able to move everything, no significant pain at rest. No change in bowel or bladder function. Allergies Allergy/AdvReac Type Severity Reaction Status Date / Time morphine Allergy Intermediate CHEST Verified 05/25/25 23:15 TIGHTNESS Home Medications Medication Instructions Recorded Confirmed Type walker (Ultra-Light Rollator misc) #1 ea 12/01/24 05/09/25 Rx albuterol sulfate 90 mcg/actuation 2 puff inhalation Q6H PRN 12/08/24 05/25/25 Rx aerosol inhaler shortness of breath or wheezing #3 Inhalers umeclidinium 62.5 mcg-vilanterol 1 inh inhalation DAILY 90 days #90 12/08/24 05/25/25 Rx 25 mcg/actuation powdr for puffs inhalation (Anoro Ellipta) apixaban 5 mg tablet (Eliquis) 5 mg PO BID #180 tabs 05/23/25 05/25/25 Rx gabapentin 300 mg capsule 900 mg PO HS 05/25/25 05/25/25 History Past Med/Surg History Problem List (Updated 05/26/25 @ 09:13 by Andrew Moise MD) Lumbar spondylosis Lumbar stenosis without neurogenic claudication Severe back pain Lumbar radiculopathy Herniated lumbar disc without myelopathy Coronary artery disease Obesity (BMI 30-39.9) Abnormal ECG Bradycardia Dyspnea on exertion Dyspnea and respiratory abnormalities Pre-syncope Pre-procedural examination DVT (deep venous thrombosis) Pulmonary embolism Right ventricular dilation Nocturnal hypoxemia Headache Sleep apnea Pulmonary infarction Hyperhomocysteinemia COVID-19 ruled out Discharge planning issues DVT prophylaxis Acute saddle pulmonary embolism (Acute) Acute deep vein thrombosis (DVT) of right lower extremity (Acute) Elevated troponin I level (Acute) Elevated troponin Saddle pulmonary embolus Dyslipidemia History of cardiac cath Non-cardiac chest pain (Acute) Medical History Pneumonia Surgical History History of appendectomy Family History Brother Deep vein thrombosis Grandfather (Maternal) Diabetes Mother Coronary heart disease Social History Smoking Status: Never smoker Tobacco Type: Cigarettes Age Started Using Tobacco: 14; Age Quit Using Tobacco: 34; packs per day: 1; Do You Dip or Chew Tobacco: No; Hx Alcohol Use: Yes Alcohol type: beer Alcohol Intake Frequency: Monthly or Less Hx Substance Use: No Preferred Language: Japanese Communication Ability: Effective M48/M60 Tank Driver Required: No Beliefs That Will Affect Care: None marital status: Current Living Situation: Spouse Other Information That Helps Us Care for You: No Feels Safe at Home: Yes Safety Concerns: Feels Safe At This Time Assistive Devices: Walker Review of Systems All systems reviewed & are unremarkable except as noted in HPI & below. Physical Exam Constitutional: Well developed, appears stated age Psych: patient is coherent and answers questions appropriately, normal affect Eye: Normal gaze, no redness to sclera, pupils round and equal Pulm: Normal respiratory effort, no wheezing Cardiovascular: no significant peripheral edema, palpable DP/PT pulses Skin shows no rashes, lesions Motor strength is 5/5 in left hip flexors, quadriceps, tibialis anterior, extensor hallucis longus, and gastroc/soleus complex Motor strength is 4 out of 5 in right hip flexor, right quadriceps, right tibialis anterior, right EHL and right gastrocsoleus complex likely due to hesitation due to the pain experience with movement rather than neurologic deficit Sensation intact to light touch in the L2-S1 dermatomes on the left, he reports diffuse paresthesias to the right lower extremity most consistent with L5 and S1 dermatome Results & Data Results & Data Laboratory Results . Diagnostic Findings MRI of the lumbar spine was available for review today and interpreted personally. Multiple levels of disc degeneration at L3-4, L4-5 and L5-S1. L3-4 shows a disc bulge however no significant central canal lateral recess or foraminal stenosis. At the L4-5 level he has considerable facet arthropathy which creates moderate lateral recess stenosis likely compression of the traversing L5 nerve root, no severe foraminal stenosis is noted at this level. L5-S1 again shows disc degeneration and bulging disc, right-sided protrusion contacting the S1 traversing nerve root, no severe foraminal stenosis is noted. Mild central canal stenosis however plenty of CSF surrounding the nerve roots of the cauda equina. PG Care Time/CCT Total # of Minutes Spent Total Time Spent with Patient: Total time spent is greater than 50% in coordination of care (as documented) at patient's floor/unit and/or counseling patient: Coding Level of Care Code 06633 IN/OBS CONSULT LVL 3,45M Diagnoses Lumbar radiculopathy M54.16 Lumbar stenosis without neurogenic claudication M48.061 Lumbar spondylosis M47.816
[2025-05-26] MEDS: CYCLOBENZAPRINE HCL 5 MG TAB PO SCH (09:55)
[2025-05-26] MEDS: GABAPENTIN 300 MG CAP PO SCH ×2 (09:55→20:57)
[2025-05-26] MEDS ORDERED: ENOXAPARIN 1 MG/KG SC SCH (12:00)
--- NOTE | 2025-05-26 12:07 | Hospitalist Progress Note ---
Date of Service May 26, 2025 Assessment & Plan (1) Lumbar stenosis with neurogenic claudication: (2) 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 with discogenic back pain and leg pain: (3) Obesity (BMI 30-39.9): (4) Sleep apnea: (5) Chronic thromboembolic disease: (6) Chronic anticoagulation: Plan Patient with acute exacerbation of his chronic lumbar stenosis and degenerative disc disease with radicular symptoms down his right leg. Aggressively manage his symptoms with oral medications, scheduled muscle relaxer, steroid, Tylenol, increase Neurontin dosing. As needed oxycodone for more significant pain Reviewed orthopedic recommendations. Surgery still may be a possibility but no indication for emergent surgery especially in the setting of Eliquis use Conversation with the patient, he is concerned that the spinal injections are not being helpful and may need to have surgical intervention. Discussed with him holding his Eliquis as he may end up going to the OR sometime within the next several days. He is agreeable to this. Will start him on Lovenox t herapeutic dosing with his history of recurrent thromboembolic disease. This can be then held the day before anticipated surgery. Encouraged activity as tolerated Patient's glucose slightly elevated, suspect due to steroids, check hemoglobin A1c Family at bedside updated and agreeable to plan of care as well Admission and Anticipated Discharge Date Admission Date: May 25, 2025 Subjective Patient still with significant amounts of back pain especially with changing of position. Describes significant paresthesias and radiculopathy down right lower leg with right foot drop. Physical Exam Physical Exam: Constitutional: Alert, nontoxic, mild distress secondary to pain HEENT: Mucous membranes moist. Lungs: Clear to auscultation, decreased, no wheezes rales or rhonchi CV: S1-S2, regular Abdomen: Soft, nontender, nondistended Extremities: No significant edema Neuro: Paresthesias right lower extremity Psych: Cooperative, normal mood Results & Data Results & Data Vital Signs (Past 12 Hours) Vital Signs Temp Pulse Pulse Resp BP BP Pulse Ox 05/26/25 07:42 36.6 C 62 18 143/78 H 92 05/26/25 02:30 36.5 C 56 L 18 133/81 93 05/26/25 02:12 36.5 C 56 L 18 133/81 93 05/26/25 01:37 77 20 134/76 93 05/26/25 01:29 72 18 133/80 92 O2 Del Method 05/26/25 07:42 Room Air 05/26/25 02:30 Room Air 05/26/25 02:12 Room Air 05/26/25 01:37 Room Air 05/26/25 01:29 Room Air Diagnostic Findings Reviewed imaging, laboratory and diagnostic studies. Pertinent findings as below. CBC stable Sodium 135 Glucose 159
[2025-05-26] MEDS: ENOXAPARIN INJ 120 MG/0.8 ML SYR SQ SCH (13:04)
[2025-05-26] MEDS: ACETAMINOPHEN 500 MG TAB PO SCH (14:36)
[2025-05-26] MEDS: CYCLOBENZAPRINE HCL 10 MG TAB PO SCH (15:00)
[2025-05-27 07:36] LABS: Anion Gap 8.0 (3-11); Calcium 9.1 mg/dl (8.6-10.3); Carbon Dioxide 25.0 mmol/L (21-32); Chloride 103.0 mmol/L (98-107); Potassium 4.5 mmol/L (3.5-5.1); Sodium 136.0 mmol/L (136-145)
[2025-05-27 07:42] LABS: Blood Urea Nitrogen 25.0 mg/dl (6-23); Creatinine Clr Calc Pharmacy 82.3 ml/min; Glucose 146.0 mg/dl (70-99(Fasting))
[2025-05-27 08:09] LABS: Hemoglobin A1C 6.5 % (4.5-5.6)
--- NOTE | 2025-05-27 13:20 | Orthopedic Progress Note ---
Date of Service May 27, 2025 Assessment & Plan (1) Lumbar radiculopathy: (2) Lumbar stenosis without neurogenic claudication: (3) Lumbar spondylosis: Plan With the patient having failed to improve thus far during his inpatient stay, it seems that he is referring to discuss his surgical options with Dr. Adams. Patient understands that he is not back in town until later tonight, so he would not be able to park with him until sometime tomorrow. It certainly seems reasonable that if the patient is truly experiencing 10/10 pain with movement during PT, that surgical intervention is an option during his stay. The oral steroids and increase in gabapentin dose while he has been here have been ineffective. More recent lumbar epidural steroid injections with the pain clinic have been rather ineffective as well. Patient continues to report paresthesias and numbness in the right lower extremity, which have failed to improve thus far. He is now seemingly reporting new anterior thigh and lower leg symptoms that he says were not present yesterday. He is also stating that he feels like his hips and waist area bilaterally are being constricted or pinched again. Patient does not think he could be discharged and try to see Dr. Adams in an outpatient setting and then set up surgery in that manner. He feels that his pain would be too great and he would be unable to perform ADLs. Would recommend that he continue to receive Lovenox instead of Eliquis in anticipation that there may be a spine surgery within the next couple of days. There continues to be no urgent neurologic deficits that would warrant emergent surgery while he is still in a washout period of his Eliquis anticoagulation. Ideally, he will need to be off of the Eliquis for another 48 hours or so prior to surgery. And then, the Lovenox should be held for 12 to 24 hours prior to surgery. Of note, the patient does state that he has had a "blood clot" in his right lower extremity for several years now, in addition to the chronic pulmonary saddle embolus. Continue to mobilize with PT, and can consider further increase in gabapentin dose. If the patient does have significant improvement with pain and ability to ambulate and mobilize, he would be okay for discharge. However, it seems at this point that it is best he remain inpatient and discuss his surgical option with Dr. Adams tomorrow. Subjective Patient says that he feels he is not doing any better than yesterday. He has not noted any improvement in his pain level since being on the Decadron oral steroids, as well as the muscle relaxer and oxycodone. PT reports that the patient was stating 10 out of 10 pain with movement during their session earlier today. Upon inquiry with him about reporting this level of pain, he does agree that his pain was very severe with attempting therapy. He continues to note numbness in his right foot. Patient states pain and paresthesia down the right posterior lateral and anterior thigh and lower leg, then into the foot/toes. He says that the anterior pain is new since yesterday. He is having trouble just getting to the restroom and back. He says that they stopped his Eliquis yesterday in anticipation that Dr. Adams might be able to do a surgery for him this week. Due to his inability to improve thus far, the patient feels that he is leaning towards preferring surgery while he is currently inpatient. At this point, the patient wishes to speak with Dr. Adams tomorrow sometime. Review of Systems All systems reviewed & are unremarkable except as noted in HPI & below. Physical Exam GENERAL: Speech and cognition is intact. Mood and affect is appropriate. Does not appear in acute distress. Lying in bed and appears relatively comfortable. HEAD: Normocephalic; atraumatic. NECK: Trachea is midline. CHEST: Regular chest respiration and excursion. EXTREMITIES: Distal sensation and pulses intact bilaterally. NEURO: CN II-XII grossly intact with no focal deficits noted. Gait not evaluated. Awake, alert, and oriented x 3. Sensation intact to light touch of the bilateral L2-S1 dermatomes; mildly diminished sensation to right foot, predominantly L5 and S1 dermatomes. SKIN: No lesions, erythema, or rashes noted. LOWER EXTREMITIES: R Hip flexion 4+/5; hip extension 4+/5; knee extension 4/5; knee flexion 4/5; ankle dorsiflexion 4/5; ankle plantar flexion 4+/5; EHL 4/5 (testing seems to be limited secondary to pain and apprehension) L Hip flexion 5/5; hip extension 5/5; knee extension 5/5; knee flexion 5/5; ankle dorsiflexion 5/5; ankle plantar flexion 5/5; EHL 5/5 Results & Data Results & Data Laboratory Results . Diagnostic Findings Lumbar Spine MRI 05/25/25 19:33 Exam(s): MRI L SPINE Without Contrast EXAM: MR Lumbar Spine Without Intravenous Contrast CLINICAL HISTORY: Reason for exam: lumbar back pain, right leg numbness tingling. TECHNIQUE: Magnetic resonance images of the lumbar spine without intravenous contrast in multiple planes. COMPARISON: Prior MRI of the lumbar spine from November 20, 2024. FINDINGS: Vertebrae: There are 5 lumbar type vertebral bodies with a mild generalized curved to the right and shallow lumbar lordosis. There is normal vertebral body height and alignment. The bone marrow signal is heterogeneous with reactive endplate changes and areas of focal fat or venous malformations.. No acute fracture. Spinal cord: The conus is normal size, shape and signal characteristics, terminating at T12-L1. Soft tissues: Moderate atrophy of the iliopsoas, paraspinous intraspinous musculature. The aorta and IVC flow voids are intact. Tiny left renal cyst. DISCS/SPINAL CANAL/NEURAL FORAMINA: L1-L2: The intervertebral disc is normal. L2-L3: There is mild disc degeneration with annular disc bulge causing a mild subarticular recess stenosis with disc extending to the neural foramina without evidence of impingement or significant stenosis. L3-L4: Moderate disc degeneration with annular disc bulge causing a mild subarticular recess stenosis with disc and osteophyte extending to the neural foramina causing mild bilateral stenosis without evidence of neural impingement. L4-L5: Moderate disc degeneration with annular disc bulge causing a severe right and moderate left subarticular recess stenosis with impingement of the transiting L5 nerve roots with superimposed congenitally short pedicles causing a moderate spinal canal stenosis with thecal sac area measuring 0.72 cm². There is disc and osteophyte extending to the neural foramina without evidence of impingement or significant stenosis. L5-S1: Advanced disc degeneration with annular disc bulge causing a mild subarticular recess stenosis with disc and osteophyte extending to the neural foramina causing mild bilateral stenosis without evidence of neural impingement. IMPRESSION: 1. Advanced disc degeneration at L5-S1: Moderate disc degeneration at L3- 4, L4-5, and mild disc degeneration at L2-3 with annular disc bulging causing a mild subarticular recess stenosis at L2-3, L3-4, L5-S1 and a severe right and moderate left subarticular recess stenosis at L4-5 impinging the transiting L5 nerve roots. 2. There is a moderate spinal canal stenosis at L4-5. 3. There is mild bilateral L3-4 and mild bilateral L5-S1 neuroforaminal stenoses without evidence of neural impingement. 4. No evidence of fracture, infection, tumor or arachnoiditis. Note: Compared to the prior lumbar spine MRI from November 20, 2024, there has been no significant change. Electronically signed by: Puja Peterson MD 05/25/25 22:26 PM PG Care Time/CCT Total # of Minutes Spent Total Time Spent with Patient: Total time spent is greater than 50% in coordination of care (as documented) at patient's floor/unit and/or counseling patient: C[place] [address] SUB INP/OBS CARE 2/35MIN Patient Type Established History Detailed Exam Detailed Medical Decision Making Moderate Complexity Diagnoses Lumbar radiculopathy M54.16 Lumbar stenosis without neurogenic claudication M48.061 Lumbar spondylosis M47.816
--- NOTE | 2025-05-27 14:00 | Hospitalist Progress Note ---
Date of Service May 27, 2025 Assessment & Plan (1) Lumbar stenosis with neurogenic claudication: Plan: Admitted with severe back pain with radiculopathy involving the right leg Previous management with oral steroids muscle relaxant and narcotic pain medications did not show any improvement Appreciate orthospine input and recommendation for possible surgical procedure sometime next week He denies any urinary and/or bowel problem though having constipation He will be given laxatives He feels a little better today. 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 Aggressively manage his symptoms with oral medications, scheduled muscle relaxe r, steroid, Tylenol, increase Neurontin dosing. As needed oxycodone for more significant pain Reviewed orthopedic recommendations. Surgery still may be a possibility but no indication for emergent surgery especially in the setting of Eliquis use Conversation with the patient, he is concerned that the spinal injections are not being helpful and may need to have surgical intervention. Discussed with him holding his Eliquis as he may end up going to the OR sometime within the next several days. He is agreeable to this. Will start him on Lovenox therapeutic dosing with his history of recurrent thromboembolic disease. This can be then held the day before anticipated surgery. Encouraged activity as tolerated Patient's glucose slightly elevated, suspect due to steroids, check hemoglobin A1c Family at bedside updated and agreeable to plan of care as well Admission and Anticipated Discharge Date Admission Date: May 25, 2025 Subjective 05/27/2025 The patient was seen and examined in medical floor in presence of the family members His back pain is minimally controlled Complains today of constipation but has been making out urine Denies any significant weakness in any of the legs but has radiculopathic pain in the right Review of Systems Review of Systems: All systems reviewed and are unremarkable except as noted below Physical Exam Physical Exam: Lying in bed with acute distress due to ongoing back pain Constitutional: well developed, well nourished, + ill appearing and + obese Eyes: PERRL, conjunctivae normal, anicteric sclerae ENMT: external ear and nose normal, oropharynx normal Neck: trachea midline, no thyromegaly Respiratory: no respiratory distress Auscultation: lungs clear to auscultation bilaterally Cardiovascular: Rate/Rhythm: regular rate, regular rhythm and + bradycardic Heart Sounds: normal S1 and normal S2; no murmur Extremities: no edema Gastrointestinal (Abdomen): Inspection/Auscultation: normal bowel sounds; abdomen not distended Percussion/Palpation: abdomen soft; abdomen nontender Musculoskeletal: No acute arthritis involving any of the joint Neurologic: normal touch/pain/proprioception and moves all extremities; no focal motor deficits Lymphatic: no cervical or axillary lymphadenopathy Results & Data Results & Data Vital Signs (Past 12 Hours) Vital Signs Temp Pulse Resp BP Pulse Ox O2 Del Method 05/27/25 08:12 36.8 C 57 L 18 129/76 92 Room Air Laboratory Results [facility] 05/27/25 05:56 Sodium 136 Potassium 4.5 Chloride 103 Carbon Dioxide 25 BUN 25 H Creatinine 1.22 Glucose 146 H Calcium 9.1 Medications Administered Current Inpatient Medications Acetaminophen (Acetaminophen 500 Mg Tab) 1,000 mg PO Q8 GRAHAM Stop: 06/25/25 13:59 Last Admin: 05/27/25 05:31 Dose: 1,000 mg Albuterol (Albuterol Hfa 8 Gm Inhaler) 2 puffs INH Q6H PRN PRN Reason: shortness of breath or wheezing Stop: 06/25/25 02:11 Apixaban (Apixaban 5 Mg Tablet) 5 mg PO BID GRAHAM Stop: 06/25/25 08:59 Last Admin: 05/26/25 08:10 Dose: 5 mg Cyclobenzaprine HCl (Cyclobenzaprine Hcl 10 Mg Tab) 10 mg PO TID GRAHAM Stop: 06/25/25 13:59 Last Admin: 05/27/25 07:54 Dose: 10 mg Dexamethasone (Dexamethasone 4 Mg Tab) 4 mg PO TID GRAHAM Stop: 06/25/25 08:59 Last Admin: 05/27/25 07:55 Dose: 4 mg Enoxaparin Sodium (Enoxaparin Inj 120 Mg/0.8 Ml Syr) 111 mg SQ Q12 GRAHAM Stop: 06/25/25 12:14 Last Admin: 05/27/25 07:55 Dose: 111 mg Gabapentin (Gabapentin 300 Mg Cap) 900 mg PO HS GRAHAM Stop: 06/25/25 20:59 Last Admin: 05/26/25 20:57 Dose: 900 mg Gabapentin (Gabapentin 300 Mg Cap) 300 mg PO BID17 GRAHAM Stop: 06/25/25 08:59 Last Admin: 05/27/25 07:54 Dose: 300 mg Oxycodone HCl (Oxycodone Hcl Ir 5 Mg Tab (Immediate Release)) 5 mg PO Q3H PRN PRN Reason: Moderate Pain (Scale 4, 5, 6) Stop: 06/09/25 02:11 Oxycodone HCl (Oxycodone Hcl Ir 5 Mg Tab (Immediate Release)) 10 mg PO Q3H PRN PRN Reason: Severe Pain (Scale 7, 8, 9,10) Stop: 06/09/25 07:57 Last Admin: 05/27/25 11:54 Dose: 10 mg Polyethylene Glycol (Polyethylene (Miralax) 17 Gm Pack) 17 gm PO DAILY PRN PRN Reason: Constipation Stop: 06/25/25 02:11 Umeclidinium/Vilanterol (Umeclidinium/Vilanterol 62.5/25mcg 7 Puffs/Inhaler) 1 puffs INH DAILY [facility] Stop: 06/25/25 08:59 Last Admin: 05/27/25 07:55 Dose: 1 puffs More
[2025-05-27] MEDS: HYDROmorphone INJ 1 MG/ML SYRINGE IV PRN (23:24)
--- NOTE | 2025-05-28 12:41 | Hospitalist Progress Note ---
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 Mane a ester earlier this morning. Dr. Adams still reviewing plans and previous documentation determine next best steps. Unclear if any type of surgery planned this hospitalization at this point. Communication out to Dr. Adams. Subsequently, notified by nursing that patient requesting second opinion from orthospine. Consult Dr. Alvarez. Unavailable this week. Anticipate will have to work towards pain control as best as possible and continue outpatient evaluation either with [facility] orthospine versus [facility] orthospine Admission and Anticipated Discharge Date Admission Date: May 25, 2025 Subjective Patient had exacerbation of his pain overnight as he was getting up and going to the bathroom, increased pain down the right leg. Later on notified by nursing patient requesting second opinion from orthospine surgeon Physical Exam Physical Exam: Constitutional: Alert, moderate discomfort HEENT: Mucous membranes moist. Lungs: Clear to auscultation, decreased, no wheezes rales or rhonchi CV: S1-S2, regular Abdomen: Soft, nontender, nondistended Extremities: No significant edema Neuro: Paresthesias right lower extremity Psych: Cooperative, normal mood Results & Data Results & Data Vital Signs (Past 12 Hours) Vital Signs Temp Pulse Resp BP Pulse Ox O2 Del Method 05/28/25 07:40 36.5 C 51 L 18 122/74 94 Room Air
[2025-05-28] MEDS: GABAPENTIN 300 MG CAP PO SCH (17:20)
[2025-05-28] MEDS: FAMOTIDINE 20 MG TAB PO SCH (21:57)
--- NOTE | 2025-05-28 23:23 | XRay Report ---
Exam(s): XR CXR 1 VIEW EXAM: XR Chest, 1 View CLINICAL HISTORY: Reason for exam: preop risk stratification. TECHNIQUE: Frontal view of the chest. COMPARISON: 07/06/2024 FINDINGS: Lungs: Slightly prominent interstitial markings. No acute infiltrate or consolidation is seen. Pleural space: Unremarkable. No pneumothorax. Heart: Unremarkable. No cardiomegaly. Mediastinum: Unremarkable. Normal mediastinal contour. Bones/joints: Mild osteophytosis in the lower thoracic spine. No acute fracture. Upper abdomen: Unremarkable as visualized. No pneumoperitoneum under the diaphragm. IMPRESSION: No acute findings in the chest. Electronically signed by: Juan Rose MD 05/28/25 23:22 PM
[2025-05-29 00:34] LABS: Thyroid Stimulating Hormone 0.647 uIu/ml (0.300-4.500)
[2025-05-29] MEDS ORDERED: ONDANSETRON INJ 2 MG/ML 2 ML VIAL ONE (07:10)
[2025-05-29] MEDS ORDERED: GLYCOPYRROLATE 0.2 MG/ML VIAL ONE (07:10)
[2025-05-29] MEDS ORDERED: LIDOCAINE 2% 2 ML VIAL/AMP(20MG/ML) INFIL ONE (07:10)
[2025-05-29] MEDS ORDERED: PROPOFOL IV EMULSION 10 MG/ML 20 ML VIAL IV ONE (07:10)
[2025-05-29] MEDS ORDERED: MIDAZOLAM HCL 1 MG/ML 2ML VIAL ONE (07:10)
[2025-05-29] MEDS ORDERED: SUGAMMADEX SODIUM 200 MG/2 ML VIAL IV ONE (07:10)
[2025-05-29] MEDS ORDERED: ROCURONIUM BROMIDE 10 MG/ML 5 ML VIAL IV ONE (07:10)
[2025-05-29] MEDS ORDERED: DEXAMETHASONE SOD INJ 4 MG/ML VIAL ONE (07:10)
[2025-05-29] MEDS ORDERED: KETAMINE HCL 10MG/ML SYR ONE (08:04)
[2025-05-29 08:18] LABS: Hematocrit (blood only) 43.3 % (42.0-52.0); Hemoglobin 14.9 g/dl (14.0-18.0); Mean Corpuscular Hemoglobin 29.9 pg (25.0-34.0); Mean Corpuscular Volume 86.9 fL (80.0-100.0); Platelet Count 231 K/uL (130-400); RDW Standard Deviation 39.1 fL (36.4-46.3); Red Blood Count 4.98 M/uL (4.70-6.10); White Blood Count 15.40 K/ul (4.8-10.8)
--- NOTE | 2025-05-29 08:52 | Pain Management Consultation ---
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 Recommend that he continue the current medication regimen. Will sign off on the patient. Please contact with any questions or concerns. History of Present Illness Attending Physician: Rajiv Ardon, History of Present Illness This is a 54-year-old male that is known to the [facility] pain service for lumbar radiculopathy. He has previously received a right paramedian L5-S1 interlaminar epidural steroid injection as well as a right L4-L5 and L5-S1 transforaminal epidural steroid injection without any significant improvement of symptoms. He describes pain in the low back and an intermittent sharp shooting pain along the right leg to the foot. He states that standing, walking, twisting does aggravate the pain. He states that the right leg was significantly weak which has slightly improved. He is now able to ambulate with the use of a walker to get to the bathroom. Patient has previously seen Dr. Adams for surgical opinion and has also seen Dr. Moise for a second opinion. He is to to have surgery later this morning with Dr. Adams. Medication regimen includes gabapentin 600 mg twice daily, gabapentin 900 mg at bedtime, Flexeril 10 mg 3 times daily, Cymbalta 30 mg daily, Tylenol 1000 mg every 8 hours, and oxycodone 10 mg every 3 hours. He has not used IV Dilaudid in several days. There is mild constipation which is well-managed with MiraLAX. He did have a bowel movement yesterday. No bowel/bladder incontinence, saddle anesthesia, foot drop, falls. Case discussed with Dr. Donna Mckee Allergies Allergy/AdvReac Type Severity Reaction Status Date / Time morphine Allergy Intermediate CHEST Verified 05/25/25 23:15 TIGHTNESS Home Medications Medication Instructions Recorded Confirmed Type walker (Ultra-Light Rollator misc) #1 ea 12/01/24 05/09/25 Rx albuterol sulfate 90 mcg/actuation 2 puff inhalation Q6H PRN 12/08/24 05/25/25 Rx aerosol inhaler shortness of breath or wheezing #3 Inhalers umeclidinium 62.5 mcg-vilanterol 1 inh inhalation DAILY 90 days #90 12/08/24 05/25/25 Rx 25 mcg/actuation powdr for puffs inhalation (Anoro Ellipta) apixaban 5 mg tablet (Eliquis) 5 mg PO BID #180 tabs 05/23/25 05/25/25 Rx gabapentin 300 mg capsule 900 mg PO HS 05/25/25 05/25/25 History Patient History Medical History Pneumonia Surgical History History of appendectomy Family History Brother Deep vein thrombosis Grandfather (Maternal) Diabetes Mother Coronary heart disease Social History Smoking Status: Never smoker Tobacco Type: Cigarettes Age Started Using Tobacco: 14; Age Quit Using Tobacco: 34; packs per day: 1; Do You Dip or Chew Tobacco: No; Hx Alcohol Use: Yes Alcohol type: beer Alcohol Intake Frequency: Monthly or Less Hx Substance Use: No Preferred Language: Bulgarian Communication Ability: Effective 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 HEAD/FACE: Normocephalic and atraumatic. EYES: No drainage or conjunctival injection. ENT: Nose without bleeding or discharge. Oral mucosa moist. NECK: Full ROM without apparent pain. No swelling or masses noted. RESPIRATORY: Patient with unlabored breathing. No signs of respiratory distress. CHEST/AXILLA: Chest movement symmetrical. No deformities noted. ABDOMEN/GI: No distension BACK: There is increased pain when twisting. SKIN: [place], warm and dry. No rash noted. MS/EXTREMITY: No swelling, no deformities. NEURO: Alert and appears oriented. Speech is fluent. Cranial Nerves are grossly intact. PSYCH: Alert, pleasant, affect is calm Results (Pain Clinic) Diagnostic Review MRI Findings: MR Lumbar Spine Without Intravenous Contrast CLINICAL HISTORY: Reason for exam: lumbar back pain, right leg numbness tingling. TECHNIQUE: Magnetic resonance images of the lumbar spine without intravenous contrast in multiple planes. COMPARISON: Prior MRI of the lumbar spine from November 20, 2024. FINDINGS: Vertebrae: There are 5 lumbar type vertebral bodies with a mild generalized curved to the right and shallow lumbar lordosis. There is normal vertebral body height and alignment. The bone marrow signal is heterogeneous with reactive endplate changes and areas of focal fat or venous malformations.. No acute fracture. Spinal cord: The conus is normal size, shape and signal characteristics, terminating at T12-L1. Soft tissues: Moderate atrophy of the iliopsoas, paraspinous intraspinous musculature. The aorta and IVC flow voids are intact. Tiny left renal cyst. DISCS/SPINAL CANAL/NEURAL FORAMINA: L1-L2: The intervertebral disc is normal. L2-L3: There is mild disc degeneration with annular disc bulge causing a mild subarticular recess stenosis with disc extending to the neural foramina without evidence of impingement or significant stenosis. L3-L4: Moderate disc degeneration with annular disc bulge causing a mild subarticular recess stenosis with disc and osteophyte extending to the neural foramina causing mild bilateral stenosis without evidence of neural impingement. L4-L5: Moderate disc degeneration with annular disc bulge causing a severe right and moderate left subarticular recess stenosis with impingement of the transiting L5 nerve roots with superimposed congenitally short pedicles causing a moderate spinal canal stenosis with thecal sac area measuring 0.72 cm². There is disc and osteophyte extending to the neural foramina without evidence of impingement or significant stenosis. L5-S1: Advanced disc degeneration with annular disc bulge causing a mild subarticular recess stenosis with disc and osteophyte extending to the neural foramina causing mild bilateral stenosis without evidence of neural impingement. IMPRESSION: 1. Advanced disc degeneration at L5-S1: Moderate disc degeneration at L3- 4, L4-5, and mild disc degeneration at L2-3 with annular disc bulging causing a mild subarticular recess stenosis at L2-3, L3-4, L5-S1 and a severe right and moderate left subarticular recess stenosis at L4-5 impinging the transiting L5 nerve roots. 2. There is a moderate spinal canal stenosis at L4-5. 3. There is mild bilateral L3-4 and mild bilateral L5-S1 neuroforaminal stenoses without evidence of neural impingement. 4. No evidence of fracture, infection, tumor or arachnoiditis. Note: Compared to the prior lumbar spine MRI from November 20, 2024, there has been no significant change. Electronically signed by: Puja Peterson MD 05/25/25 22:26 PM
[2025-05-29 09:23] LABS: Creatinine Clr Calc Pharmacy 81.0 ml/min
--- NOTE | 2025-05-29 11:59 | Hospitalist Progress Note ---
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 Anticipated lumbar surgical procedure later on today Continue oral pain medications Reviewed pain management consultation, they support current medical regimen and plans for surgery Patient is chronically bradycardic, asymptomatic, no further evaluation or intervention required at bedside and updated plan of care Resume anticoagulation as soon after surgery as possible based on surgical recommendations. Admission and Anticipated Discharge Date Admission Date: May 25, 2025 Subjective Patient has not noticed any appreciable change in his pain with med adjustments yesterday. Patient reports that his heart rate is always in the 40s to 50s since his severe COVID infection in 2019. Anticipating surgical intervention on his lumbar spine later on today Physical Exam Physical Exam: Constitutional: Alert, nontoxic HEENT: Mucous membranes moist. Lungs: Clear to auscultation, decreased, no wheezes rales or rhonchi CV: S1-S2, regular, bradycardic Abdomen: Soft, nontender, nondistended Extremities: No significant edema Neuro: Right lower extremity paresthesias Psych: Cooperative, normal mood Results & Data Results & Data Vital Signs (Past 12 Hours) Vital Signs Temp Pulse Pulse Resp BP Pulse Ox O2 Del Method 05/29/25 07:58 36.5 C 45 L 50 L 18 121/72 93 Room Air Laboratory Results Reviewed imaging, laboratory and diagnostic studies. Pertinent findings as below. WBCs 15.4, elevated due to recent steroids Hemoglobin 14.9 Creatinine 1.2
--- NOTE | 2025-05-29 12:05 | History & Physical Bridge Note ---
Date of Service May 29, 2025 Right L4-5 L5-S1 lumbar decompression History & Physical Bridge Note I have examined the patient, reviewed the History & Physical and in the interval since the performance of the History & Physical I have noted the following changes of clinical significance: no changes noted
--- NOTE | 2025-05-29 12:16 | Orthopedic Progress Note ---
Date of Service May 28, 2025 Subjective Patient continues with combination of right leg radicular pain and L4/L5 and S1 type pattern without improvement with medications. Continued positive straight leg raise on the right side on exam, motor intact. Impression: Continued right leg radiculopathy along with axial symptomatology, lateral recess stenosis at the L4-5 and L5-S1 levels noted on MRI imaging. Plan: Had a 30-minute discussion with the patient and his and mother reviewing the MRI from both November 2024 and also the current 1 from the , reviewed the fact that there is some lateral recess stenosis in combination with some limited disc bulging causing lateral recess stenosis at these 2 levels, this would be the main source of his symptoms. I related that conservative measures could be employed with additional injection and medications, the other option would be a limited decompression on the right side at L4-5 and L5-S1 to decompress the lateral recess region with partial medial hemilaminectomy and facetectomy. After lengthy discussion this was agreed upon, patient is scheduled for surgery May 29, 2025. Review of Systems All systems reviewed & are unremarkable except as noted in HPI & below. Physical Exam . Results & Data Results & Data Laboratory Results . Diagnostic Findings . PG Care Time/CCT Total # of Minutes Spent Total Time Spent with Patient: Total time spent is greater than 50% in coordination of care (as documented) at patient's floor/unit and/or counseling patient: Coding Level of Care Code 35114 SUB INP/OBS CARE 2/35MIN
--- NOTE | 2025-05-29 22:17 | Electrocardiogram Report ---
Test Reason : Blood Pressure : */* mmHG Vent. Rate : 46 BPM Atrial Rate : 46 BPM P-R Int : 122 ms QRS Dur : 84 ms QT Int : 498 ms P-R-T Axes : 79 82 113 degrees QTcB Int : 435 ms Sinus bradycardia Abnormal ECG When compared with ECG of 07-Jul-2024 06:24, No significant change was found Confirmed by Anmol Ibrahim ([id number]) on 05/29/2025 10:17:38 PM Referred By: REFERRED SELF Confirmed By: Anmol Ibrahim
[2025-05-30 07:43] LABS: Hematocrit (blood only) 43.9 % (42.0-52.0); Hemoglobin 15.4 g/dl (14.0-18.0); Mean Corpuscular Hemoglobin 30.1 pg (25.0-34.0); Mean Corpuscular Volume 85.9 fL (80.0-100.0); Platelet Count 229 K/uL (130-400); RDW Standard Deviation 38.4 fL (36.4-46.3); Red Blood Count 5.11 M/uL (4.70-6.10); White Blood Count 15.93 K/ul (4.8-10.8)
[2025-05-30 08:09] LABS: Anion Gap 5.0 (3-11); Blood Urea Nitrogen 32.0 mg/dl (6-23); Calcium 8.9 mg/dl (8.6-10.3); Carbon Dioxide 27.0 mmol/L (21-32); Chloride 102.0 mmol/L (98-107); Creatinine Clr Calc Pharmacy 93.8 ml/min; Glucose 126.0 mg/dl (70-99(Fasting)); Potassium 4.4 mmol/L (3.5-5.1); Sodium 134.0 mmol/L (136-145)
--- NOTE | 2025-05-30 10:13 | Hospitalist Progress Note ---
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 Rodriguez (cardiology) in 2023 - per his note review - Bradycardia: He has an element of bradycardia at baseline. It is possible that some of his symptoms are related to chronotropic incompetence. Outpatient monitoring was performed previously which did not demonstrate chronotropic incompetence. For worsening symptoms repeat monitoring could be performed. - notified by RN this AM about bradycardia and ECG obtained - w/ marked bradycardia, HR 37. Given his planned surgery later today will discuss with cardiology and will place pt on cardiac sonographer. Plan Patient with intractable lumbar pain due to lumbar stenosis and radiculopathy that failed conservative measures including therapies, oral medications and spinal injections. Anticipated lumbar surgical procedure later on today Continue oral pain medications Reviewed pain management consultation, they support current medical regimen and plans for surgery Patient is chronically bradycardic, asymptomatic, will discuss with cardiology as above at bedside and updated plan of care Resume anticoagulation as soon after surgery as possible based on surgical recommendations. Admission and Anticipated Discharge Date Admission Date: May 25, 2025 Subjective Pt seen in follow up of back pain Notified by RN pt bradycardic, asymptomatic, ECG obtained Anticipating surgical intervention on his lumbar spine later on today Pt denies any fever, chills, chest pain, shortness of breath, or abd. pain, denies any dizziness, nausea Pt seen in the past by Dr. Rodriguez (cardiology) for bradycardia Review of Systems Review of Systems: All systems reviewed & are unremarkable except as noted in Subjective Physical Exam Physical Exam: Constitutional: Alert, nontoxic HEENT: Mucous membranes moist. Lungs: Clear to auscultation, decreased, no wheezes rales or rhonchi CV: S1-S2, regular, bradycardic Abdomen: Soft, nontender, nondistended Extremities: No significant edema Neuro: Right lower extremity paresthesias Psych: Cooperative, normal mood Results & Data Results & Data Vital Signs (Past 12 Hours) Vital Signs Temp Pulse Resp BP Pulse Ox O2 Del Method 05/30/25 08:00 36.5 C 41 L 18 115/75 94 Room Air Laboratory Results 05/30/25 Range/Units 06:56 WBC 15.93 H (4.8-10.8) K/ul RBC 5.11 (4.70-6.10) M/uL Hgb 15.4 (14.0-18.0) g/dl Hct 43.9 (42.0-52.0) % MCV 85.9 (80.0-100.0) fL MCH 30.1 (25.0-34.0) pg MCHC 35.1 (32.0-36.0) g/dL RDW Std Deviation 38.4 (36.4-46.3) fL RDW Coeff of Taurus 12.3 (11.5-14.5) % Plt Count 229 (130-400) K/uL MPV 11.0 (9.4-12.4) fL Sodium 134 L (136-145) mmol/L Potassium 4.4 (3.5-5.1) mmol/L Chloride 102 (98-107) mmol/L Carbon Dioxide 27 (21-32) mmol/L Anion Gap 5 (3-11) BUN 32 H (6-23) mg/dl Creatinine 1.07 (0.6-1.4) mg/dl Est Cr Clr Drug Dosing 93.8 ml/min eGFR 81.95 BUN/Creatinine Ratio 29.9 H (10-20) Glucose 126 H (70-99(Fasting)) mg/dl Calcium 8.9 (8.6-10.3) mg/dl Medications Administered Current Inpatient Medications Acetaminophen (Acetaminophen 500 Mg Tab) 1,000 mg PO Q8 [facility] Stop: 06/25/25 13:59 Last Admin: 05/30/25 05:08 Dose: 1,000 mg Albuterol (Albuterol Hfa 8 Gm Inhaler) 2 puffs INH Q6H PRN PRN Reason: shortness of breath or wheezing Stop: 06/25/25 02:11 Apixaban (Apixaban 5 Mg Tablet) 5 mg PO BID [facility] Stop: 06/25/25 08:59 Last Admin: 05/26/25 08:10 Dose: 5 mg Cyclobenzaprine HCl (Cyclobenzaprine Hcl 10 Mg Tab) 10 mg PO TID [facility] Stop: 06/25/25 13:59 Last Admin: 05/30/25 09:30 Dose: 10 mg Dexamethasone (Dexamethasone 4 Mg Tab) 4 mg PO TID [facility] Stop: 06/25/25 08:59 Last Admin: 05/30/25 09:31 Dose: 4 mg Duloxetine HCl (Duloxetine Hcl 30 Mg Cap) 30 mg PO QAM [facility] Stop: 06/27/25 12:44 Last Admin: 05/30/25 09:30 Dose: Not Given Enoxaparin Sodium (Enoxaparin Inj 120 Mg/0.8 Ml Syr) 111 mg SQ Q12 [facility] Stop: 06/25/25 12:14 Last Admin: 05/28/25 07:42 Dose: 111 mg Famotidine (Famotidine 20 Mg Tab) 20 mg PO BID [facility] Stop: 06/27/25 20:59 Last Admin: 05/30/25 09:34 Dose: 20 mg Gabapentin (Gabapentin 300 Mg Cap) 900 mg PO HS [facility] Stop: 06/25/25 20:59 Last Admin: 05/29/25 21:00 Dose: 900 mg Gabapentin (Gabapentin 300 Mg Cap) 600 mg PO BID17 [facility] Stop: 06/27/25 16:59 Last Admin: 05/30/25 09:30 Dose: 600 mg Hydromorphone HCl (Hydromorphone Inj 1 Mg/Ml Syringe) 0.75 mg IV Q4H PRN PRN Reason: Breakthrough Pain Stop: 06/10/25 23:01 Last Admin: 05/27/25 23:24 Dose: 0.75 mg Oxycodone HCl (Oxycodone Hcl Ir 5 Mg Tab (Immediate Release)) 5 mg PO Q3H PRN PRN Reason: Moderate Pain (Scale 4, 5, 6) Stop: 06/09/25 02:11 Oxycodone HCl (Oxycodone Hcl Ir 5 Mg Tab (Immediate Release)) 10 mg PO Q3H PRN PRN Reason: Severe Pain (Scale 7, 8, 9,10) Stop: 06/09/25 07:57 Last Admin: 05/29/25 20:59 Dose: 10 mg Polyethylene Glycol (Polyethylene (Miralax) 17 Gm Pack) 17 gm PO DAILY PRN PRN Reason: Constipation Stop: 06/25/25 02:11 Umeclidinium/Vilanterol (Umeclidinium/Vilanterol 62.5/25mcg 7 Puffs/Inhaler) 1 puffs INH DAILY [facility] Stop: 06/25/25 08:59 Last Admin: 05/30/25 09:31 Dose: 1 puffs
[2025-05-30] MEDS ORDERED: ONDANSETRON INJ 2 MG/ML 2 ML VIAL ONE ×2 (12:39→15:45)
[2025-05-30] MEDS ORDERED: LIDOCAINE 2% 2 ML VIAL/AMP(20MG/ML) INFIL ONE (12:39)
[2025-05-30] MEDS ORDERED: PROPOFOL IV EMULSION 10 MG/ML 20 ML VIAL IV ONE (12:39)
[2025-05-30] MEDS ORDERED: DEXAMETHASONE SOD INJ 4 MG/ML VIAL ONE (12:39)
[2025-05-30] MEDS ORDERED: LARYING-O-JET KIT (LTA) ONE (12:40)
[2025-05-30] MEDS ORDERED: ROCURONIUM BROMIDE 10 MG/ML 5 ML VIAL IV ONE ×3 (12:40→16:44)
[2025-05-30] MEDS ORDERED: HYDROmorphone INJ 2 MG/ML SYR/VIAL ONE ×2 (12:40→17:46)
[2025-05-30] MEDS ORDERED: MIDAZOLAM HCL 1 MG/ML 2ML VIAL ONE (12:40)
--- NOTE | 2025-05-30 14:33 | Cardiology Consultation ---
Date of Consultation May 30, 2025 Assessment & Plan (1) Bradycardia, sinus, persistent: (2) Dyslipidemia: (3) Coronary artery disease: Plan ASSESSMENT/PLAN: 1. Bradycardia: Chronic and asymptomatic. Has been seen by electrophysiology and has not demonstrated issues with chronotropic incompetence in the past. Despite severe back pain, still able to walk up to 0.5 mile without cardiac symptoms. There is no current indication for pacemaker placement. Avoid medications which can further slow the heart rate. 2. CAD: Nonobstructive based on 2020 cath and unremarkable dobutamine stress echo in July 2024. No angina. Risk factor modification. Chronically abnormal ECG. 3. Pulmonary embolism: Chronically on anticoagulation therapy. As per primary hospitalist service. 4. Dyslipidemia: LDL severely elevated in 2023. Recommend high intensity statin therapy if no contraindication once through surgery. 5. Disposition: Cardiology will sign off. He can continue to follow with his primary edger liner, Dr. Rodriguez, in the outpatient setting. Patient care communicated with primary hospitalist, Dr. Forte. Thank you for allowing me to participate in the care of your patient. Please call for any other questions or concerns. Sincerely, Josh Ibrahim M.D. History of Present Illness Reason for Consultation: Bradycardia Requesting Physician: Arnol Forte MD Attending Physician: Arnol Forte MD History of Present Illness Mr. Galeana is a very pleasant 54-year-old gentleman with history significant for chronic/asymptomatic bradycardia, nonobstructive CAD, lumbar stenosis, DVT/pulmonary embolism, dyslipidemia, and sleep apnea. His primary edger liner is Dr. Rodriguez. He was admitted on 05/25/2025 due to severe back pain. Orthopedic surgery is following and plans on pursuing limited decompression on the right side at L4-5 and L5-S1, potentially later today. He was noted to be bradycardic, which is chronic and was then transferred by hospitalist service to telemetry. Patient himself confirms that he has chronically had bradycardia. Heart rates have been reported in the 40s at rest. He has had outpatient monitoring done in the past which did not demonstrate chronotropic incompetence per records. Exertion has been limited due to back pain but he is able to walk half a mile before stopping due to his back pain. He denies chest pain, shortness of breath, syncope, near syncope, palpitations, or edema. He denies melena, hematochezia, or hematuria. On telemetry here, his heart rate has been in the mid 30s to 40s and he remains completely asymptomatic in this regard. He underwent dobutamine stress echo on 07/07/2024 which was negative for ischemia at 86% MPHR. In regards to his back pain, it radiates down his right leg. Review of systems: As above. Family history: No known premature CAD. Social history: Quit smoking 5 to 10 years ago. Denies alcohol or drug abuse. Lives at home with his and 3 sons. A fourth son has since moved out. His was present at the bedside. Allergies Allergy/AdvReac Type Severity Reaction Status Date / Time morphine Allergy Intermediate CHEST Verified 05/25/25 23:15 TIGHTNESS Home Medications Medication Instructions Recorded Confirmed Type walker (Ultra-Light Rollator misc) #1 ea 12/01/24 05/09/25 Rx albuterol sulfate 90 mcg/actuation 2 puff inhalation Q6H PRN 12/08/24 05/25/25 Rx aerosol inhaler shortness of breath or wheezing #3 Inhalers umeclidinium 62.5 mcg-vilanterol 1 inh inhalation DAILY 90 days #90 12/08/24 05/25/25 Rx 25 mcg/actuation powdr for puffs inhalation (Anoro Ellipta) apixaban 5 mg tablet (Eliquis) 5 mg PO BID #180 tabs 05/23/25 05/25/25 Rx gabapentin 300 mg capsule 900 mg PO HS 05/25/25 05/25/25 History Problem List Bradycardia, sinus, persistent Prediabetes Intractable back pain (Acute) Back pain (Acute) Chronic anticoagulation Chronic thromboembolic disease 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 with discogenic back pain and leg pain Lumbar stenosis with neurogenic claudication Lumbar spondylosis Lumbar stenosis without neurogenic claudication Severe back pain Lumbar radiculopathy Herniated lumbar disc without myelopathy Coronary artery disease Obesity (BMI 30-39.9) Abnormal ECG Bradycardia Dyspnea on exertion Dyspnea and respiratory abnormalities Pre-syncope Pre-procedural examination DVT (deep venous thrombosis) Pulmonary embolism Right ventricular dilation Nocturnal hypoxemia Headache Sleep apnea Pulmonary infarction Hyperhomocysteinemia COVID-19 ruled out Discharge planning issues DVT prophylaxis Acute saddle pulmonary embolism (Acute) Acute deep vein thrombosis (DVT) of right lower extremity (Acute) Elevated troponin I level (Acute) Elevated troponin Saddle pulmonary embolus Dyslipidemia History of cardiac cath Non-cardiac chest pain (Acute) Patient History Medical History Pneumonia Surgical History History of appendectomy Family History Brother Deep vein thrombosis Grandfather (Maternal) Diabetes Mother Coronary heart disease Social History Smoking Status: Never smoker Tobacco Type: Cigarettes Age Started Using Tobacco: 14; Age Quit Using Tobacco: 34; packs per day: 1; Do You Dip or Chew Tobacco: No; Hx Alcohol Use: Yes Alcohol type: beer Alcohol Intake Frequency: Monthly or Less Hx Substance Use: No Preferred Language: Tajik Communication Ability: Effective Visitor Services Specialist Required: No Beliefs That Will Affect Care: None marital status: Current Living Situation: Spouse Other Information That Helps Us Care for You: No Feels Safe at Home: Yes Safety Concerns: Feels Safe At This Time Assistive Devices: Walker Physical Exam Physical Exam: Gen.: No acute distress. Alert and oriented. HEENT: Anicteric sclera. Neck: No JVD. No bruits. Normal carotid upstrokes bilaterally. Cardiac: Regular and bradycardic in the 40s. Normal S1-S2. No murmurs, rubs, or gallops. Pulmonary: Clear to auscultation bilaterally without wheezes, rales, or rhonchi. Abdomen: Soft, nontender, nondistended, with normoactive bowel sounds. No bruits noted. Extremities: 2+ radial pulses bilaterally. No edema or cyanosis. Results & Data Vital Signs (Past 12 Hours) Vital Signs Temp Pulse Pulse Pulse Resp BP Pulse Ox 05/30/25 12:28 39 L 05/30/25 10:39 36.5 C 43 L 18 113/68 94 05/30/25 08:00 36.5 C 41 L 18 115/75 94 O2 Del Method 05/30/25 12:28 05/30/25 10:39 Room Air 05/30/25 08:00 Room Air Laboratory Results Laboratory Results - last 24 hr 05/30/25 06:56 WBC 15.93 H RBC 5.11 Hgb 15.4 Hct 43.9 MCV 85.9 MCH 30.1 MCHC 35.1 RDW Std Deviation 38.4 RDW Coeff of Taurus 12.3 Plt Count 229 MPV 11.0 Sodium 134 L Potassium 4.4 Chloride 102 Carbon Dioxide 27 Anion Gap 5 BUN 32 H Creatinine 1.07 Est Cr Clr Drug Dosing 93.8 eGFR 81.95 BUN/Creatinine Ratio 29.9 H Glucose 126 H Calcium 8.9 Diagnostic Findings Telemetry personally reviewed: Sinus bradycardia in the mid 30s to 40s, but mostly in the 40s. ECG personally reviewed 05/30/2025 8:49 AM: Sinus bradycardia 37 bpm. Anterolateral T wave inversion, similar to prior ECG on 05/28/2025 and 07/07/2024. Echo 07/07/2024: Normal LV systolic function. Mildly dilated RV with normal systolic function. No significant valvular abnormalities. Dobutamine stress echo 07/07/2024: Negative for ischemia at 86% MPHR. Chart reviewed. Chest x-ray 05/28/2025: No acute findings per radiology. Labs reviewed and notable for mild leukocytosis, normal hemoglobin, stable renal function, normal potassium, normal TSH, normal transaminase levels. Cardiac cath 12/09/2020 [facility]: Codominant system. Proximal RCA 40%. Mid RCA mo derate CAD with FFR 0.89. PCWP 16; PA 39/12; RV 37/3; LVEDP 13. Medications Administered Current Inpatient Medications Acetaminophen (Acetaminophen 500 Mg Tab) 1,000 mg PO Q8 [facility] Stop: 06/25/25 13:59 Last Admin: 05/30/25 05:08 Dose: 1,000 mg Albuterol (Albuterol Hfa 8 Gm Inhaler) 2 puffs INH Q6H PRN PRN Reason: shortness of breath or wheezing Stop: 06/25/25 02:11 Apixaban (Apixaban 5 Mg Tablet) 5 mg PO BID [facility] Stop: 06/25/25 08:59 Last Admin: 05/26/25 08:10 Dose: 5 mg Cyclobenzaprine HCl (Cyclobenzaprine Hcl 10 Mg Tab) 10 mg PO TID [facility] Stop: 06/25/25 13:59 Last Admin: 05/30/25 09:30 Dose: 10 mg Dexamethasone (Dexamethasone 4 Mg Tab) 4 mg PO TID [facility] Stop: 06/25/25 08:59 Last Admin: 05/30/25 09:31 Dose: 4 mg Duloxetine HCl (Duloxetine Hcl 30 Mg Cap) 30 mg PO QAM [facility] Stop: 06/27/25 12:44 Last Admin: 05/30/25 09:30 Dose: Not Given Enoxaparin Sodium (Enoxaparin Inj 120 Mg/0.8 Ml Syr) 111 mg SQ Q12 [facility] Stop: 06/25/25 12:14 Last Admin: 05/28/25 07:42 Dose: 111 mg Famotidine (Famotidine 20 Mg Tab) 20 mg PO BID [facility] Stop: 06/27/25 20:59 Last Admin: 05/30/25 09:34 Dose: 20 mg Gabapentin (Gabapentin 300 Mg Cap) 900 mg PO HS [facility] Stop: 06/25/25 20:59 Last Admin: 05/29/25 21:00 Dose: 900 mg Gabapentin (Gabapentin 300 Mg Cap) 600 mg PO BID17 [facility] Stop: 06/27/25 16:59 Last Admin: 05/30/25 09:30 Dose: 600 mg Hydromorphone HCl (Hydromorphone Inj 1 Mg/Ml Syringe) 0.75 mg IV Q4H PRN PRN Reason: Breakthrough Pain Stop: 06/10/25 23:01 Last Admin: 05/27/25 23:24 Dose: 0.75 mg Oxycodone HCl (Oxycodone Hcl Ir 5 Mg Tab (Immediate Release)) 5 mg PO Q3H PRN PRN Reason: Moderate Pain (Scale 4, 5, 6) Stop: 06/09/25 02:11 Oxycodone HCl (Oxycodone Hcl Ir 5 Mg Tab (Immediate Release)) 10 mg PO Q3H PRN PRN Reason: Severe Pain (Scale 7, 8, 9,10) Stop: 06/09/25 07:57 Last Admin: 05/30/25 11:38 Dose: 10 mg Polyethylene Glycol (Polyethylene (Miralax) 17 Gm Pack) 17 gm PO DAILY PRN PRN Reason: Constipation Stop: 06/25/25 02:11 Umeclidinium/Vilanterol (Umeclidinium/Vilanterol 62.5/25mcg 7 Puffs/Inhaler) 1 puffs INH DAILY [facility] Stop: 06/25/25 08:59 Last Admin: 05/30/25 09:31 Dose: 1 puffs PG Care Time/CCT Total # of Minutes Spent Total Time Spent with Patient: Total time spent is greater than 50% in coordination of care (as documented) at patient's floor/unit and/or counseling patient: Coding Level of Care Code 88543 INT INP/OBS CARE 2/55MIN Diagnoses Bradycardia, sinus, persistent R00.1 Dyslipidemia E78.5 Coronary artery disease I25.10
--- NOTE | 2025-05-30 14:46 | Anesthesiology Consultation ---
Date of Service May 30, 2025 Assessment & Plan (1) Pre-procedural examination: Chart Review Chart Review: Acceptable Risk for Surgery and Patient NOT seen in Pre Admission Testing Consults Requested none History Surgery Operation Date: 05/30/25 07:00 Proposed Procedures p Right L4-L5 Lumbar Decompression - Robert Adams MD Height/Weight Height: 5 ft 8 in Weight: 110 kg Allergies Allergy/AdvReac Type Severity Reaction Status Date / Time morphine Allergy Intermediate CHEST Verified 05/25/25 23:15 TIGHTNESS Medications Home Medications Medication Instructions Recorded Confirmed Last Taken walker (Ultra-Light Rollator misc) #1 ea 12/01/24 05/09/25 Unknown albuterol sulfate 90 mcg/actuation 2 puff inhalation Q6H PRN 12/08/24 05/25/25 Unknown aerosol inhaler shortness of breath or wheezing #3 Inhalers umeclidinium 62.5 mcg-vilanterol 1 inh inhalation DAILY 90 days #90 12/08/24 05/25/25 05/25/25 25 mcg/actuation powdr for puffs inhalation (Anoro Ellipta) apixaban 5 mg tablet (Eliquis) 5 mg PO BID #180 tabs 05/23/25 05/25/25 05/25/25 08:00 gabapentin 300 mg capsule 900 mg PO HS 05/25/25 05/25/25 05/24/25 Active Medications Generic Name Dose Route Start Last Admin Trade Name Freq PRN Reason Stop Dose Admin Acetaminophen 1,000 mg 05/26/25 14:00 05/30/25 05:08 Acetaminophen 500 Mg Tab PO 06/25/25 13:59 1,000 mg Q8 GRAHAM Administration Apixaban 5 mg 05/26/25 09:00 05/26/25 08:10 Apixaban 5 Mg Tablet PO 06/25/25 08:59 5 mg BID GRAHAM Administration Cyclobenzaprine HCl 10 mg 05/26/25 14:00 05/30/25 09:30 Cyclobenzaprine Hcl 10 Mg Tab PO 06/25/25 13:59 10 mg TID GRAHAM Administration Dexamethasone 4 mg 05/26/25 09:00 05/30/25 09:31 Dexamethasone 4 Mg Tab PO 06/25/25 08:59 4 mg TID GRAHAM Administration Duloxetine HCl 30 mg 05/28/25 12:45 05/30/25 09:30 Duloxetine Hcl 30 Mg Cap PO 06/27/25 12:44 Not Given QAM GRAHAM Enoxaparin Sodium 111 mg 05/26/25 12:15 05/28/25 07:42 Enoxaparin Inj 120 Mg/0.8 Ml Syr SQ 06/25/25 12:14 111 mg Q12 GRAHAM Administration Famotidine 20 mg 05/28/25 21:00 05/30/25 09:34 Famotidine 20 Mg Tab PO 06/27/25 20:59 20 mg BID GRAHAM Administration Gabapentin 900 mg 05/26/25 21:00 05/29/25 21:00 Gabapentin 300 Mg Cap PO 06/25/25 20:59 900 mg HS GRAHAM Administration Gabapentin 600 mg 05/28/25 17:00 05/30/25 09:30 Gabapentin 300 Mg Cap PO 06/27/25 16:59 600 mg BID17 GRAHAM Administration Hydromorphone HCl 0.75 mg 05/27/25 23:02 05/27/25 23:24 Hydromorphone Inj 1 Mg/Ml Syringe IV 06/10/25 23:01 0.75 mg Q4H PRN Administration Breakthrough Pain Oxycodone HCl 10 mg 05/26/25 07:58 05/30/25 11:38 Oxycodone Hcl Ir 5 Mg Tab (Immediate Release) PO 06/09/25 07:57 10 mg Q3H PRN Administration Severe Pain (Scale 7, 8, 9,10) Umeclidinium/Vilanterol 1 puffs 05/26/25 09:00 05/30/25 09:31 Umeclidinium/Vilanterol 62.5/25mcg 7 Puffs/Inhaler INH 06/25/25 08:59 1 puffs DAILY GRAHAM Administration NPO Date Last Intake of Fluids: 05/29/25 Time Last Intake of Fluids: 22:00 Date Last Intake of Solids: 05/29/25 Time Last Intake of Solids: 19:00 Past Medical History Medical History (Updated 05/30/25 @ 14:45 by Stepan Trujillo MD) Sleep apnea Pulmonary embolism DVT (deep venous thrombosis) Bradycardia Obesity (BMI 30-39.9) Coronary artery disease Chronic thromboembolic disease Chronic anticoagulation Prediabetes Intractable back pain Bradycardia, sinus, persistent Pneumonia Past Family History Family History Brother Deep vein thrombosis Grandfather (Maternal) Diabetes Mother Coronary heart disease Past Surgical History Surgical History History of appendectomy Past Anesthesia History No Hx of Anesthesia Complications and No Family Hx of Anesthesia Complications Social History Smoking Status: Never smoker Do You Dip or Chew Tobacco: No Hx Alcohol Use: Yes Alcohol type: beer alcohol intake frequency: a few times a month Hx Substance Use: No substance use type: does not use Physical Exam Vital Signs Last Vital Signs Temp 36.5 C 05/30/25 13:58 Pulse 41 L 05/30/25 13:58 Resp 20 05/30/25 13:58 BP 112/79 05/30/25 13:58 Pulse Ox 91 05/30/25 13:58 O2 Del Method Room Air 05/30/25 13:58 Testing Laboratory Results 05/30/25 06:56 05/30/25 06:56 Hemoglobin A1c 6.5 % (4.5-5.6) H 05/27/25 05:56 Blood Type B Positive 05/29/25 07:20 Antibody Screen NEGATIVE 05/29/25 07:20 Electrocardiogram Date: 05/29/25 Findings: + SB @ (marked sinus didier)
[2025-05-30] MEDS ORDERED: HYDROmorphone INJ 2 MG/ML SYR/VIAL IV PRN (14:49)
[2025-05-30] MEDS ORDERED: PROMETHAZINE HCL 6.25 MG in SODIUM CHLORIDE 0.9% 50 ML IV PRN (14:49)
[2025-05-30] MEDS ORDERED: ONDANSETRON INJ 2 MG/ML 2 ML VIAL IV PRN ×2 (14:49→18:27)
[2025-05-30] MEDS ORDERED: ATROPINE SULFATE 0.1 MG/ML 10ML SYR IV PRN (14:49)
--- NOTE | 2025-05-30 14:51 | Orthopedic Progress Note ---
Date of Service May 30, 2025 Subjective Patient seen and examined, he continues to have the severe right leg pain when mobilizing with physical therapy, he is stating he is incapable of doing any significant ambulation due to the pain which starts in lumbosacral region will radiate combination of posterior but also anterolateral thigh on the right. It has not improved with medications and physical therapy. Exam reveals the pain indicated in areas as stated, he has a positive straight leg raise on the right for right posterior thigh and lateral pain, he has EHL on the right in the 4+ range ankle dorsiflexion in the 4-4+ range. Impression: Continued right leg radicular symptoms, MRI on May 25, 2025 r evealing lateral recess stenosis at the L4-5 and L5-S1 region with small disc protrusion on the right at L5-S1. Plan: I discussed the situation with the family members and also the insurance peer to peer, I feel this is an urgent situation relative to the fact that the patient is incapacitated from any activity secondary to the pain, and would not be an appropriate candidate for additional pain management measures as per pain management note by Dr. Mckee as he has already been through 2 sets of injections in the lumbar spine without any notable improvement. For this reason I feel it is indicated for operative decompression on the right at L5-S1 and also L4-5 with decompression of the nerve roots and lateral recess region. It was discussed with the patient and the as was the previous hospital note indications of the surgery potential risk complications associate the procedure, also indicating that the goal of the surgery will be to relieve improve the radicular symptoms, continued active symptoms may persist secondary to the degeneration involving the lower 3 lumbar levels, this is agreed upon by the patient and family members. Review of Systems All systems reviewed & are unremarkable except as noted in HPI & below. Physical Exam . Results & Data Results & Data Laboratory Results . Diagnostic Findings . PG Care Time/CCT Total # of Minutes Spent Total Time Spent with Patient: Total time spent is greater than 50% in coordination of care (as documented) at patient's floor/unit and/or counseling patient: Coding Level of Care Code 42967 SUB INP/OBS CARE 2/35MIN
[2025-05-30] MEDS ORDERED: GLYCOPYRROLATE 0.2 MG/ML VIAL ONE (14:52)
[2025-05-30] MEDS ORDERED: SUGAMMADEX SODIUM 200 MG/2 ML VIAL IV ONE (15:34)
[2025-05-30] MEDS ORDERED: KETOROLAC 30 MG/ML VIAL ONE (15:42)
[2025-05-30] MEDS: BUPIVACAINE 0.5 % 5 MG/1 ML MPF 30ML VIAL ONE (15:51)
[2025-05-30] MEDS ORDERED: ePHEDrine sulfate 50 MG/5 ML SYR ONE (16:20)
[2025-05-30] MEDS: VANCOMYCIN HCL 1000MG/20ML VIAL ONE (17:08)
[2025-05-30] MEDS: THROMBIN 5000 UNITS KIT ONE (18:02)
[2025-05-30] MEDS: FLOSEAL HEMOSTATIC MATRIX 5ML TOP ONE (18:02)
[2025-05-30] MEDS: GELATIN SPONGE 12-7MM ONE (18:02)
[2025-05-30] MEDS: BUPIVACAINE/EPINEPHRINE 0.5% MPF 1:200,000 30 ML VIAL ONE (18:04)
--- NOTE | 2025-05-30 18:17 | Post Operative Brief Note ---
PG Immediate Post Op with CF Date of Surgery May 30, 2025 Pre & Post Diagnosis Operation Date: 05/30/25 07:00 Pre-Op Diagnosis: Lateral recess stenosis at the L4-5 and L5-S1. Post-Op Diagnosis: Lateral recess stenosis at the L4-5 and L5-S1. I identified the patient and participated in the time-out.: Yes Procedure Operation Date: 05/30/25 07:00 Actual Procedures p Right L4-L5, L5-S1 Lumbar Decompression(Right) - Robert Adams MD Surgeon Robert Adams MD Mold Breaker none Estimated Blood Loss 10 Findings Consistent with Post-Op Diagnosis
[2025-05-30] MEDS ORDERED: METOCLOPRAMIDE HCL INJ 5 MG/ML 2 ML VIAL IV PRN (18:27)
[2025-05-30] MEDS ORDERED: ACETAMINOPHEN 500 MG TAB PO PRN (18:27)
[2025-05-30] MEDS ORDERED: PROMETHAZINE 12.5 MG/50.5 ML BAG IV PRN (18:27)
[2025-05-30] MEDS ORDERED: NALOXONE HCL 0.4 MG/1 ML VIAL/CARP IV PRN (18:27)
[2025-05-30] MEDS ORDERED: HYDROmorphone INJ 0.5 MG/0.5 ML SYR IV PRN (18:27)
[2025-05-30] MEDS ORDERED: ALUMINUM/MAGNESIUM SUSP 30 ML UDC PO PRN (18:27)
[2025-05-30] MEDS ORDERED: ACETAMINOPHEN 1,000 MG/100 ML VIAL IV PRN (18:27)
[2025-05-30] MEDS ORDERED: LORazepam 0.5 MG TAB PO PRN (18:27)
[2025-05-30] MEDS ORDERED: SOD PHOSPHATE/SOD BIPHOSPHATE ENEMA 132 ML BTL PR PRN (18:27)
[2025-05-30] MEDS ORDERED: DO NOT ADMINISTER PNEUMOCOCCAL VACCINE PRN (18:27)
[2025-05-30] MEDS ORDERED: MAGNESIUM HYDROXIDE SUSP 30 ML UDC PO PRN (18:27)
[2025-05-30] MEDS ORDERED: diphenhydrAMINE Capsule 25 MG CAP PO PRN (18:27)
[2025-05-30] MEDS ORDERED: ONDANSETRON 4 MG OD TAB PO PRN (18:27)
[2025-05-30] MEDS ORDERED: DO NOT ADMINISTER FLU VACCINE PRN (18:27)
[2025-05-30] MEDS ORDERED: HYDROmorphone INJ 1 MG/ML SYRINGE IV PRN (18:27)
--- NOTE | 2025-05-30 19:01 | Anesthesiology Progress Note ---
Date of Service May 30, 2025 Anesthesia Post Procedure Vital Signs Vital Signs: Temp Pulse Pulse Pulse Pulse Resp BP 05/30/25 18:50 59 L 12 123/85 05/30/25 18:40 86 14 119/68 05/30/25 18:32 36.6 C 87 16 138/97 05/30/25 15:05 38 L 05/30/25 13:58 36.5 C 41 L 20 112/79 05/30/25 12:28 39 L 05/30/25 10:39 36.5 C 43 L 18 113/68 05/30/25 08:00 36.5 C 41 L 18 115/75 05/29/25 20:46 36.4 C L 49 L 19 114/74 Pulse Ox O2 Del Method O2 Flow Rate 05/30/25 18:50 91 Oxymask 5 05/30/25 18:40 91 Oxymask 5 05/30/25 18:32 93 Oxymask 5 05/30/25 15:05 05/30/25 13:58 91 Room Air 05/30/25 12:28 05/30/25 10:39 94 Room Air 05/30/25 08:00 94 Room Air 05/29/25 20:46 94 Room Air Pain Intensity Right Foot: Pain Intensity: 8 Back: Pain Intensity: 5 Transfer of Care Handoff Completed per policy Notes Mental Status: alert / awake / arousable Patient Amnestic to Procedure: Yes Nausea / Vomiting: adequately controlled Pain: adequately controlled Airway Patency, RR, SpO2: stable & adequate BP & HR: stable & adequate Hydration State: stable & adequate Anesthetic Complications: no major complications apparent and Pt Satisfied with anesthetic care
[2025-05-30] MEDS ORDERED: WALKER SCH (19:27)
[2025-05-30] MEDS: DOCUSATE SODIUM/SENNA 50/8.6MG TAB PO SCH (21:14)
[2025-05-31] MEDS: POLYETHYLENE (MIRALAX) 17 GM PACK PO SCH (05:16)
[2025-05-31 07:53] VITALS: RESP 16
--- NOTE | 2025-05-31 07:58 | Hospitalist Progress Note ---
Date of Service May 31, 2025 Assessment & Plan (1) Lumbar stenosis with neurogenic claudication: (2) 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 with discogenic back pain and leg pain: (3) Obesity (BMI 30-39.9): (4) Sleep apnea: Plan: Has not been using CPAP (5) Chronic thromboembolic disease: (6) Chronic anticoagulation: (7) Prediabetes: (8) Bradycardia, sinus, persistent: Plan: Chronic - possibly resultant from COVID infection 2019 - Pt was seen by Dr. Rodriguez (cardiology) in 2023 - per his note review - Bradycardia: He has an element of bradycardia at baseline. It is possible that some of his symptoms are related to chronotropic incompetence. Outpatient monitoring was performed previously which did not demonstrate chronotropic incompetence. For worsening symptoms repeat monitoring could be performed. - notified by RN yesterday about bradycardia and ECG obtained - w/ marked bradycardia, HR 37. Given his planned surgery - discussed with cardiology and placed pt on surveillance system monitor. Per cardiology - no changes in management needed at this time, follow up as outpt. Plan Patient with intractable lumbar pain due to lumbar stenosis and radiculopathy that failed conservative measures including therapies, oral medications and spinal injections. Initially pt also seen by pain management. S/p lumbar surgical procedure yesterday. Now feels much improved, was ambulating with PT today. Per ortho - Patient is postop day 1 from right sided L4-5 L5-S1 decompression. He notes a distinct improvement in his preoperative symptoms, he feels the pain has improved significantly, he has some incisional pain. Incision dressing with limited drainage. Motor intact. Impression/plan: Postoperative day 1 from decompression with improvement of preoperative symptoms. At this time I discussed with the patient to mobilize with physical therapy today if he is cleared by medicine and physical therapy he can discharge home. Continue oral pain medications Anticoagulation was resumed. Admission and Anticipated Discharge Date Admission Date: May 25, 2025 Subjective Pt seen in follow up of back pain, now s/p surgery He is feeling much better today, already was working with PT and is interested in discharge home. Pt seen by orthopedic surgery and cleared for discharge. Pt denies any fever, chills, chest pain, shortness of breath, abd. pain, n/v. Pain well controlled now. Review of Systems Review of Systems: All systems reviewed & are unremarkable except as noted in Subjective Physical Exam Physical Exam: Constitutional: Alert, nontoxic HEENT: Mucous membranes moist. Lungs: Clear to auscultation, decreased, no wheezes rales or rhonchi CV: S1-S2, regular, bradycardic Abdomen: Soft, nontender, nondistended Extremities: No significant edema Neuro: awake, alert, answers appropriately, speech fluent, moves extremities Psych: Cooperative, normal mood Results & Data Results & Data Vital Signs (Past 12 Hours) Vital Signs Temp Pulse Pulse Pulse Resp BP Pulse Ox 05/31/25 07:52 36.6 C 48 L 16 111/74 91 05/31/25 07:23 51 L 05/31/25 04:00 36.5 C 54 L 18 120/78 94 05/30/25 23:20 49 L 05/30/25 23:15 36.5 C 58 L 18 116/73 96 05/30/25 21:15 36.5 C 66 18 116/81 95 05/30/25 20:15 36.6 C 52 L 18 126/73 93 05/30/25 20:12 53 L O2 Del Method O2 Flow Rate 05/31/25 07:52 Room Air 05/31/25 07:23 05/31/25 04:00 Room Air 05/30/25 23:20 05/30/25 23:15 Room Air 05/30/25 21:15 Nasal Cannula 2 05/30/25 20:15 Nasal Cannula 2 05/30/25 20:12 Laboratory Results 05/30/25 Range/Units 06:56 Sodium 134 L (136-145) mmol/L Potassium 4.4 (3.5-5.1) mmol/L Chloride 102 (98-107) mmol/L Carbon Dioxide 27 (21-32) mmol/L Anion Gap 5 (3-11) BUN 32 H (6-23) mg/dl Creatinine 1.07 (0.6-1.4) mg/dl Est Cr Clr Drug Dosing 93.8 ml/min eGFR 81.95 BUN/Creatinine Ratio 29.9 H (10-20) Glucose 126 H (70-99(Fasting)) mg/dl Calcium 8.9 (8.6-10.3) mg/dl Medications Administered Current Inpatient Medications Acetaminophen (Acetaminophen 500 Mg Tab) 1,000 mg PO Q8 GRAHAM Stop: 06/25/25 13:59 Last Admin: 05/31/25 05:15 Dose: 1,000 mg Acetaminophen (Acetaminophen 500 Mg Tab) 1,000 mg PO Q8H PRN PRN Reason: MILD Pain (1,2,3) & Pre PT Stop: 06/29/25 18:26 Al Hydrox/Mg Hydrox/Simethicone (Aluminum/Magnesium Susp 30 Ml Udc) 30 ml PO Q6H PRN PRN Reason: Dyspepsia Stop: 06/29/25 18:26 Albuterol (Albuterol Hfa 8 Gm Inhaler) 2 puffs INH Q6H PRN PRN Reason: shortness of breath or wheezing Stop: 06/25/25 02:11 Apixaban (Apixaban 5 Mg Tablet) 5 mg PO BID [facility] Stop: 06/25/25 08:59 Last Admin: 05/30/25 21:10 Dose: 5 mg Bisacodyl (Bisacodyl 10 Mg Supp) 10 mg DC DAILY PRN PRN Reason: Constipation Stop: 06/29/25 18:26 Cyclobenzaprine HCl (Cyclobenzaprine Hcl 10 Mg Tab) 10 mg PO TID [facility] Stop: 06/25/25 13:59 Last Admin: 05/30/25 21:14 Dose: 10 mg Dexamethasone (Dexamethasone 4 Mg Tab) 4 mg PO TID [facility] Stop: 06/25/25 08:59 Last Admin: 05/30/25 21:11 Dose: 4 mg Diphenhydramine HCl (Diphenhydramine Capsule 25 Mg Cap) 25 mg PO Q6H PRN PRN Reason: Allergic Rhinitis/Insomnia Stop: 06/29/25 18:26 Duloxetine HCl (Duloxetine Hcl 30 Mg Cap) 30 mg PO QAM [facility] Stop: 06/27/25 12:44 Last Admin: 05/30/25 09:30 Dose: Not Given Famotidine (Famotidine 20 Mg Tab) 20 mg PO BID [facility] Stop: 06/27/25 20:59 Last Admin: 05/30/25 21:14 Dose: 20 mg Famotidine (Famotidine 20 Mg Tab) 20 mg PO Q12H PRN PRN Reason: Dyspepsia Stop: 06/29/25 18:26 Gabapentin (Gabapentin 300 Mg Cap) 900 mg PO HS [facility] Stop: 06/25/25 20:59 Last Admin: 05/30/25 21:10 Dose: 900 mg Gabapentin (Gabapentin 300 Mg Cap) 600 mg PO BID17 GRAHAM Stop: 06/27/25 16:59 Last Admin: 05/30/25 19:56 Dose: Not Given Hydromorphone HCl (Hydromorphone Inj 1 Mg/Ml Syringe) 0.75 mg IV Q4H PRN PRN Reason: Breakthrough Pain Stop: 06/10/25 23:01 Last Admin: 05/27/25 23:24 Dose: 0.75 mg Hydroxyzine HCl (Hydroxyzine Hcl 25 Mg Tab) 25 mg PO Q8H PRN PRN Reason: Anxiety Stop: 06/29/25 18:26 Acetaminophen (Ofirmev) 1,000 mg in 100 mls @ 400 mls/hr IV Q8H PRN PRN Reason: MILD Pain (1,2,3) & Pre PT Stop: 05/31/25 18:27 Cefazolin Sodium (Ancef 2000mg) 2,000 mg in 15 mls @ 3.75 mls/min IV Q8H [facility]; Protocol Stop: 05/31/25 08:33 Last Admin: 05/30/25 23:39 Dose: 3.75 mls/min Promethazine HCl (Phenergan) 12.5 mg in 50.5 mls @ 202 mls/hr IV Q6H PRN PRN Reason: Nausea And Vomiting Stop: 06/29/25 18:26 Influenza Virus Vaccine Quadrival (Do Not Administer Flu Vaccine) 1 each N/A PRN PRN PRN Reason: Notification Stop: 06/29/25 18:26 Lorazepam (Lorazepam 0.5 Mg Tab) 0.5 mg PO Q8H PRN PRN Reason: Sedation/Anxiety Stop: 06/29/25 18:26 Lorazepam (Lorazepam 2 Mg/1 Ml Vial) 0.5 mg IV Q8H PRN PRN Reason: Sedation/Anxiety Stop: 06/29/25 18:26 Magnesium Hydroxide (Magnesium Hydroxide Susp 30 Ml Udc) 30 ml PO Q24H PRN PRN Reason: Constipation Stop: 06/29/25 18:26 Metoclopramide HCl (Metoclopramide Hcl Inj 5 Mg/Ml 2 Ml Vial) 10 mg IV Q6H PRN PRN Reason: Nausea &/or Vomiting Stop: 06/29/25 18:26 Naloxone HCl (Naloxone Hcl 0.4 Mg/1 Ml Vial/Carp) 0.1 mg IV Q5M PRN PRN Reason: Oversedation/Resp depression Stop: 06/29/25 18:26 Ondansetron HCl (Ondansetron Inj 2 Mg/Ml 2 Ml Vial) 4 mg IV Q6H PRN PRN Reason: Nausea &/or Vomiting Stop: 06/29/25 18:26 Ondansetron HCl (Ondansetron 4 Mg Od Tab) 4 mg PO Q6H PRN PRN Reason: Nausea Stop: 06/29/25 18:26 Oxycodone HCl (Oxycodone Hcl Ir 5 Mg Tab (Immediate Release)) 5 mg PO Q3H PRN PRN Reason: Moderate Pain (Scale 4, 5, 6) Stop: 06/09/25 02:11 Oxycodone HCl (Oxycodone Hcl Ir 5 Mg Tab (Immediate Release)) 10 mg PO Q3H PRN PRN Reason: Severe Pain (Scale 7, 8, 9,10) Stop: 06/09/25 07:57 Last Admin: 05/30/25 11:38 Dose: 10 mg Oxycodone/Acetaminophen (Oxycodone/Acetaminophen 5mg/325mg Tab) 1 - 2 tab PO Q4H PRN PRN Reason: MOD/SEV Pain & Pre PT Stop: 06/13/25 18:26 Pneumococcal Polyvalent Vaccine (Do Not Administer Pneumococcal Vaccine) 1 each N/A PRN PRN PRN Reason: Notification Stop: 06/29/25 18:26 Polyethylene Glycol (Polyethylene (Miralax) 17 Gm Pack) 17 gm PO DAILY PRN PRN Reason: Constipation Stop: 06/25/25 02:11 Polyethylene Glycol (Polyethylene (Miralax) 17 Gm Pack) 17 gm PO Q6 [facility] Stop: 06/30/25 05:59 Last Admin: 05/31/25 05:16 Dose: 17 gm Senna/Docusate Sodium (Docusate Sodium/Senna 50/8.6mg Tab) 2 tab PO HS [facility] Stop: 06/29/25 20:59 Last Admin: 05/30/25 21:14 Dose: 2 tab Sodium Biphosphate/Sodium Phosphate (Sod Phosphate/Sod Biphosphate Enema 132 Ml Btl) 132 ml DC ONE PRN PRN Reason: Constipation Stop: 06/29/25 18:26 Umeclidinium/Vilanterol (Umeclidinium/Vilanterol 62.5/25mcg 7 Puffs/Inhaler) 1 puffs INH DAILY [facility] Stop: 06/25/25 08:59 Last Admin: 05/30/25 09:31 Dose: 1 puffs
--- NOTE | 2025-05-31 08:18 | Fluoroscopy Report ---
FL spine 1V any level CLINICAL HISTORY: RIGHT L4-L5 DECOMPRESSION COMPARISON STUDY: None FLUOROSCOPY TIME: 33 seconds FLUOROSCOPY IMAGES: 6 EXPOSURE DOSE: 27 mGy FINDINGS: Fluoroscopy was provided for lumbar surgery. IMPRESSION: Intraoperative fluoroscopy. ACT 112: Negative or not required by law. Electronically signed by: Paulino Maxwell M.D. 05/31/2025 8:16 AM
--- NOTE | 2025-05-31 08:35 | Orthopedic Progress Note ---
Date of Service May 31, 2025 Subjective Patient is postop day 1 from right sided L4-5 L5-S1 decompression. He notes a distinct improvement in his preoperative symptoms, he feels the pain has improved significantly, he has some incisional pain. Incision dressing with limited drainage. Motor intact. Impression/plan: Postoperative day 1 from decompression with improvement of preoperative symptoms. At this time I discussed with the patient to mobilize with physical therapy today if he is cleared by medicine and physical therapy he can discharge home if not we will continue with additional therapy until cleared, he is in agreement with this plan. Review of Systems All systems reviewed & are unremarkable except as noted in HPI & below. Physical Exam . Results & Data Results & Data Laboratory Results . Diagnostic Findings . PG Care Time/CCT Total # of Minutes Spent Total Time Spent with Patient: Total time spent is greater than 50% in coordination of care (as documented) at patient's floor/unit and/or counseling patient: Coding Level of Care Code 35532 Post Operative Follow-Up
[2025-05-31] MEDS: FAMOTIDINE 20 MG TAB PO PRN (08:42)
[2025-05-31 09:08] LABS: Hematocrit (blood only) 43.1 % (42.0-52.0); Hemoglobin 15.0 g/dl (14.0-18.0); Mean Corpuscular Hemoglobin 30.3 pg (25.0-34.0); Mean Corpuscular Volume 87.1 fL (80.0-100.0); Platelet Count 230 K/uL (130-400); RDW Standard Deviation 39.2 fL (36.4-46.3); Red Blood Count 4.95 M/uL (4.70-6.10); White Blood Count 21.13 K/ul (4.8-10.8)
[2025-05-31 09:25] LABS: Anion Gap 6.0 (3-11); Blood Urea Nitrogen 36.0 mg/dl (6-23); Calcium 8.6 mg/dl (8.6-10.3); Carbon Dioxide 27.0 mmol/L (21-32); Chloride 102.0 mmol/L (98-107); Creatinine Clr Calc Pharmacy 87.0 ml/min; Glucose 128.0 mg/dl (70-99(Fasting)); Magnesium 2.4 mg/dl (1.7-2.4); Potassium 4.6 mmol/L (3.5-5.1); Sodium 135.0 mmol/L (136-145)
--- NOTE | 2025-05-31 09:48 | Operative Report ---
PG Post Operative Report Pre & Post Diagnosis Operation Date: 05/30/25 07:00 Pre-Op Diagnosis: Lateral recess stenosis at the L4-5 and L5-S1. Post-Op Diagnosis: Lateral recess stenosis at the L4-5 and L5-S1. I identified the patient and participated in the time-out.: Yes Procedure Operation Date: 05/30/25 07:00 Actual Procedures p Right L4-L5, L5-S1 Lumbar Decompression(Right) - Robert Adams MD Surgeon Robert Adams MD [employer] Adf Developer none Estimated Blood Loss 10 Findings Consistent with Post-Op Diagnosis Specimens none Description of Procedure 1. L4-5 right posterior lumbar decompression. (76047) 2. L5-S1 right posterior lumbar decompression. (82349) Patient brought to the operating room after adequate anesthesia was carefully positioned on the Adriano frame and checked for positioning. Preprep was performed, fluoroscopy was brought in to nhan for the area the incision followed by prep and drape. Longitudinal incision was made over the L4-5 and L5-S1 levels and advanced down on the right side to the interlaminar region at both levels, this was confirmed fluoroscopically. Starting at the L5-S1 level, a right sided inferior Wilber laminectomy along the inferior laminar edge of L4-5, across the superior laminar edge of S1 and with partial medial facetectomies performed, this was carried down into the canal and the dura and nerve roots were visualized and mobilized, decompressing the lateral region. Fluoroscopic images confirming location were performed. Upon completion, Floseal was applied, I then moved to the L4-5 level where a similar decompression was performed. Inferior hemilaminectomy along the inferior aspect of L4 across the superior laminar edge of L5 and along the medial facet with decompression of the exiting nerve roots was performed, there was also removal of minimal disc bulge in this region, final inspection revealed no issues either side, any epidural bleeding was controlled with the minor amount of epidural bipolar, Floseal. Operative site was irrigated, combination of Floseal and vancomycin powder was applied followed by closure with 0 Vicryl sutures in 2 layers, reattaching the supraspinous ligament followed by 2-0 Vicryl sutures and susanna for the skin. Sterile dressings applied, patient tolerated procedure well was taken recovery room in satisfactory condition. I attest to the content of the Intraoperative Record and any orders documented therein. Any exceptions are noted below.
[2025-05-31 11:55] VITALS: TEMP 98.1; O2SAT 92
[2025-05-31 13:19] VITALS: BP 111/74; PULSE 54
--- NOTE | 2025-05-31 13:25 | Discharge Summary ---
Date of Service May 31, 2025 Admission HPI Per Admitting Provider 54-year-old male with past medical history significant for dyslipidemia, prediabetes, nocturnal hypoxemia, obstructive sleep apnea not using CPAP, chronic saddle pulm embolism with acute cor pulmonale, history of DVT, CAD, lumbar disc disorder, right inguinal hernia comes because of severe back pain. Patient has ongoing back pain for some time. Had epidural shot on May 09, 2025 but states it did not help his pain much. Today the pain was very severe could not ambulate. The pain is shooting down his right leg. Right leg is numb and heavy. Could not fully lift the right leg. Denies any bowel or bladder inco ntinence. Denies any fevers. Denies any headache. No cough. No chest pain or shortness breath. No nausea. No abdominal pain. Normal bowel and bladder movements. Hemodynamics are okay. Past medical history. As mentioned above. Past surgical history. Cardiac cath. Colonoscopy. EGD. Laparoscopic inguinal hernia repair. Laparoscopic appendectomy. Social history. . Quit smoking 2009. Smokes 0.5 pack a day for 25 years. Alcohol rare. No drug use. Family history. Brother had a clotting disorder. Father had clotting disorder. Maternal grandfather diabetes. Maternal grandmother had glaucoma. Admission Exam Per Admitting Provider General- Not in distress Head- atraumatic Eyes- PERRL. ENT- oropharynx clear Neck- supple, no JVD. Lungs- clear to auscultation no wheezing or crackles Heart- regular rhythm; no murmur, no gallop. Abdomen- normal bowel sounds, soft, nontender, no distension Extremities- no pretibial edema, no erythema seen Neuro- alert, oriented PERRL, no facial palsy; no dysarthria; moves extremities. Musculoskeletal; painful right leg movement. Straight leg raise test right leg positive. Principal Diagnosis Severe back pain secondary to Lateral recess stenosis at the L4-5 and L5-S1.now s/p lumbar decompression Discharge Exam Constitutional: Alert, nontoxic HEENT: Mucous membranes moist. Lungs: Clear to auscultation, decreased, no wheezes rales or rhonchi CV: S1-S2, regular, bradycardic Abdomen: Soft, nontender, nondistended Extremities: No significant edema Neuro: awake, alert, answers appropriately, speech fluent, moves extremities Psych: Cooperative, normal mood Discharge Data Allergies Allergy/AdvReac Type Severity Reaction Status Date / Time morphine Allergy Intermediate CHEST Verified 05/25/25 23:15 TIGHTNESS Consultations 05/25/25 23:18 ED Decision to Admit Stat 05/26/25 20:00 Consult Orthopedic Spine Surgery Stat 05/28/25 12:57 Consult Pain Management Routine 05/30/25 08:55 Consult Cardiology Routine Procedures Performed Operation Date: 05/30/25 07:00 Actual Procedures p Right L4-L5, L5-S1 Lumbar Decompression(Right) - Robert Adams MD Ordered Studies 05/25/25 19:33 MR lumbar spine wo con Stat IMPRESSION: 1. Advanced disc degeneration at L5-S1: Moderate disc degeneration at L3- 4, L4-5, and mild disc degeneration at L2-3 with annular disc bulging causing a mild subarticular recess stenosis at L2-3, L3-4, L5-S1 and a severe right and moderate left subarticular recess stenosis at L4-5 impinging the transiting L5 nerve roots. 2. There is a moderate spinal canal stenosis at L4-5. 3. There is mild bilateral L3-4 and mild bilateral L5-S1 neuroforaminal stenoses without evidence of neural impingement. 4. No evidence of fracture, infection, tumor or arachnoiditis. Note: Compared to the prior lumbar spine MRI from November 20, 2024, there has been no significant change. 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 Rodriguez (cardiology) in 2023 - per his note review - Bradycardia: He has an element of bradycardia at baseline. It is possible that some of his symptoms are related to chronotropic incompetence. Outpatient monitoring was performed previously which did not demonstrate chronotropic incompetence. For worsening symptoms repeat monitoring could be performed. - notified by RN yesterday about bradycardia and ECG obtained - w/ marked bra dycardia, HR 37. Given his planned surgery - discussed with cardiology and placed pt on monitor worker. Per cardiology - no changes in management needed at this time, follow up as outpt. Plan Patient with intractable lumbar pain due to lumbar stenosis and radiculopathy that failed conservative measures including therapies, oral medications and s lj injections. Initially pt also seen by pain management. S/p lumbar surgical procedure yesterday. Now feels much improved, was ambulating with PT today. Per ortho - Patient is postop day 1 from right sided L4-5 L5-S1 decompression. He notes a distinct improvement in his preoperative symptoms, he feels the pain has improved significantly, he has some incisional pain. Incision dressing with limited drainage. Motor intact. Impression/plan: Postoperative day 1 from decompression with improvement of preoperative symptoms. At this time I discussed with the patient to mobilize with physical therapy today if he is cleared by medicine and physical therapy he can discharge home. Continue oral pain medications Anticoagulation was resumed. Total Time Total Time Spent Total Time Spent (In Minutes): 40 Discharge Plan Discharge Items Patient Disposition: Home - Self-Care Reason For Visit: SEVERE BACK PAIN Discharge Diagnosis: Severe back pain secondary to Lateral recess stenosis at the L4-5 and L5-S1.now s/p lumbar decompression Condition on Discharge: Fair Activity: Per Instructions section Non-emergency contact: Primary Care Provider, Surgeon and Specialist Call non-emergency contact if: you have any medication questions and your symptoms worsen Follow-up/Referrals: Robert Adams MD [Surgeon] - Carmen Blake MD [Primary Care Provider] - (Date & Time 06/08/2025 10:00 AM Provider: Carmen Blake MD [facility] ) Diet: Heart Healthy [place] Attending Provider Instructions: Follow up with primary care doctor and orthopedic surgeon. The appointment with primary care physician was scheduled for you for 06/08/2025. Please, read instructions from your orthopedic surgeon below: Addtl Nuclear Monitoring Technician Provider Instructions: May shower on 3rd day after surgery. You can wash the incision and surgical site with soap and water briefly and then blot dry with a clean towel/cloth. Cover with a new, sterile dry dressing. If unable to change your dressing, then leave hospital dressing intact and cover the area for showering. Do NOT soak incision. No strenuous activity, lifting, or exercise until further instructed. Use the prescribed pain medication, or [id number] Tylenol, as needed for pain relief -- follow directions on the bottle; limit Tylenol to 4,000 mg maximum in a 24-hour period. No use of NSAIDs (i.e ibuprofen/Advil/Motrin, naproxen/Aleve, etc.) for at least 2 months after surgery Pending Studies at Discharge: No Stand-Alone Forms: My [facility], Smoking Cessation Medications and DC Order Prescriptions: New oxycodone 5 mg tablet 5 mg PO Q6H PRN (Reason: pain) Qty: 30 0RF cyclobenzaprine 10 mg Tablet 10 mg PO TID PRN (Reason: muscle spasm) Qty: 7 0RF duloxetine 30 mg Capsule,Delayed Release(Dr/Ec) 30 mg PO QAM Qty: 30 0RF Continued Eliquis 5 mg tablet 5 mg PO BID Qty: 180 3RF albuterol sulfate 90 mcg/actuation HFA aerosol inhaler 2 puff inhalation Q6H PRN (Reason: shortness of breath or wheezing) Qty: 3 3RF Rx Instructions: Use 2 puffs 10 minutes before going out in cold air or prior to exercise Anoro Ellipta 62.5-25 mcg/actuation blister with device 1 inh inhalation DAILY 90 Days Qty: 90 3RF (DME) Ultra-Light Rollator Misc See Rx Instructions .Route Qty: 1 0RF Rx Instructions: As directed gabapentin 300 mg capsule 900 mg PO HS Discharge Orders: Discharge Order (Routine); Ordered 05/31/25 Ordered By: Arnol Gilliam/Other Patient Handouts: A1C, 5 Steps for Eating Healthier Admission Data Admit Date/Time: 05/25/25 23:56 Attending Provider: Arnol Forte Admit Provider: Fran England Primary Care Provider: Carmen Blake Other Providers: Rajiv Ardon; Fran England; Andrew Moise; Donna Mckee; Anmol Ibrahim Other Interventions: Discharge Summary Assessment (RN) Last Done: 05/31/25 13:18
--- NOTE | 2025-06-01 05:04 | Electrocardiogram Report ---
Test Reason : Blood Pressure : */* mmHG Vent. Rate : 37 BPM Atrial Rate : 37 BPM P-R Int : 126 ms QRS Dur : 86 ms QT Int : 568 ms P-R-T Axes : 44 45 99 degrees QTcB Int : 445 ms Marked sinus bradycardia Possible Left atrial enlargement Abnormal ECG When compared with ECG of 28-May-2025 21:39, No significant change was found Confirmed by Anmol Ibrahim ([id number]) on 06/01/2025 5:03:43 AM Referred By: REFERRED SELF Confirmed By: Anmol Ibrahim
== END 2025-05-31 14:34 | disposition home or self-care (01) | DRG 516 ==
LOC: ED 19:16 → SUATTDRO 23:56 → 3W 23:56 → 2N 05-30 10:35